=== PATIENT | male | born 1955 | race Caucasian/White ===

== ENCOUNTER 2018-07-03 17:10 | Inpatient (IN) | payer MEDICARE ==
[2018-07-03] MEDS ORDERED: Ondansetron PF 4 MG/2 ML Vial ONE (17:38)
--- NOTE | 2018-07-03 18:52 | CT ---
CT OF BRAIN PERFORMED WITHOUT CONTRAST ENHANCEMENT: History: Head injury. FINDINGS: The ventricular and cisternal system shows some mild generalized atrophy. There are no signs of any i ntracerebral hemorrhage or extraaxial fluid collection. Mastoid air cells and visualized sinuses are clear. IMPRESSION: No acute intracranial abnormalities. POS: [facility]
[2018-07-03 19:06] LABS: #Basophils 0.1 thou/uL (0.0-0.2); #Eosinphils 0.1 thou/uL (0.0-0.7); #Lymphocytes 0.7 thou/uL (1.20-3.40); #Monocytes 0.8 thou/uL (0.11-0.59); %Basophils 0.6 % (0.0-1.0); %Eosinophils 0.7 % (0.0-10.0); %Lymphocytes 7.6 % (21.0-51.0); %Monocytes 9.4 % (0.0-10.0); %Neutrophils 81.7 % (42.0-75.0); Hemoglobin 10.5 g/dL (14.0-18.0); Mean Corpuscular HGB CONC 33.6 g/dL (32.0-36.0); Mean Corpuscular Hemoglobin 27.4 pg (27.0-31.0); Mean Corpuscular Volume 81.5 fL (78.0-98.0); Mean Platelet Volume 8.9 fL (7.4-10.4); Platelet Count 281 thou/uL (130-400); RBC Distribution Width 13.7 % (11.5-14.5); Red Blood Cell (RBC) Count 3.84 mill/uL (4.70-6.10); White Blood Cell (WBC) Count 8.6 thou/uL (4.8-10.8)
--- NOTE | 2018-07-03 19:08 | RAD ---
PORTABLE CHEST: 07/03/18 HISTORY: Patient fell down stairs. Diffuse pain. Heart size and mediastinum are within normal limits. The lungs are clear of any infiltrates. I do not visualize any rib fractures. No signs of pneumothorax. IMPRESSION: Unremarkable portable chest. POS: [facility]
[2018-07-03 19:22] LABS: Bilirubin Small (Negative); Blood, Urine Large (Negative); Clarity CLOUDY (Clear); Glucose, Urine (Dipstick) >=1000 mg/dL (Negative); Leukocyte Negative (Negative); Nitrite Negative (Negative); Protein, Urine (Dipstick) 100 mg/dL (Neg-Trace); Specific Gravity, Urine 1.028 (1.002-1.036)
[2018-07-03 19:23] LABS: Bacteria/HPF None Seen HPF (None Seen); RBC/HPF 0-3 HPF (0-3); Squamous Epithelial 0-3 HPF (0-3)
[2018-07-03 19:29] LABS: Pathc Cast-AUWi Flag 5.66 (0-2.49)
[2018-07-03 19:29] LABS: ALT (SGPT) 13 U/L (8-55); AST (SGOT) 27 U/L (5-34); Albumin 3.8 g/dL (3.4-4.8); Alkaline Phosphatase 127 U/L (40-150); Anion Gap 14 mmol/L (10-20); BUN (Urea Nitrogen) 24 mg/dL (8.4-25.7); CK (CPK) 852 U/L (30-200); Calc. Creatinine Clearance 0 mL/min (70-130); Calcium 9.3 mg/dL (7.8-10.44); Carbon Dioxide 26 mmol/L (23-31); Chloride 94 mmol/L (98-107); Estimated GFR-MDRD 33; Globulin 3.4 g/dL (2.4-3.5); Glucose 345 mg/dL (80-115); Potassium 3.8 mmol/L (3.5-5.1); Protein, Total 7.2 g/dL (5.8-8.1); Sodium 130 mmol/L (136-145)
[2018-07-03 19:38] LABS: Hyaline Casts/LPF 4-6 HYALINE CAST LPF (0-3 Hyaline); Manual Microscopic Reviewed? No Path Casts Seen; Renal Epithelial None Seen HPF (0-3); Transitional Epithelial NONE SEEN HPF (0-3)
[2018-07-03 23:34] LABS: Lactic Acid 1.5 mmol/L (0.5-2.2)
[2018-07-04 01:59] LABS: Troponin I Less than 0.010 ng/mL (< 0.028)
[2018-07-04] MEDS ORDERED: Sodium Chloride 0.9% 1,000 ML IV SCH ×2 (02:45→09:00)
[2018-07-04 03:34] VITALS: BMI 32.6
[2018-07-04] MEDS ORDERED: Insulin Regular 300 UNITS/3 ML VIAL SC PRN (08:47)
[2018-07-04] MEDS ORDERED: Dextrose 50% Abboject 50 ML SYRINGE SLOW IVP PRN (08:47)
[2018-07-04] MEDS ORDERED: Dextrose 5% in Water 1,000 ML IV PRN (08:47)
[2018-07-04] MEDS ORDERED: Ondansetron PF 4 MG/2 ML Vial IVP PRN (08:48)
[2018-07-04] MEDS ORDERED: Senokot S 8.6-50 MG TAB PO PRN (08:48)
[2018-07-04] MEDS ORDERED: Calcium Carbonate 500 MG ChewTAB PO PRN (08:48)
[2018-07-04] MEDS ORDERED: Ondansetron ODT 4 MG TAB PO PRN (08:48)
[2018-07-04] MEDS ORDERED: Acetaminophen 325 MG TAB PO PRN (08:48)
--- NOTE | 2018-07-04 10:30 | RAD ---
UPRIGHT AND SUPINE FRONTAL IMAGING OF THE ABDOMEN: Date: 07-04-18 Comparison: None. History: Evaluate for small bowel obstruction, nausea, vomiting, and abdominal pain. FINDINGS: Upright imaging demonstrates no free intraperitoneal air. There is no small or large bowel gaseous distention. No airfluid levels are seen on upright imaging. IMPRESSION: No evidence for free intraperitoneal air or small bowel obstruction. POS: [facility]
[2018-07-04 11:33] LABS: Anion Gap 11 mmol/L (10-20); BUN (Urea Nitrogen) 17 mg/dL (8.4-25.7); Calc. Creatinine Clearance 61 mL/min (70-130); Calcium 8.6 mg/dL (7.8-10.44); Carbon Dioxide 25 mmol/L (23-31); Chloride 100 mmol/L (98-107); Estimated GFR-MDRD 43; Glucose 207 mg/dL (80-115); Lipase 43 U/L (8-78); Magnesium 1.5 mg/dL (1.6-2.6); Phosphorus 2.4 mg/dL (2.3-4.7); Potassium 3.4 mmol/L (3.5-5.1); Sodium 133 mmol/L (136-145)
[2018-07-04] MEDS: Multivit, Therapeutic 1 TAB PO SCH (11:57)
[2018-07-04] MEDS: Insulin Regular 300 UNITS/3 ML VIAL SC PRN ×2 (11:58→16:56)
[2018-07-04 12:11] LABS: Folate (Folic Acid) 7.5 ng/mL (7.0-31.4)
[2018-07-04] MEDS ORDERED: Potassium Chloride 10 MEQ TAB PO SCH (12:45)
[2018-07-04] MEDS ORDERED: Magnesium 2 GM/NS 0.9% 100 ML 2 GM in Premix Bag 1 BAG IVPB SCH (12:45)
[2018-07-04] MEDS ORDERED: Magnesium 2 GM/50 ML 2 GM in Premix Bag 1 BAG IVPB SCH (13:00)
[2018-07-04] MEDS ORDERED: Nitroglycerin 0.4 MG TAB (25 Tab Bottle) PO PRN (15:44)
--- NOTE | 2018-07-04 16:50 | HP ---
PRIMARY CARE PHYSICIAN: Dr. Gerry Peoples. CHIEF COMPLAINT: Generalized weakness and frequent falls. HISTORY OF PRESENT ILLNESS: The patient is a 63-year-old male with diabetes mellitus type 2 and coronary artery disease, presented to the emergency room with the above complaints. The patient is a poor historian and limited information is available from the patient. He has been feeling weak and dizzy over the last 2 weeks. He also has been not eating well due to persistent nausea and vomiting. He had some diarrhea last week that has more or less improved. He denies any loss of consciousness. He also has been falling multiple times recently. He denies any headache, double vision, blurring of vision, or facial asymmetry. No fever or chills reported. In the emergency room, his initial vital signs showed temperature 99.3, respirations of 18, pulse rate of 115 with a blood pressure 96/67 with O2 saturation of 96% on room air. He received 2 L of IV fluid in the emergency room. His EKG showed sinus tachycardia with nonspecific ST-T wave changes. His blood pressure dropped from systolic 122 to systolic 84 on sitting up in the emergency room. PAST MEDICAL HISTORY: 1. Diabetes mellitus type 2. 2. Coronary artery disease. 3. Hypertension. 4. GERD. 5. Chronic systolic heart failure, ejection fraction 35% to 40% in the past. PAST SURGICAL HISTORY: 1. Cardiac catheterization. 2. Status post incision and drainage of buccal abscess. ALLERGIES: NO KNOWN DRUG ALLERGIES. CURRENT HOME MEDICATIONS: The patient does not remember any of his home medications. Family to obtain an accurate list of medications. SOCIAL HISTORY: The patient currently lives at home with his family. He makes his own decision with the help of his family. No smoking, alcohol, or drug use reported. He has a history of alcohol abuse in the past. FAMILY HISTORY: Positive for coronary artery disease. REVIEW OF SYSTEM: All other review of system was reviewed and was found negative. PHYSICAL EXAMINATION: VITAL SIGNS: As discussed above. GENERAL: A 63-year-old male in no apparent distress. Multiple skin bruising noted. HEENT: Head atraumatic, normocephalic. Sclerae anicteric. Moist mucous membranes. No oral lesion. NECK: Supple. No JVD. No carotid bruit. LUNGS: Clear to auscultation bilaterally. HEART: S1, S2 present. Regular rate and rhythm. No murmurs, rubs, or gallops appreciated. ABDOMEN: Soft and nontender. Bowel sounds present. EXTREMITIES: No edema or calf tenderness. NEUROLOGIC: Grossly nonfocal. Moves all four extremities. Power was 5/5 in all extremities. Dsudum-wn-ddvw and zgel-jo-mewz test was normal. PSYCHIATRIC: Alert, awake, and oriented x3. SKIN: Warm and dry. LYMPH NODES: No palpable lymph nodes in the neck. Peripheral, vascular, and radial pulses palpable bilaterally. MUSCULOSKELETAL: No joint swelling tenderness. LABORATORY FINDINGS: CBC showed WBC 8.6, hemoglobin 10.5, hematocrit 31.3, and platelet 281. Chemistry showed sodium 130 with potassium 3.8, glucose of 345, creatinine 2.06. Lactic acid 2.4, repeat lactic acid 1.5. CK of 852. Troponin was negative. Urinalysis was negative for bacteria, it showed 4 to 6 wbc. EKG by my review as discussed above. Chest x-ray by my review was negative for infiltrate. KUB by my review was negative for acute findings. IMPRESSION: 1. Near syncope, probably secondary to orthostatic hypotension. 2. Acute kidney injury on chronic kidney disease stage 2, probably secondary to dehydration as well as diuretics. 3. Diabetes mellitus type 2. 4. Lactic acidosis secondary to dehydration. 5. Elevated CK. 6. Hyponatremia. 7. Obesity with a BMI of 32.7. 8. History of hypertension. 9. Gastroesophageal reflux disease. 10. Coronary artery disease. 11. Anxiety and depression without any suicidal ideation. 12. Hypokalemia. His potassium this morning was 3.4. 13. Hypomagnesemia. His magnesium this morning was 1.5. 14. Vitamin B12 deficiency. His vitamin B12 was in the low normal range at 334. PLAN: The patient will be monitored on the telemetry unit. We will hold his antihypertensive agent. Gentle hydration. We will replace electrolytes. We will get echocardiogram. Insulin sliding scale. We will repeat CK in a.m. physical Therapy and Occupation Therapy consultation due to recurrent falls. His CT scan of the brain was negative. Plan of care was discussed with the patient in detail. He stated understanding. Job ID: [id number]
[2018-07-04] MEDS: glyBURIDE 5 MG TAB PO SCH (16:53)
[2018-07-04] MEDS: Sodium Chloride 0.9% 1,000 ML IV SCH ×2 (16:54→22:19)
[2018-07-04] MEDS: Potassium Chloride 10 MEQ TAB PO SCH (16:54)
[2018-07-04] MEDS ORDERED: Famotidine 20 MG TAB PO SCH (21:00)
[2018-07-04] MEDS: Metoprolol Tartrate 25 MG TAB PO SCH (22:14)
[2018-07-04] MEDS: TICAGRELOR 90 MG TABLET PO SCH (22:16)
[2018-07-05 06:00] LABS: #Eosinphils 0.1 thou/uL (0.0-0.7); #Lymphocytes 0.8 thou/uL (1.20-3.40); #Monocytes 0.5 thou/uL (0.11-0.59); #Neutrophils 3.9 thou/uL (1.40-6.50); %Basophils 0.4 % (0.0-1.0); %Eosinophils 2.2 % (0.0-10.0); %Lymphocytes 14.6 % (21.0-51.0); %Monocytes 9.1 % (0.0-10.0); %Neutrophils 73.7 % (42.0-75.0); Hemoglobin 8.3 g/dL (14.0-18.0); Mean Corpuscular HGB CONC 33.9 g/dL (32.0-36.0); Mean Corpuscular Hemoglobin 27.5 pg (27.0-31.0); Mean Corpuscular Volume 81.1 fL (78.0-98.0); Mean Platelet Volume 8.5 fL (7.4-10.4); Platelet Count 261 thou/uL (130-400); RBC Distribution Width 13.8 % (11.5-14.5); Red Blood Cell (RBC) Count 3.01 mill/uL (4.70-6.10); White Blood Cell (WBC) Count 5.2 thou/uL (4.8-10.8)
[2018-07-05 06:16] LABS: Phosphorus 1.8 mg/dL (2.3-4.7)
[2018-07-05 06:20] LABS: ALT (SGPT) 16 U/L (8-55); AST (SGOT) 26 U/L (5-34); Alkaline Phosphatase 115 U/L (40-150); Anion Gap 12 mmol/L (10-20); BUN (Urea Nitrogen) 13 mg/dL (8.4-25.7); Bilirubin, Total 0.8 mg/dL (0.2-1.2); CK (CPK) 327 U/L (30-200); Calc. Creatinine Clearance 77 mL/min (70-130); Calcium 8.3 mg/dL (7.8-10.44); Carbon Dioxide 21 mmol/L (23-31); Chloride 105 mmol/L (98-107); Estimated GFR-MDRD 56; Globulin 2.8 g/dL (2.4-3.5); Glucose 104 mg/dL (80-115); Magnesium 1.8 mg/dL (1.6-2.6); Potassium 3.1 mmol/L (3.5-5.1); Protein, Total 5.8 g/dL (5.8-8.1)
[2018-07-05 06:44] LABS: Sodium 135 mmol/L (136-145)
[2018-07-05] MEDS: TICAGRELOR 90 MG TABLET PO SCH ×2 (07:51→20:07)
[2018-07-05] MEDS: Multivit, Therapeutic 1 TAB PO SCH ×2 (07:51→07:53)
[2018-07-05] MEDS: K-Phos Neutral 250 MG TAB PO SCH ×3 (07:51→16:17)
[2018-07-05] MEDS: Potassium Chloride 10 MEQ TAB PO SCH ×3 (07:51→16:16)
[2018-07-05] MEDS: glyBURIDE 5 MG TAB PO SCH ×2 (07:51→16:16)
[2018-07-05] MEDS: Metoprolol Tartrate 25 MG TAB PO SCH ×2 (07:52→20:07)
[2018-07-05] MEDS: Citalopram 20 MG TAB PO SCH (07:52)
[2018-07-05] MEDS: Aspirin 81 mg Enteric Coated Tablet PO SCH (07:52)
[2018-07-05] MEDS: Gabapentin 300 MG CAP PO SCH (07:52)
[2018-07-05] MEDS: Cyanocobalamin (Vitamin B-12) 1,000 MCG TAB PO SCH (07:52)
[2018-07-05] MEDS: Insulin Glargine 10 UNITS in Pre-Filled Syringe 1 EACH SC SCH (08:19)
[2018-07-05] MEDS: Sodium Chloride 0.9% 1,000 ML IV SCH ×2 (08:19→20:06)
[2018-07-05] MEDS ORDERED: Non-Formulary Item 1 EACH (Omeprazole [Omeprazole] 40 MG) PO SCH (09:00)
[2018-07-05] MEDS: Insulin Regular 300 UNITS/3 ML VIAL SC PRN ×2 (11:37→16:52)
[2018-07-05] MEDS: Acetaminophen/Codeine 30-300mg Tablet PO PRN (11:38)
[2018-07-05] MEDS ORDERED: Cyclobenzaprine 10 MG TAB PO PRN (14:27)
--- NOTE | 2018-07-05 16:17 | PDOC.PN ---
- Subjective Encounter Start Date: 07/05/18 Encounter Start Time: 10:30 Patient seen and examined for Gen weakness. Feels better. Rt thigh pain from the fall. No new complaints. No overnight events - Objective Resuscitation Status - Order Detail: 07/04/18 08:48 Resuscitation Status Routine Resuscitation Status: FULL: Full Resuscitation MAR Reviewed: Yes Vital Signs & Weight: Vital Signs (12 hours) Temp Pulse Resp BP Pulse Ox 07/05/18 11:16 99.5 F 91 16 118/59 L 98 07/05/18 07:46 98.2 F 97 16 127/62 98 Weight Admit Weight 202 lb 6.4 oz Weight 206 lb 11.2 oz I&O: 07/04/18 07/05/18 07/06/18 06:59 06:59 06:59 Intake Total 440 4395 Output Total 450 500 Balance -10 3895 Result Diagrams: 07/05/18 05:30 07/05/18 05:30 Additional Labs: Accuchecks 07/05/18 07/04/18 07/04/18 05:24 20:15 16:41 POC Glucose 113 H 300 H 306 H Microbiology 07/03/18 19:05 Urine voided Urine Culture - Final NO GROWTH AT 36 HOURS Laboratory Tests 07/03/18 07/05/18 07/05/18 18:51 05:30 05:30 Phosphorus 1.8 L Creatine Kinase 852 H 327 H EKG Reviewed by me: Yes (Tele SR) Phys Exam - Physical Examination Constitutional: NAD Respiratory: no wheezing, no rhonchi Cardiovascular: RRR, no rub Gastrointestinal: soft, non-tender, positive bowel sounds Musculoskeletal: no edema Neurological: non-focal, normal sensation, moves all 4 limbs Psychiatric: normal affect, A&O x 3 Dx/Plan - Plan DVT proph w/SCDs 1. Near syncope, probably secondary to orthostatic hypotension/URIAH 2. Acute kidney injury on chronic kidney disease stage 2, probably secondary to dehydration as well as diuretics. 3. Diabetes mellitus type 2. 4. Lactic acidosis secondary to dehydration. 5. Elevated CK. 6. Hyponatremia. 7. Obesity with a BMI of 32.7. 8. History of hypertension. 9. Gastroesophageal reflux disease. 10. Coronary artery disease. 11. Anxiety and depression. 12. Hypokalemia/Hypophosphatemia 13. Hypomagnesemia. 14. Vitamin B12 deficiency. PLAN: Cont IVF AM labs Repeat Orthostatic vitals in AM Replace electrolytes Cont other meds as below Diuretics on hold Review of Systems - Review of Systems Respiratory: negative: Cough, Dry, Shortness of Breath, Hemoptysis, SOB with Excertion, Pleuritic Pain, Sputum, Wheezing Cardiovascular: negative: chest pain, palpitations, orthopnea, paroxysmal nocturnal dyspnea, edema, light headedness, other - Medications/Allergies Allergies/Adverse Reactions: Allergies Allergy/AdvReac Type Severity Reaction Status Date / Time No Known Drug Allergies Allergy Verified 07/04/18 03:02 Medications: Current Medications Acetaminophen (Tylenol) 650 mg PO Q4H PRN PRN Reason: Headache/Fever/Mild Pain (1-3) Acetaminophen/Codeine Phosphate (Tylenol #3) 1 tab PO Q6H PRN PRN Reason: Moderate Pain (4-6) Last Admin: 07/05/18 11:38 Dose: 1 tab Aspirin (Ecotrin) 81 mg PO DAILY [facility] Last Admin: 07/05/18 07:52 Dose: 81 mg Calcium Carbonate (Tums) 1,000 mg PO Q4H PRN PRN Reason: Heartburn or Indigestion Citalopram Hydrobromide (Celexa) 40 mg PO DAILY [facility] Last Admin: 07/05/18 07:52 Dose: 40 mg Cyanocobalamin (Vitamin B-12) 1,000 mcg PO DAILY [facility] Last Admin: 07/05/18 07:52 Dose: 1,000 mcg Cyclobenzaprine HCl (Flexeril) 5 mg PO TID PRN PRN Reason: Muscle Spasm Stop: 07/07/18 14:28 Dextrose/Water (Dextrose 50%) 25 gm SLOW IVP PRN PRN PRN Reason: Hypoglycemia Gabapentin (Neurontin) 600 mg PO DAILY [facility] Last Admin: 07/05/18 07:52 Dose: 600 mg Glucagon (Glucagon) 1 mg IM PRN PRN PRN Reason: Hypoglycemia Glyburide (Diabeta) 5 mg PO BID-[facility] Last Admin: 07/05/18 07:51 Dose: 5 mg Dextrose/Water (D5w) 1,000 mls @ 0 mls/hr IV .Q0M PRN PRN Reason: Hypoglycemia Sodium Chloride (Normal Saline 0.9%) 1,000 mls @ 100 mls/hr IV .Q10H [facility] Last Admin: 07/05/18 08:19 Dose: 1,000 mls Insulin Glargine 10 units/ (Miscellaneous Medication) 0.1 mls @ 0 mls/hr SC QAM [facility] Last Admin: 07/05/18 08:19 Dose: 0.1 mls Insulin Human Regular (Humulin R) 0 units SC .MILD SLIDING SCALE PRN PRN Reason: Mild Correctional Scale Last Admin: 07/05/18 11:37 Dose: 5 unit Insulin Human Regular (Humulin R) 0 units SC .BEDTIME SLIDING SC PRN PRN Reason: Bedtime Correctional Scale Last Admin: 07/04/18 23:16 Dose: 3 unit Metoprolol Tartrate (Lopressor) 12.5 mg PO BID [facility] Last Admin: 07/05/18 07:52 Dose: 12.5 mg Multivitamins (Theragran) 1 tab PO DAILY [facility] Last Admin: 07/05/18 07:53 Dose: Not Given Multivitamins (Theragran) 1 tab PO DAILY [facility] Last Admin: 07/05/18 07:51 Dose: 1 tab Nitroglycerin (Nitrostat) 0.4 mg PO Q5MIN PRN PRN Reason: Chest Pain Ondansetron HCl (Zofran Odt) 4 mg PO Q6H PRN PRN Reason: Nausea/Vomiting Ondansetron HCl (Zofran) 4 mg IVP Q6H PRN PRN Reason: Nausea/Vomiting Pantoprazole Sodium (Protonix) 40 mg PO DAILY [facility] Last Admin: 07/05/18 07:53 Dose: 40 mg Phosphorus (Kphos Neutral) 500 mg PO TID-[facility] Last Admin: 07/05/18 11:21 Dose: 500 mg Potassium Chloride (Klor-Con 10) 10 meq PO TID-[facility] Last Admin: 07/05/18 11:21 Dose: 10 meq Senna/Docusate Sodium (Senokot S) 2 tab PO BID PRN PRN Reason: Constipation Sodium Chloride (Flush - Normal Saline) 10 ml IVF Q12HR [facility] Last Admin: 07/05/18 07:53 Dose: Not Given Sodium Chloride (Flush - Normal Saline) 10 ml IVF PRN PRN PRN Reason: Saline Flush Ticagrelor (Brilinta) 90 mg PO BID [facility] Last Admin: 07/05/18 07:51 Dose: 90 mg
[2018-07-06] MEDS: Sodium Chloride 0.9% 1,000 ML IV SCH ×3 (05:13→23:50)
[2018-07-06] MEDS: Acetaminophen/Codeine 30-300mg Tablet PO PRN ×3 (05:26→23:48)
[2018-07-06 06:27] LABS: Hemoglobin 8.5 g/dL (14.0-18.0); Platelet Count 271 thou/uL (130-400)
[2018-07-06 07:13] LABS: Anion Gap 11 mmol/L (10-20); BUN (Urea Nitrogen) 9 mg/dL (8.4-25.7); Calc. Creatinine Clearance 79 mL/min (70-130); Calcium 8.2 mg/dL (7.8-10.44); Carbon Dioxide 21 mmol/L (23-31); Chloride 107 mmol/L (98-107); Estimated GFR-MDRD 57; Glucose 119 mg/dL (80-115); Phosphorus 3.2 mg/dL (2.3-4.7); Potassium 3.2 mmol/L (3.5-5.1); Sodium 136 mmol/L (136-145)
[2018-07-06] MEDS: K-Phos Neutral 250 MG TAB PO SCH ×3 (08:55→16:53)
[2018-07-06] MEDS: Insulin Glargine 10 UNITS in Pre-Filled Syringe 1 EACH SC SCH (08:55)
[2018-07-06] MEDS: Gabapentin 300 MG CAP PO SCH (08:56)
[2018-07-06] MEDS: Metoprolol Tartrate 25 MG TAB PO SCH (08:56)
[2018-07-06] MEDS: glyBURIDE 5 MG TAB PO SCH ×2 (08:56→16:53)
[2018-07-06] MEDS: Cyanocobalamin (Vitamin B-12) 1,000 MCG TAB PO SCH (08:56)
[2018-07-06] MEDS: TICAGRELOR 90 MG TABLET PO SCH ×2 (08:56→20:26)
[2018-07-06] MEDS: Multivit, Therapeutic 1 TAB PO SCH ×2 (08:56→08:57)
[2018-07-06] MEDS: Aspirin 81 mg Enteric Coated Tablet PO SCH (08:56)
[2018-07-06] MEDS: Citalopram 20 MG TAB PO SCH (08:56)
--- NOTE | 2018-07-06 12:27 | EKG ---
Test Reason : WEAKNESS Blood Pressure : / mmHG Vent. Rate : 112 BPM Atrial Rate : 112 BPM P-R Int : 190 ms QRS Dur : 104 ms QT Int : 332 ms P-R-T Axes : 047 022 029 degrees QTc Int : 453 ms Sinus tachycardia Inferior infarct , age undetermined Cannot rule out Anterior infarct , age undetermined Abnormal ECG Confirmed by KARIS BERNAL ([id number]), script editor GRAEME KIRKLAND ([id number]) on 07/06/2018 12:27:38 PM Referred By: GABE Confirmed By:KARIS BERNAL
[2018-07-06] MEDS: Potassium Chloride 20 MEQ TAB PO SCH ×2 (12:30→16:53)
--- NOTE | 2018-07-06 14:05 | PDOC.PN ---
- Subjective Encounter Start Date: 07/06/18 Encounter Start Time: 09:30 Patient seen and examined for Orthostatic hypotension. Feels better. No new complaints. No overnight events - Objective Resuscitation Status - Order Detail: 07/04/18 08:48 Resuscitation Status Routine Resuscitation Status: FULL: Full Resuscitation MAR Reviewed: Yes Vital Signs & Weight: Vital Signs (12 hours) Temp Pulse Resp BP BP BP Pulse Ox 07/06/18 11:08 98.4 F 93 16 98 07/06/18 10:37 89 135/65 111/58 L 90/54 L 07/06/18 07:30 97.6 F 93 16 146/69 H 98 07/06/18 04:00 98.9 F 92 14 144/67 H 98 Weight Admit Weight 202 lb 6.4 oz Weight 205 lb 8 oz I&O: 07/05/18 07/06/18 07/07/18 06:59 06:59 06:59 Intake Total 4395 2900 720 Output Total 500 1850 Balance 3895 1050 720 Result Diagrams: 07/06/18 05:47 07/06/18 05:47 Additional Labs: Accuchecks 07/06/18 07/06/18 07/05/18 10:56 05:32 20:14 POC Glucose 167 H 127 H 273 H 07/05/18 16:43 POC Glucose 195 H EKG Reviewed by me: Yes (Tele SR) Phys Exam - Physical Examination Constitutional: NAD Respiratory: no wheezing, no rhonchi Cardiovascular: RRR, no rub Gastrointestinal: soft, non-tender, positive bowel sounds Musculoskeletal: no edema Neurological: moves all 4 limbs Dx/Plan - Plan DVT proph w/SCDs 1. Near syncope, probably secondary to orthostatic hypotension/URIAH 2. Acute kidney injury on chronic kidney disease stage 2, probably secondary to dehydration as well as diuretics. improving 3. Diabetes mellitus type 2. 4. Lactic acidosis secondary to dehydration. 5. Anemia - ?Acute on chronic 6. Hyponatremia. 7. Obesity with a BMI of 32.7. 8. History of hypertension. 9. Gastroesophageal reflux disease. 10. Coronary artery disease. 11. Anxiety and depression. 12. Hypokalemia/Hypophosphatemia 13. Hypomagnesemia. 14. Vitamin B12 deficiency/Elevated Ck PLAN: Orthostatic vitals signs positive Will hold Metoprolol Cont IVF AM labs Repeat Orthostatic vitals in AM Replace Potassium Cont other meds as below Diuretics on hold Stool for occult blood Increase Lantus dose Review of Systems - Review of Systems Cardiovascular: negative: chest pain, palpitations, orthopnea, paroxysmal nocturnal dyspnea, edema, light headedness, other Gastrointestinal: negative: Nausea, Vomiting, Abdominal Pain, Diarrhea, Constipation, Melena, Hematochezia, Other - Medications/Allergies Allergies/Adverse Reactions: Allergies Allergy/AdvReac Type Severity Reaction Status Date / Time No Known Drug Allergies Allergy Verified 07/04/18 03:02 Medications: Current Medications Acetaminophen (Tylenol) 650 mg PO Q4H PRN PRN Reason: Headache/Fever/Mild Pain (1-3) Acetaminophen/Codeine Phosphate (Tylenol #3) 1 tab PO Q6H PRN PRN Reason: Moderate Pain (4-6) Last Admin: 07/06/18 05:26 Dose: 1 tab Aspirin (Ecotrin) 81 mg PO DAILY [facility] Last Admin: 07/06/18 08:56 Dose: 81 mg Calcium Carbonate (Tums) 1,000 mg PO Q4H PRN PRN Reason: Heartburn or Indigestion Citalopram Hydrobromide (Celexa) 40 mg PO DAILY [facility] Last Admin: 07/06/18 08:56 Dose: 40 mg Cyanocobalamin (Vitamin B-12) 1,000 mcg PO DAILY [facility] Last Admin: 07/06/18 08:56 Dose: 1,000 mcg Cyclobenzaprine HCl (Flexeril) 5 mg PO TID PRN PRN Reason: Muscle Spasm Stop: 07/07/18 14:28 Last Admin: 07/05/18 16:16 Dose: 5 mg Dextrose/Water (Dextrose 50%) 25 gm SLOW IVP PRN PRN PRN Reason: Hypoglycemia Gabapentin (Neurontin) 600 mg PO DAILY [facility] Last Admin: 07/06/18 08:56 Dose: 600 mg Glucagon (Glucagon) 1 mg IM PRN PRN PRN Reason: Hypoglycemia Glyburide (Diabeta) 5 mg PO BID-[facility] Last Admin: 07/06/18 08:56 Dose: 5 mg Dextrose/Water (D5w) 1,000 mls @ 0 mls/hr IV .Q0M PRN PRN Reason: Hypoglycemia Sodium Chloride (Normal Saline 0.9%) 1,000 mls @ 100 mls/hr IV .Q10H [facility] Last Admin: 07/06/18 05:13 Dose: 1,000 mls Insulin Glargine 10 units/ (Miscellaneous Medication) 0.1 mls @ 0 mls/hr SC QAM [facility] Last Admin: 07/06/18 08:55 Dose: 0.1 mls Insulin Human Regular (Humulin R) 0 units SC .MILD SLIDING SCALE PRN PRN Reason: Mild Correctional Scale Last Admin: 07/05/18 16:52 Dose: 2 unit Insulin Human Regular (Humulin R) 0 units SC .BEDTIME SLIDING SC PRN PRN Reason: Bedtime Correctional Scale Last Admin: 07/04/18 23:16 Dose: 3 unit Multivitamins (Theragran) 1 tab PO DAILY [facility] Last Admin: 07/06/18 08:57 Dose: Not Given Multivitamins (Theragran) 1 tab PO DAILY [facility] Last Admin: 07/06/18 08:56 Dose: 1 tab Nitroglycerin (Nitrostat) 0.4 mg PO Q5MIN PRN PRN Reason: Chest Pain Ondansetron HCl (Zofran Odt) 4 mg PO Q6H PRN PRN Reason: Nausea/Vomiting Ondansetron HCl (Zofran) 4 mg IVP Q6H PRN PRN Reason: Nausea/Vomiting Pantoprazole Sodium (Protonix) 40 mg PO DAILY [facility] Last Admin: 07/06/18 08:56 Dose: 40 mg Phosphorus (Kphos Neutral) 500 mg PO TID-[facility] Last Admin: 07/06/18 11:45 Dose: 500 mg Potassium Chloride (K-Dur) 20 meq PO TID-[facility] Stop: 07/06/18 17:01 Last Admin: 07/06/18 12:30 Dose: 20 meq Senna/Docusate Sodium (Senokot S) 2 tab PO BID PRN PRN Reason: Constipation Sodium Chloride (Flush - Normal Saline) 10 ml IVF Q12HR [facility] Last Admin: 07/06/18 08:57 Dose: Not Given Sodium Chloride (Flush - Normal Saline) 10 ml IVF PRN PRN PRN Reason: Saline Flush Ticagrelor (Brilinta) 90 mg PO BID [facility] Last Admin: 07/06/18 08:56 Dose: 90 mg
[2018-07-06] MEDS: Insulin Regular 300 UNITS/3 ML VIAL SC PRN (16:53)
[2018-07-07 06:05] LABS: Hemoglobin 8.6 g/dL (14.0-18.0); Platelet Count 301 thou/uL (130-400)
[2018-07-07] MEDS: Acetaminophen/Codeine 30-300mg Tablet PO PRN ×2 (06:06→15:29)
[2018-07-07 06:23] LABS: Anion Gap 11 mmol/L (10-20); BUN (Urea Nitrogen) 9 mg/dL (8.4-25.7); Calc. Creatinine Clearance 93 mL/min (70-130); Calcium 8.3 mg/dL (7.8-10.44); Carbon Dioxide 21 mmol/L (23-31); Chloride 106 mmol/L (98-107); Estimated GFR-MDRD 69; Glucose 142 mg/dL (80-115); Magnesium 1.4 mg/dL (1.6-2.6); Phosphorus 3.3 mg/dL (2.3-4.7); Potassium 3.5 mmol/L (3.5-5.1); Sodium 134 mmol/L (136-145)
[2018-07-07] MEDS: Sodium Chloride 0.9% 1,000 ML IV SCH (08:16)
[2018-07-07] MEDS: K-Phos Neutral 250 MG TAB PO SCH ×3 (08:16→17:43)
[2018-07-07] MEDS: Cyanocobalamin (Vitamin B-12) 1,000 MCG TAB PO SCH (08:17)
[2018-07-07] MEDS: Citalopram 20 MG TAB PO SCH (08:17)
[2018-07-07] MEDS: Multivit, Therapeutic 1 TAB PO SCH (08:17)
[2018-07-07] MEDS: glyBURIDE 5 MG TAB PO SCH ×2 (08:17→17:43)
[2018-07-07] MEDS: TICAGRELOR 90 MG TABLET PO SCH (08:17)
[2018-07-07] MEDS: Gabapentin 300 MG CAP PO SCH (08:17)
[2018-07-07] MEDS: Aspirin 81 mg Enteric Coated Tablet PO SCH (08:17)
[2018-07-07] MEDS ORDERED: Insulin Glargine 20 UNITS in Pre-Filled Syringe 1 EACH SC SCH (09:00)
[2018-07-07 15:26] VITALS: BP 133/70; TEMP 99.1
--- NOTE | 2018-07-07 20:01 | DIS ---
DATE OF ADMISSION: 07/03/2018 DATE OF DISCHARGE: 07/07/2018 FINAL DIAGNOSES: 1. Orthostatic hypotension causing near syncope. 2. Acute kidney injury, improved. 3. Diabetes mellitus, type 2. 4. Anemia. 5. Hyponatremia. 6. Obesity. 7. Hypertension. 8. Coronary artery disease. 9. Anxiety and depression. 10. Hypokalemia/hypophosphatemia/hypomagnesemia, replaced. 11. Vitamin B12 deficiency. HOSPITAL COURSE: The patient is a 63-year-old male with history of type 2 diabetes mellitus, coronary artery disease, who presented to the emergency room with complaints of generalized weakness and frequent falls. He feels weak and dizzy for over last 2 weeks. He did not have syncopal episode, but he has several near syncopes. He denied any loss of consciousness. No headaches. No double vision. No fever. No chills. In the emergency room evaluation, he received 2 L of IV fluid since he was found to be positive for orthostatics. His EKG showed sinus tachycardia with nonspecific ST-T wave changes. His diuretic was stopped and he was given more fluids. His beta-marie was stopped and finally, his orthostasis improved. Today, his blood pressure on lying is 112/56 and on standing up is 133/70. He is not having any complaints to offer. He is discharged home with recommendation to stay on 2000-calories ADA diet. ACTIVITIES: As tolerated. MEDICATIONS: At the time of discharge; 1. Insulin aspart 48 units q.p.m. 2. Insulin aspart 45 units q.a.m. 3. Metformin 1000 mg twice a day. 4. Glyburide 5 mg twice a day. 5. Rosuvastatin 40 mg q.h.s. 6. Omeprazole 40 mg once a day. 7. Ticagrelor 90 mg twice a day. 8. Aspirin 81 mg once a day. 9. Bydureon 2 mg subcutaneous every 7 days. 10. Citalopram 40 mg once a day. The patient is seen and examined before his discharge. He is going to follow up with his primary care physician in 3 days and he will make adjustment to his medications. His Lasix, potassium, and metoprolol were put on hold and time spent on this discharge is less than 30 minutes. Job ID: [id number]
== END 2018-07-07 18:11 | disposition home or self-care (01) | DRG 312 ==
LOC: ERS 17:10 → 2NO 21:43
PROVIDERS: ADMIT Hospitalist; ATTEND Hospitalist
PROC: B24BZZZ Ultrasonography of Heart with Aorta (ICD-10-PCS; principal; 2018-07-05)
DX: I95.1 Orthostatic hypotension (principal); I50.22 Chronic systolic (congestive) heart failure; N17.9 Acute kidney failure, unspecified; E87.1 Hypo-osmolality and hyponatremia; E87.2 Acidosis; I11.0 Hypertensive heart disease with heart failure; E11.9 Type 2 diabetes mellitus without complications; I25.10 Atherosclerotic heart disease of native coronary artery without angina pectoris; D64.9 Anemia, unspecified; E66.9 Obesity, unspecified; Z68.33 Body mass index [BMI] 33.0-33.9, adult; F41.8 Other specified anxiety disorders; E87.6 Hypokalemia; E83.39 Other disorders of phosphorus metabolism; E83.42 Hypomagnesemia; Z79.4 Long term (current) use of insulin; Z79.84 Long term (current) use of oral hypoglycemic drugs; Z79.82 Long term (current) use of aspirin; E86.0 Dehydration; K21.9 Gastro-esophageal reflux disease without esophagitis; E53.8 Deficiency of other specified B group vitamins
CPT/HCPCS: 36415; 36416; 70450; 71045; 74019; 80048; 80053; 81003; 81015; 82550; 82607; 82746; 83605; 83690; 83735; 84100; 84484; 85014; 85018; 85025; 85049; 87086; 90471; 90732; 93005; 93306; 94760; 96361; 96374; G0009; G8978-GP-CJ; G8979-GP-CJ; G8980-GP-CJ; G8987-GO-CK; G8988-GO-CI; J1815; J2405; J3475; Q0162

== ENCOUNTER 2019-08-18 12:48 | Emergency (ER) | payer MEDICARE ==
[2019-08-18] MEDS ORDERED: Lidocaine 1% w/Epinephrine 1:100K 20 ML VIAL ONE (13:12)
[2019-08-18 14:12] LABS: #Basophils 0.1 thou/uL (0.0-0.2); #Eosinphils 0.7 thou/uL (0.0-0.7); #Lymphocytes 0.8 thou/uL (1.20-3.40); #Monocytes 0.6 thou/uL (0.11-0.59); #Neutrophils 6.7 thou/uL (1.40-6.50); %Basophils 0.6 % (0.0-1.0); %Eosinophils 7.8 % (0.0-10.0); %Monocytes 6.8 % (0.0-10.0); %Neutrophils 75.8 % (42.0-75.0); Hemoglobin 11.8 g/dL (14.0-18.0); Mean Corpuscular HGB CONC 34.3 g/dL (32.0-36.0); Mean Corpuscular Hemoglobin 27.5 pg (27.0-31.0); Mean Corpuscular Volume 80.1 fL (78.0-98.0); Platelet Count 216 thou/uL (130-400); RBC Distribution Width 12.2 % (11.5-14.5); Red Blood Cell (RBC) Count 4.28 mill/uL (4.70-6.10); White Blood Cell (WBC) Count 8.9 thou/uL (4.8-10.8)
[2019-08-18 14:36] LABS: ALT (SGPT) 8 U/L (8-55); AST (SGOT) 14 U/L (5-34); Albumin 4.2 g/dL (3.4-4.8); Alkaline Phosphatase 111 U/L (40-110); Anion Gap 21 mmol/L (10-20); BUN (Urea Nitrogen) 20 mg/dL (8.4-25.7); Bilirubin, Total 0.8 mg/dL (0.2-1.2); Calc. Creatinine Clearance 0 mL/min (70-130); Calcium 8.8 mg/dL (7.8-10.44); Carbon Dioxide 27 mmol/L (23-31); Chloride 92 mmol/L (98-107); Estimated GFR-MDRD 32; Globulin 3.3 g/dL (2.4-3.5); Glucose 219 mg/dL (80-115); Protein, Total 7.5 g/dL (5.8-8.1); Sodium 137 mmol/L (136-145)
[2019-08-18 14:40] LABS: Potassium 2.6 mmol/L (3.5-5.1)
[2019-08-18] MEDS ORDERED: Adacel (T-DAP) 0.5 ML SYRINGE ONE (14:56)
== END 2019-08-18 15:00 | disposition home or self-care (01) ==
LOC: ERS 12:48
DX: S01.111A Laceration without foreign body of right eyelid and periocular area, initial encounter (principal); I25.10 Atherosclerotic heart disease of native coronary artery without angina pectoris; E11.9 Type 2 diabetes mellitus without complications; Z79.899 Other long term (current) drug therapy; Z79.4 Long term (current) use of insulin; Z79.82 Long term (current) use of aspirin; W22.03XA Walked into furniture, initial encounter
CPT/HCPCS: 12052; 36415; 80053; 85025; 90471; 90715; 93005

== ENCOUNTER 2019-08-23 21:15 | Inpatient (IN) | payer MEDICARE ==
--- NOTE | 2019-08-23 22:04 | CT ---
NONCONTRAST CT HEAD: 08/23/19 HISTORY: Multiple falls today. Patient does not remember falling. Actively vomiting upon arrival. COMPARISON: 07/03/18. FINDINGS: There is mild chronic small vessel ischemic changes and cerebral volume loss again present. There is no evidence of an acute infarction, hemorrhage, mass effect or midline shift. The ventricular system is normal in size, shape, and position. No calvarial fracture is seen. The visualized paranasal sinuses and mastoid air cells are clear. There is increased density seen within the soft tissues of the upper most neck also present on the pr ior study in 2018 and may be related to scarring given stability over this period of time. There is mild right supraorbital scalp soft tissue swelling. IMPRESSION: 1. Stable CT head without evidence of an acute intracranial abnormality demonstrated. 2. Mild right supraorbital scalp soft tissue hematoma. POS: [facility]
--- NOTE | 2019-08-23 22:29 | RAD ---
EXAM: CHEST ONE VIEW HISTORY: Chest pain COMPARISON: 07/03/2018 FINDINGS: The cardiac silhouette and pulmonary vasculature is within normal limits. The lungs are clear. The os seous structures are intact. There has been no interval change from prior study. IMPRESSION: No acute cardiopulmonary process.
[2019-08-23 22:30] LABS: #Eosinphils 0.8 thou/uL (0.0-0.7); #Lymphocytes 0.8 thou/uL (1.20-3.40); #Monocytes 0.6 thou/uL (0.11-0.59); #Neutrophils 4.6 thou/uL (1.40-6.50); %Basophils 0.5 % (0.0-1.0); %Eosinophils 11.3 % (0.0-10.0); %Monocytes 8.5 % (0.0-10.0); %Neutrophils 67.8 % (42.0-75.0); Hemoglobin 10.8 g/dL (14.0-18.0); Mean Corpuscular HGB CONC 34.7 g/dL (32.0-36.0); Mean Corpuscular Hemoglobin 27.3 pg (27.0-31.0); Mean Corpuscular Volume 78.7 fL (78.0-98.0); Mean Platelet Volume 9.2 fL (7.4-10.4); Platelet Count 222 thou/uL (130-400); RBC Distribution Width 12.9 % (11.5-14.5); Red Blood Cell (RBC) Count 3.95 mill/uL (4.70-6.10); White Blood Cell (WBC) Count 6.9 thou/uL (4.8-10.8)
[2019-08-23] MEDS ORDERED: Magnesium 2 GM/50 ML BAG (IN WATER) ONE ×2 (22:30→23:26)
[2019-08-23] MEDS ORDERED: Mag-Al 1200 mg/1200 mg/30 ML UDCUP ONE (22:30)
[2019-08-23] MEDS ORDERED: Lidocaine Viscous Sol 2% 15 ml UD Cup ONE (22:30)
[2019-08-23 22:52] LABS: ALT (SGPT) 9 U/L (8-55); AST (SGOT) 14 U/L (5-34); Alkaline Phosphatase 120 U/L (40-110); Anion Gap 20 mmol/L (10-20); BUN (Urea Nitrogen) 23 mg/dL (8.4-25.7); Bilirubin, Total 0.7 mg/dL (0.2-1.2); Calc. Creatinine Clearance 0 mL/min (70-130); Calcium 8.5 mg/dL (7.8-10.44); Carbon Dioxide 30 mmol/L (23-31); Chloride 87 mmol/L (98-107); Estimated GFR-MDRD 32; Globulin 3.4 g/dL (2.4-3.5); Glucose 240 mg/dL (80-115); Lipase 91 U/L (8-78); Magnesium 1.4 mg/dL (1.6-2.6); Protein, Total 7.4 g/dL (5.8-8.1); Sodium 135 mmol/L (136-145)
[2019-08-23 23:11] LABS: Potassium 2.3 mmol/L (3.5-5.1)
[2019-08-23 23:15] LABS: CKMB 3.1 ng/mL (0-6.6)
[2019-08-23] MEDS ORDERED: Potassium Chloride 20 MEQ TAB ONE (23:26)
[2019-08-23] MEDS ORDERED: NS 0.9% w/ 40 MEQ KCL 1,000 ML IV SCH (23:30)
--- NOTE | 2019-08-24 00:04 | PDOC.FPRHP ---
- History of Present Illness Chief Complaint: recurrent falls History of Present Illness: Patient is a 64M with PMHx of CAD and DM2 that presents with recurrent falls. Patient was recently seen at the ED after a fall earlier this week and had a laceration above his R eye repaired. Per patient he fell 3 times today, each time losing consciousness. These falls were witnessed by his son, who patient states denied seeing him hit his head. Patient reports that each time he was walking before he fell. He states that for about the past 1.5 years he has been dealing with feelings of dizziness constantly, orthostatic hypotension, and recurrent falls. He had 2-3 stents placed by his boatswain mate in [place] about 6 months ago. Reports of a possible "small" CT approximately 10 years ago, though he cannot recall. ED Course: 60meq KCL PO, 1L 20meq KCl in NS, 2g mag x 2, GI cocktail, 1L NS - Allergies/Adverse Reactions Allergies Allergy/AdvReac Type Severity Reaction Status Date / Time No Known Drug Allergies Allergy Verified 07/04/18 03:02 - Home Medications Medication Instructions Recorded Confirmed Type Acetaminophen [Tylenol Extra 500 mg PO Q6HR PRN 07/04/18 08/24/19 History Strength] Aspirin [Ecotrin Low Strength] 81 mg PO DAILY 07/04/18 08/24/19 History Citalopram Hydrobromide 40 mg PO DAILY 07/04/18 08/24/19 History [Citalopram HBr] Exenatide Microspheres [Bydureon] 2 mg SQ Q7DAYS 07/04/18 08/24/19 History Gabapentin 600 mg PO BID 07/04/18 08/24/19 History Rosuvastatin Calcium [Crestor] 20 mg PO DAILY 07/04/18 08/24/19 History Ticagrelor [Brilinta] 90 mg PO BID 07/04/18 08/24/19 History glyBURIDE 10 mg PO BID-WM 07/04/18 08/24/19 History metFORMIN HCl [Metformin HCl] 1,000 mg PO BID 07/04/18 08/24/19 History Cinnamon Bark [Cinnamon] 500 mg PO DAILY 08/24/19 08/24/19 History DULoxetine [Cymbalta] 30 mg PO DAILY 08/24/19 08/24/19 History Fludrocortisone Acetate 0.1 mg PO DAILY 08/24/19 08/24/19 History Furosemide 40 mg PO DAILY 08/24/19 08/24/19 History Insulin Aspart [Novolog] 0 unit SQ PRN PRN 08/24/19 08/24/19 History Iron 65 mg PO DAILY 08/24/19 08/24/19 History Magnesium Oxide 400 mg PO DAILY 08/24/19 08/24/19 History Potassium Chloride 10 meq PO DAILY 08/24/19 08/24/19 History Ubidecarenone [Co Q-10] 0 mg PO DAILY 08/24/19 08/24/19 History - History PMHx: CAD, DM2 PSHx: 2-3 cardiac stents, stent in R leg FHx: maternal grandfather passed of CT, maternal grandmother had CHF, Father had an arrhythmia (unsure of type) Social: 10 pack yr smoking hx, quit 30 years ago; etoh abuse hx quit 30 years ago, hx of drug use "of all kinds" including IV, quit 30 years ago - Review of Systems General: reports: other (dizziness, falls). denies: fever/chills, weight/ appetite/sleep changes Eyes: denies: eye pain, vision changes ENT: denies: nasal congestion, rhinorrhea Respiratory: denies: cough, shortness of breath Cardiovascular: denies: chest pain, edema Gastrointestinal: denies: nausea, vomiting, diarrhea Genitourinary: denies: incontinence, polyuria Skin: denies: rashes, jaundice Musculoskeletal: denies: tenderness, stiffness Neurological: reports: syncope (x3 today). denies: seizure Psychological: denies: anxiety, depression - Vital signs BP: [110/63] HR: [105] RR: [12] Tmax: [98.9] Pox: [99]% on [RA] Wt: [90.72kg] - Physical Exam Constitutional: NAD, awake, alert and oriented HEENT: EOMI, MMM Neck: supple, FROM Chest: no-tender to palpation, no lesions Heart: RRR, normal S1/S2 Lungs: CTAB, no respiratory distress Abdomen: soft, non-tender Musculoskeletal: normal structure, normal tone Neurological: CN II-XII intact, other (decreased sensation toes bilaterally) Skin: good turgor, other (healing lac above R eye) Heme/Lymphatic: no unusual bruising or bleeding, no petechia Psychiatric: normal mood and affect, good judgment and insight FMR H&P: Results - Labs Result Diagrams: 08/24/19 02:02 08/24/19 11:42 Lab results: WBC 6.9 thou/uL (4.8-10.8) 08/23/19 22:22 Hgb 10.8 g/dL (14.0-18.0) L 08/23/19 22:22 Hct 31.1 % (42.0-52.0) L 08/23/19 22:22 MCV 78.7 fL (78.0-98.0) 08/23/19 22:22 Plt Count 222 thou/uL (130-400) 08/23/19 22:22 Neutrophils % 67.8 % (42.0-75.0) 08/23/19 22:22 Sodium 135 mmol/L (136-145) L 08/23/19 22:22 Potassium 2.3 mmol/L (3.5-5.1) L* 08/23/19 22:22 Chloride 87 mmol/L (98-107) L 08/23/19 22:22 Carbon Dioxide 30 mmol/L (23-31) 08/23/19 22:22 BUN 23 mg/dL (8.4-25.7) 08/23/19 22:22 Creatinine 2.08 mg/dL (0.7-1.3) H 08/23/19 22:22 Glucose 240 mg/dL (80-115) H 08/23/19 22:22 Calcium 8.5 mg/dL (7.8-10.44) 08/23/19 22:22 Total Bilirubin 0.7 mg/dL (0.2-1.2) 08/23/19 22:22 AST 14 U/L (5-34) 08/23/19 22:22 ALT 9 U/L (8-55) 08/23/19 22:22 Alkaline Phosphatase 120 U/L (40-110) H 08/23/19 22:22 CK-MB (CK-2) 3.1 ng/mL (0-6.6) 08/23/19 22:22 B-Natriuretic Peptide 110.6 pg/mL (0-100) H 08/23/19 22:22 Serum Total Protein 7.4 g/dL (5.8-8.1) 08/23/19 22:22 Albumin 4.0 g/dL (3.4-4.8) 08/23/19 22:22 Lipase 91 U/L (8-78) H 08/23/19 22:22 - EKG Interpretation EKG: QTc 611, sinus - Radiology Interpretation CT scan - head Status: report reviewed by me (No acute intracranial abnormality; mild right supraorbital scalp soft tissue hematoma) Chest x-ray Status: report reviewed by me (No acute cardiopulmonary process) FMR H&P: A/P - Problem List (1) CAD (coronary artery disease) Current Visit: Yes Status: Chronic Code(s): I25.10 - ATHSCL HEART DISEASE OF [place] CORONARY ARTERY W/O ANG PCTRS (2) Hypokalemia Current Visit: Yes Status: Acute Code(s): E87.6 - HYPOKALEMIA (3) Hypomagnesemia Current Visit: Yes Status: Acute Code(s): E83.42 - HYPOMAGNESEMIA (4) Prolonged QT interval Current Visit: Yes Status: Acute Code(s): R94.31 - ABNORMAL ELECTROCARDIOGRAM [ECG] [EKG] (5) Recurrent falls Current Visit: Yes Status: Chronic Code(s): R29.6 - REPEATED FALLS (6) Anemia Current Visit: Yes Status: Acute Code(s): D64.9 - ANEMIA, UNSPECIFIED (7) Elevated troponin Current Visit: Yes Status: Acute Code(s): R79.89 - OTHER SPECIFIED ABNORMAL FINDINGS OF BLOOD CHEMISTRY (8) URIAH (acute kidney injury) Current Visit: No Status: Acute Code(s): N17.9 - ACUTE KIDNEY FAILURE, UNSPECIFIED (9) DM type 2 (diabetes mellitus, type 2) Current Visit: No Status: Chronic Qualifiers: Diabetes mellitus complication status: with neurologic complications - Plan Patient is a 64M with PMHx of CAD and DM2 that is being admitted for recurrent falls, prolonged QTc, and electrolyte abnormalities. #Recurrent falls #Prolonged QTc #Syncope -Patient has been having recurrent falls x 3 today -CT head negative for acute intracranial process -possibly due to prolonged QTc, which may be due to electrolyte abnormalities -will hold any QTc prolonging medications/replete electrolytes and continue to monitor EKGs -fall precautions -monitoring on telemetry -will consult cardiology in am #Hypokalemia -Potassium 2.3 -will hold home prn insulin and ISS for now -will continue to monitor and replete as necessary #Hypomagnesemia -Mag 1.4 -is supposed to be on magnesium oxide at home but reports that he doesn't often take it because "the pills are too big" -will continue to monitor and replete as necessary #Elevated troponin -trop 0.048 -patient denies cp at this time -no ST elevation on EKG -will continue to trend #URIAH vs CKD -Creatinine 2.08, GFR 32 -will give IVF and continue to monitor #Microcytic Anemia -iron studies pending #DM2 -will continue home glyperide -hold home metformin for now for URIAH -hold home prn insulin for now for hypokalemia #CAD -continue home meds DVT ppx: SCDs Diet: HH Dispo: inpatient for electrolyte monitoring and repletion, monitoring on telemetry, monitoring of QTc Code: DNR PCP: CC FMR H&P: Upper Level - Pertinent history 64 yo M w/hx of orthostatic hypotension, CAD, and DM2 here with complaint of falling 3x today at home. He also fell 5 days ago which resulted in a lac over his R eye which required repair. He has a hx of orthostatic hypotension for which he takes fludrocortisone daily. He does not remember any of the falls today and his son, who witnessed them, was not available at the time of the H& P. In the ER he was noted to have a K of 2.3 and a Mg of 1.4. On EKG his QTc was over 600, previous EKG in Jun was 453. Other significant labs included trop of 0.048 and Cr of 2.08 PMHx CAD s/p multiple stents Orthostatic HTN HFpEF DM2 HTN HLD MDD Surgical hx Cardiac cath with stenting Social Hx Former heavy etoh, tobacco, and multi drug use. Has abstained for more than 10 years - Pertinent findings See dietary internship note for full ROS, PE, vitals, and labs ROS General denies fever or chills CV Complains of syncope. Denies CP, palpitation, or peripheral edema Resp Complains of coughing up blood. Denies SOB GI denies n/v/d/c or abdominal pain denies increased frequency or dysuria Neuro denies numbness or weakness PE General A&O x4, NAD HEENT Healing laceration over R eye s/p suture repair CV RRR, no murmur Resp CTA, no respiratory distress Abd non tender, no distension, normal BS Extremities no edema, equal pedal pulses Neuro no focal deficits, CN II-XII intact - Plan Date/Time: 08/24/19 0004 I, Jose Antonio Ornelas, DO, have evaluated this patient and agree with findings/plan as outlined by dietary internship resident. Pertinent changes/additions are listed here. 1.Hypokalemia - Got 100 mEq in the ED, will recheck BMP at 0300 -Hold home Lasix 2.Hypomagnesemia -Replace IV, recheck BMP at 0300 3.Syncope -Admit to tele, most likely this is related to the chronic orthostatic hypotension -Restart home meds. Patient may need to be started on higher dose or have another agent added -Will trend trop, nothing on EKG suggestive of ACS 4.Long QT Tele as above. Will avoid QT prolonging agents -Consider cards consult 5.URIAH vs CKD -IVF, recheck BMP as above 6.DM2 -Restart home meds other than insulin. Will start insulin when K recovers. PPx SCD Diet HH, low carb Code DNAR Dispo: pt is currently in good condition. Would expect 2-3 days of hospitalization correcting electrolytes and monitoring heart rhythm Addendum - Attending - Attending Attestation Date/Time: 08/24/19 1324 I personally evaluated the patient at 0730 am and discussed the management with Dr. Dale/Ceci. H&P repeated by me. I agree with the History, Examination, Assessment and Plan documented above with any addition or exceptions noted below. Patient unsure whether he fell or passed out. He told night team he passed out but states he didn't loose consciousness for me. VSS: + orthostatic hypotension CV: normal s1/s2 no m lungs: ctab Ext: no c/c, tr edema Labs and imaging reviewed. EKG with QTc of 611. 1)Syncope vs fall- probably from orthostasis- he is on fludrocortisone already. Will continue 2) severe hypok- replace 3) hypomag- replace 4) prolonged qtc- hold meds that prolong qtc and replace lytes. Repeat EKG- if qtc does not resolve with electrolyte repletion then consider cards consult. 5) URIAH on CKD- Cr improved with some fluids Patient has a neurologist and boatswain mate in [place] and a PCP in [place].
[2019-08-24] MEDS ORDERED: Dextrose 5% in Water 1,000 ML IV PRN ×2 (00:07→12:54)
[2019-08-24] MEDS ORDERED: Dextrose 50% Abboject 50 ML SYRINGE SLOW IVP PRN (00:07)
[2019-08-24] MEDS ORDERED: Calcium Carbonate 500 MG ChewTAB PO PRN (01:03)
[2019-08-24] MEDS ORDERED: Acetaminophen 325 MG TAB PO PRN (01:03)
[2019-08-24] MEDS: 1/2 NS w/KCL 20 mEq 1,000 ML IV SCH ×2 (01:53→09:19)
[2019-08-24 02:07] VITALS: BMI 32.4
[2019-08-24 02:08] LABS: #Eosinphils 0.4 thou/uL (0.0-0.7); #Lymphocytes 0.7 thou/uL (1.20-3.40); #Monocytes 0.5 thou/uL (0.11-0.59); #Neutrophils 3.4 thou/uL (1.40-6.50); %Basophils 0.7 % (0.0-1.0); %Eosinophils 8.8 % (0.0-10.0); %Lymphocytes 13.5 % (21.0-51.0); %Monocytes 9.1 % (0.0-10.0); %Neutrophils 67.8 % (42.0-75.0); Hemoglobin 9.6 g/dL (14.0-18.0); Mean Corpuscular HGB CONC 34.4 g/dL (32.0-36.0); Mean Corpuscular Volume 78.6 fL (78.0-98.0); Mean Platelet Volume 8.6 fL (7.4-10.4); Platelet Count 209 thou/uL (130-400); RBC Distribution Width 12.8 % (11.5-14.5); Red Blood Cell (RBC) Count 3.57 mill/uL (4.70-6.10); White Blood Cell (WBC) Count 4.9 thou/uL (4.8-10.8)
[2019-08-24] MEDS ORDERED: Acetaminophen 500 MG TAB PO PRN (02:16)
[2019-08-24 02:28] LABS: Troponin I 0.054 ng/mL (< 0.028)
[2019-08-24 02:31] LABS: Anion Gap 19 mmol/L (10-20); BUN (Urea Nitrogen) 21 mg/dL (8.4-25.7); Calc. Creatinine Clearance 52 mL/min (70-130); Calcium 8.3 mg/dL (7.8-10.44); Carbon Dioxide 29 mmol/L (23-31); Chloride 90 mmol/L (98-107); Estimated GFR-MDRD 37; Glucose 205 mg/dL (80-115); Magnesium 2.4 mg/dL (1.6-2.6); Sodium 135 mmol/L (136-145)
[2019-08-24 02:35] LABS: Potassium 2.6 mmol/L (3.5-5.1)
[2019-08-24] MEDS ORDERED: Potassium Chloride 20 MEQ TAB PO SCH ×3 (02:45→03:00)
[2019-08-24] MEDS ORDERED: Potassium Chloride 40 MEQ in Sodium Chloride 0.9% 250 ML 250 ML IVPB SCH (03:30)
[2019-08-24 05:32] LABS: Iron 40 ug/dL (65-175); Iron Binding Capacity, Total 336 mcg/dL (261-462); Transferrin, Serum 269 mg/dL (163-344)
[2019-08-24 05:37] LABS: Troponin I 0.042 ng/mL (< 0.028)
[2019-08-24] MEDS ORDERED: Potassium Chloride 10 MEQ TAB PO SCH (09:00)
[2019-08-24] MEDS: glyBURIDE 5 MG TAB PO SCH ×2 (09:19→17:33)
[2019-08-24] MEDS: Aspirin 81 mg Enteric Coated Tablet PO SCH (09:20)
[2019-08-24] MEDS: Gabapentin 300 MG CAP PO SCH ×2 (09:20→20:56)
[2019-08-24] MEDS: Fludrocortisone Acetate 0.1 MG TAB PO SCH (09:20)
[2019-08-24] MEDS: Ferrous Sulfate 325 MG TAB PO SCH (09:20)
[2019-08-24] MEDS: Magnesium Oxide 400 MG TAB PO SCH (09:20)
[2019-08-24] MEDS: Rosuvastatin 20 MG TAB PO SCH (09:20)
[2019-08-24] MEDS: DULoxetine 30 MG CAP PO SCH (09:20)
[2019-08-24] MEDS: TICAGRELOR 90 MG TABLET PO SCH ×2 (09:21→20:56)
[2019-08-24 12:34] LABS: Anion Gap 19 mmol/L (10-20); BUN (Urea Nitrogen) 19 mg/dL (8.4-25.7); Calc. Creatinine Clearance 54 mL/min (70-130); Calcium 8.6 mg/dL (7.8-10.44); Carbon Dioxide 19 mmol/L (23-31); Chloride 96 mmol/L (98-107); Estimated GFR-MDRD 38; Glucose 302 mg/dL (80-115); Potassium 4.3 mmol/L (3.5-5.1); Sodium 130 mmol/L (136-145)
[2019-08-24] MEDS: Potassium Chloride 20 MEQ in Lactated Ringer's 1,000 ML IV SCH ×2 (13:23→21:02)
[2019-08-24] MEDS: HumaLOG 300 UNITS/3 ML VIAL SC PRN ×2 (13:26→17:34)
[2019-08-24 13:45] LABS: Calcium 8.2 mg/dL (7.8-10.44); Chloride 96 mmol/L (98-107); Potassium 4.1 mmol/L (3.5-5.1); Sodium 130 mmol/L (136-145)
[2019-08-24 13:52] LABS: Anion Gap 18 mmol/L (10-20); BUN (Urea Nitrogen) 19 mg/dL (8.4-25.7); Calc. Creatinine Clearance 57 mL/min (70-130); Carbon Dioxide 21 mmol/L (23-31); Estimated GFR-MDRD 40; Glucose 316 mg/dL (80-115)
[2019-08-25 05:06] LABS: Anion Gap 14 mmol/L (10-20); BUN (Urea Nitrogen) 15 mg/dL (8.4-25.7); Calc. Creatinine Clearance 61 mL/min (70-130); Calcium 8.3 mg/dL (7.8-10.44); Carbon Dioxide 24 mmol/L (23-31); Chloride 100 mmol/L (98-107); Estimated GFR-MDRD 44; Glucose 243 mg/dL (80-115); Sodium 135 mmol/L (136-145)
[2019-08-25 05:10] LABS: Potassium 2.8 mmol/L (3.5-5.1)
[2019-08-25] MEDS: Potassium Chloride 20 MEQ in Lactated Ringer's 1,000 ML IV SCH ×2 (05:10→16:54)
--- NOTE | 2019-08-25 05:34 | PDOC.FM ---
- Subjective Subjective: Doing well this morning. Would like to go home. No overnight events. Denies n/v , sob, weakness. - Objective MAR Reviewed: Yes Vital Signs & Weight: Vital Signs (12 hours) Temp Pulse Resp BP Pulse Ox 08/25/19 04:00 98.4 F 80 18 131/63 96 08/24/19 20:00 98.3 F 86 18 125/58 L 99 Weight Weight 91.172 kg I&O: 08/23/19 08/24/19 08/25/19 06:59 06:59 06:59 Output Total 1100 Balance -1100 Result Diagrams: 08/24/19 02:02 08/25/19 04:14 Phys Exam - Physical Examination Constitutional: NAD HEENT: moist MMs Neck: supple Respiratory: no wheezing, clear to auscultation bilateral Cardiovascular: RRR, no significant murmur Gastrointestinal: soft, non-tender Musculoskeletal: edema present (nonpitting) Neurological: moves all 4 limbs Psychiatric: normal affect, A&O x 3 Deviation from normal: scarring on legs and b/l arms from abscess due to hx of IV drug abuse Dx/Plan - Plan Plan: 64yo male with pmh of CAD, DM2 admitted for recurrent falls, prolonged QTc, and electrolyte abnormalities. Syncope - CT head negative for acute intracranial process - possibly due to prolonged QTc, which may be due to electrolyte abnormalities Prolonged QTc - Hold any QTc prolonging meds/replace electrolytes and continue to monitor EKGs - EKG pending this AM Recurrent falls - Likely related to orthostatic hypotension, orthostatic VS positive - Fall precautions Hypokalemia - Hold home insulin - 2.8 this AM - Will increase oral dose and replace with IV in addition Hypomagnesemia - Supposed to be on Mg oxide but has not been taking. - Continue to replace NSTEMI Type 2 - Troponins elevated but stable, no ST segment changes. Pt chest pain free URIAH, improving - Creatinine 2.08-> 1.6 Microcytic Anemia DM2 - Continue home glyperide - hold home metformin for now for URIAH - hold home prn insulin for now for hypokalemia CAD - Continue home meds DVT ppx: SCDs Code: DNR Addendum - Attending - Attending Attestation Date/Time: 08/25/19 [id number] I personally evaluated the patient and discussed the management with Dr. Garcia. I agree with the History, Examination, Assessment and Plan documented above with any addition or exceptions noted below. Patient stable. Consult PT. His potassium continues to decline. We will continue to replete, and will hold Fludricortisone as he was only on it for orthostasis. He will start on Midodrine. Continue to monitor. Awaiting outside records for Echo. No history of adrenal insufficiency per the provider who rx' d the steroids.
[2019-08-25] MEDS: Potassium Chloride 20 MEQ in Premix Bag 1 BAG IVPB SCH ×2 (06:10→08:52)
[2019-08-25] MEDS: glyBURIDE 5 MG TAB PO SCH ×2 (08:47→16:54)
[2019-08-25] MEDS: Gabapentin 300 MG CAP PO SCH ×2 (08:47→20:35)
[2019-08-25] MEDS: DULoxetine 30 MG CAP PO SCH (08:47)
[2019-08-25] MEDS: Rosuvastatin 20 MG TAB PO SCH (08:47)
[2019-08-25] MEDS: Ferrous Sulfate 325 MG TAB PO SCH (08:47)
[2019-08-25] MEDS: Potassium Chloride 20 MEQ TAB PO SCH ×2 (08:48→16:54)
[2019-08-25] MEDS: Aspirin 81 mg Enteric Coated Tablet PO SCH (08:48)
[2019-08-25] MEDS: Magnesium Oxide 400 MG TAB PO SCH (08:48)
[2019-08-25] MEDS: TICAGRELOR 90 MG TABLET PO SCH ×2 (08:48→20:36)
[2019-08-25] MEDS: Fludrocortisone Acetate 0.1 MG TAB PO SCH (08:49)
[2019-08-25] MEDS: HumaLOG 300 UNITS/3 ML VIAL SC PRN ×3 (08:49→16:58)
[2019-08-25 12:42] LABS: Anion Gap 12 mmol/L (10-20); BUN (Urea Nitrogen) 13 mg/dL (8.4-25.7); Calc. Creatinine Clearance 65 mL/min (70-130); Calcium 8.4 mg/dL (7.8-10.44); Carbon Dioxide 25 mmol/L (23-31); Chloride 100 mmol/L (98-107); Estimated GFR-MDRD 47; Glucose 256 mg/dL (80-115); Potassium 3.6 mmol/L (3.5-5.1); Sodium 133 mmol/L (136-145)
[2019-08-25] MEDS: Midodrine HCl 5 MG TAB PO SCH ×2 (14:45→20:36)
--- NOTE | 2019-08-25 19:05 | EKG ---
Test Reason : Blood Pressure : / mmHG Vent. Rate : 096 BPM Atrial Rate : 096 BPM P-R Int : 222 ms QRS Dur : 116 ms QT Int : 384 ms P-R-T Axes : 091 074 169 degrees QTc Int : 485 ms Sinus rhythm with 1st degree A-V block Cannot rule out Anterior infarct , age undetermined Abnormal ECG Confirmed by DR. Estella BLACKWOOD MD ([id number]) on 08/25/2019 7:05:04 PM Referred By: DAVIS Confirmed By:DR. Estella BLACKWOOD MD
--- NOTE | 2019-08-25 23:29 | EKG ---
Test Reason : Blood Pressure : / mmHG Vent. Rate : 085 BPM Atrial Rate : 085 BPM P-R Int : 000 ms QRS Dur : 108 ms QT Int : 408 ms P-R-T Axes : 059 052 096 degrees QTc Int : 485 ms Sinus rhythm with 1st degree A-V block Possible Inferior infarct (cited on or before 03-NOV-2014) Cannot rule out Anterior infarct (cited on or before 03-NOV-2014) Abnormal ECG When compared with ECG of 23-AUG-2019 21:32, (Unconfirmed) Sinus rhythm has replaced Junctional rhythm T wave inversion no longer evident in Inferior leads QT has shortened Confirmed by Benjamin COLLADO ([id number]) on 08/25/2019 11:29:27 PM Referred By: Gina Galvinr Confirmed By:Benjamin COLLADO
[2019-08-26] MEDS: Potassium Chloride 20 MEQ in Lactated Ringer's 1,000 ML IV SCH ×2 (00:33→09:50)
--- NOTE | 2019-08-26 06:22 | PDOC.FM ---
- Subjective Subjective: Feeling well this morning. Has been walking to and from the bathroom, no dizziness or symptoms of orthostasis since admission. Denies SOB, chest pain, edema. - Objective MAR Reviewed: Yes Vital Signs & Weight: Vital Signs (12 hours) Temp Pulse Resp BP Pulse Ox 08/26/19 04:00 98.4 F 90 18 136/67 91 L 08/25/19 20:00 98 F 88 18 144/68 H 99 Weight Weight 91.172 kg I&O: 08/24/19 08/25/19 08/26/19 06:59 06:59 06:59 Intake Total 4634 Output Total 1100 3175 Balance -1100 1459 Result Diagrams: 08/24/19 02:02 08/26/19 07:30 Phys Exam - Physical Examination Constitutional: NAD HEENT: moist MMs Neck: supple Respiratory: no wheezing, clear to auscultation bilateral Cardiovascular: RRR, no significant murmur Gastrointestinal: soft Neurological: moves all 4 limbs Psychiatric: normal affect, A&O x 3 Skin: normal turgor Dx/Plan - Plan Plan: 64yo male with pmh of CAD, DM2 admitted for recurrent falls, prolonged QTc, and electrolyte abnormalities. Syncope 2/2 likely orthostatic hypotension - CT head negative for acute intracranial process - Stopped Fludrocortisone start Midodrine TID which pt had been using PRN Recurrent falls - Likely related to orthostatic hypotension, orthostatic VS positive - Fall precautions - PT/OT consulted. Hypokalemia, resolved - Restart home insulin, stopped fludrocortisone Hypomagnesemia, resolved - Continue Mg Oxide Prolonged QTc, resolved - Hold any QTc prolonging meds/replace electrolytes and continue to monitor EKGs Depression - Continue Cymbalta - Pt interested in outpt counseling and medicine adjustment NSTEMI Type 2 - Troponins elevated but stable, no ST segment changes. Pt chest pain free URIAH, improving - Creatinine 2.08-> 1.3 - Restart home Metformin Microcytic Anemia DM2 - Continue home glyperide - Restart insulin and metformin CAD - Continue home meds DVT ppx: SCDs Code: DNR Addendum - Attending - Attending Attestation Date/Time: 08/26/19 3972 I personally evaluated the patient and discussed the management with Dr. Garcia. I agree with the History, Examination, Assessment and Plan documented above with any addition or exceptions noted below. Patient improved. Electrolytes improved off Fludricortisone. Currently doing well on Midodrine. PT has evaluated patient, awaiting recs for placement. Needs close monitoring of potassium in outpatient setting, which he may transition to later today.
[2019-08-26 08:01] LABS: Anion Gap 13 mmol/L (10-20); BUN (Urea Nitrogen) 11 mg/dL (8.4-25.7); Calc. Creatinine Clearance 75 mL/min (70-130); Calcium 8.1 mg/dL (7.8-10.44); Carbon Dioxide 18 mmol/L (23-31); Chloride 106 mmol/L (98-107); Estimated GFR-MDRD 56; Glucose 214 mg/dL (80-115); Potassium 3.7 mmol/L (3.5-5.1); Sodium 133 mmol/L (136-145)
[2019-08-26] MEDS ORDERED: metFORMIN 500 MG TAB PO SCH (09:00)
[2019-08-26] MEDS: DULoxetine 30 MG CAP PO SCH (10:00)
[2019-08-26] MEDS: Rosuvastatin 20 MG TAB PO SCH (10:00)
[2019-08-26] MEDS: Gabapentin 300 MG CAP PO SCH (10:00)
[2019-08-26] MEDS: glyBURIDE 5 MG TAB PO SCH (10:00)
[2019-08-26] MEDS: Aspirin 81 mg Enteric Coated Tablet PO SCH (10:01)
[2019-08-26] MEDS: Midodrine HCl 5 MG TAB PO SCH ×2 (10:01→15:04)
[2019-08-26] MEDS: Potassium Chloride 20 MEQ TAB PO SCH (10:02)
[2019-08-26] MEDS: Magnesium Oxide 400 MG TAB PO SCH (10:02)
[2019-08-26] MEDS: TICAGRELOR 90 MG TABLET PO SCH (10:02)
[2019-08-26] MEDS: Ferrous Sulfate 325 MG TAB PO SCH (10:02)
[2019-08-26 14:14] LABS: Anion Gap 16 mmol/L (10-20); Calc. Creatinine Clearance 79 mL/min (70-130); Calcium 8.6 mg/dL (7.8-10.44); Carbon Dioxide 15 mmol/L (23-31); Chloride 106 mmol/L (98-107); Estimated GFR-MDRD 59; Glucose 277 mg/dL (80-115); Potassium 3.9 mmol/L (3.5-5.1); Sodium 133 mmol/L (136-145)
[2019-08-26 14:17] LABS: BUN (Urea Nitrogen) 12 mg/dL (8.4-25.7)
[2019-08-26 15:56] VITALS: BP 163/80; TEMP 98.6
[2019-08-31] MEDS ORDERED: (Exenatide Microspheres [Bydureon] 2 MG) SQ SCH (09:00)
== END 2019-08-26 16:47 | disposition home or self-care (01) | DRG 281 ==
LOC: ERS 21:15 → 2NO 08-24 00:43
PROVIDERS: ADMIT Family Medicine; ATTEND Family Medicine
DX: I95.1 Orthostatic hypotension (principal); I21.A1 Myocardial infarction type 2; N17.9 Acute kidney failure, unspecified; I50.32 Chronic diastolic (congestive) heart failure; Z66 Do not resuscitate; D50.9 Iron deficiency anemia, unspecified; E11.9 Type 2 diabetes mellitus without complications; E78.5 Hyperlipidemia, unspecified; E83.42 Hypomagnesemia; E87.6 Hypokalemia; I11.0 Hypertensive heart disease with heart failure; I25.10 Atherosclerotic heart disease of native coronary artery without angina pectoris; R29.6 Repeated falls; R94.31 Abnormal electrocardiogram [ECG] [EKG]; Z79.4 Long term (current) use of insulin; Z79.82 Long term (current) use of aspirin; Z79.899 Other long term (current) drug therapy; Z87.891 Personal history of nicotine dependence; Z95.5 Presence of coronary angioplasty implant and graft
CPT/HCPCS: 36415; 36416; 70450; 71045; 80048; 80053; 82553; 82728; 83540; 83550; 83690; 83735; 83880; 84443; 84466; 84484; 85025; 93005; 93010; 96361; 96365; 96368; J3475; J3480; J7050; J7120

== ENCOUNTER 2020-06-08 14:53 | Outpatient (CLI) | payer MEDICARE ==
[~2020-06-08 14:53] MED LIST: Iopamidol-370 76% 500 ML 1 ML ONE
--- NOTE | 2020-06-08 16:58 | CT ---
CT Abdomen Pelvis W Con History: Nausea with vomiting Comparison: None. Findings: Small peripheral nodule right lung base measures 4 mm. No significant pericardial effusion. Nodular contour of the liver indicating cirrhosis. Spleen is markedly enlarged measuring 15 cm in AP dimension. Portal vein is patent. Splenic vein is patent. Minimal perisplenic shunting. No dilated loops of large or small bowel. Appendix is visualized and is normal. No hydronephrosis. Aortoiliac contour is nonaneurysmal. Pancreas is unremarkable on the adrenal glands. No hydronephrosis. No abnormal renal enhancing mass. Celiac trunk and superior mesenteric arteries are patent. Inferior mesenteric artery is patent. No retroperitoneal periaortic adenopathy. Dense vas deferens calcifications. Bilateral pars interarticularis defects of L5 with 2 millimeter anterolisthesis. No acute osseous abn ormality. 4 mm hypodensity hepatic segment 8 near the dome too small fully characterize. There is a smaller per ipheral hypodensity hepatic segment 8 also near the dome too small fully characterize. No abnormal hepatic mass. No intrahepatic or extrahepatic biliary dilatation. Normal proximal small bowel rotation. Impression: 1. No acute inflammatory process within the abdomen or pelvis. 2. Cirrhosis with splenomegaly and sequelae of early portal hypertension including splenomegaly and s mall esophageal and gastric varices. 3. 4 mm pulmonary peripheral nodule right lung base. In a high-risk patient, follow-up CT of the ches t in 12 months would be recommended.
== END 2020-06-08 14:54 | disposition home or self-care (01) ==
LOC: BICCT 14:53
PROVIDERS: ATTEND Internal Medicine Gastroenterology
DX: D64.9 Anemia, unspecified (principal); R11.2 Nausea with vomiting, unspecified; R10.9 Unspecified abdominal pain; R16.1 Splenomegaly, not elsewhere classified; R91.1 Solitary pulmonary nodule; K76.6 Portal hypertension; I85.10 Secondary esophageal varices without bleeding; I86.4 Gastric varices; K74.60 Unspecified cirrhosis of liver
CPT/HCPCS: 74177; 82565; Q9967

== ENCOUNTER 2020-07-02 11:23 | Day surgery (SDC) | payer MEDICARE ==
[2020-07-02] MEDS ORDERED: Acetaminophen 325 MG TAB PO PRN (12:15)
[2020-07-02 12:27] LABS: Hemoglobin A1c 5.1 % (4.0-6.0)
[2020-07-02 17:13] VITALS: BP 114/62; TEMP 98.3
== END 2020-07-02 17:18 | disposition home or self-care (01) ==
LOC: ONC/OP 11:23
PROVIDERS: ATTEND Internal Medicine Gastroenterology
PROC: 30233N1 Transfusion of Nonautologous Red Blood Cells into Peripheral Vein, Percutaneous Approach (ICD-10-PCS; principal; 2020-07-02)
DX: D50.9 Iron deficiency anemia, unspecified (principal)
CPT/HCPCS: 36430; 83036; 86850; 86900; 86901; P9016

== ENCOUNTER 2020-08-17 10:59 | Inpatient (IN) | payer MEDICARE ==
--- NOTE | 2020-08-17 11:36 | RAD ---
XR Chest 1 View Portable History: Edema Comparison: Radiograph July 2019 Findings: Heart size upper limits of normal. No confluent airspace consolidation, pneumothorax or eff usion. No acute osseous abnormality. Impression: Lung hypoinflation. No evidence for pulmonary edema.
[2020-08-17 12:04] LABS: #Lymphocytes 0.4 thou/uL (1.20-3.40); #Monocytes 0.5 thou/uL (0.11-0.59); #Neutrophils 5.7 thou/uL (1.40-6.50); %Basophils 0.2 % (0.0-1.0); %Eosinophils 0.5 % (0.0-10.0); %Lymphocytes 5.7 % (21.0-51.0); %Monocytes 6.9 % (0.0-10.0); %Neutrophils 86.7 % (42.0-75.0); Hemoglobin 7.7 g/dL (14.0-18.0); Mean Corpuscular HGB CONC 29.6 g/dL (32.0-36.0); Mean Corpuscular Hemoglobin 21.5 pg (27.0-31.0); Mean Corpuscular Volume 72.6 fL (78.0-98.0); Platelet Count 314 thou/uL (130-400); RBC Distribution Width 19.4 % (11.5-14.5); White Blood Cell (WBC) Count 6.5 thou/uL (4.8-10.8)
[2020-08-17 12:09] LABS: ALT (SGPT) 7 U/L (8-55); AST (SGOT) 14 U/L (5-34); Albumin 3.7 g/dL (3.4-4.8); Alkaline Phosphatase 82 U/L (40-110); Anion Gap 22 mmol/L (10-20); BUN (Urea Nitrogen) 17 mg/dL (8.4-25.7); Bilirubin, Total 1.1 mg/dL (0.2-1.2); CK (CPK) 38 U/L (30-200); Calc. Creatinine Clearance 0 mL/min (70-130); Calcium 8.3 mg/dL (7.8-10.44); Carbon Dioxide 20 mmol/L (23-31); Chloride 98 mmol/L (98-107); Globulin 2.7 g/dL (2.4-3.5); Glucose 61 mg/dL (80-115); Potassium 3.1 mmol/L (3.5-5.1); Protein, Total 6.4 g/dL (5.8-8.1); Sodium 137 mmol/L (136-145)
[2020-08-17 12:14] LABS: Hypochromia MODERATE=16-30 cells (100X) (0-5/hpf); MDiff Complete? YES; Microcytosis MODERATE=15-30 cells (100X) (0-5/hpf); Ovalocytes SLIGHT = 2-5 cells (100X) (0-1/hpf); Platelet Morphology Comment Appears Adequate; Polychromasia SLIGHT = 2-3 cells (100X) (0-2/hpf)
[2020-08-17 12:32] LABS: CKMB 2.4 ng/mL (0-6.6)
[2020-08-17 15:27] LABS: Troponin I 0.127 ng/mL (< 0.028)
[2020-08-17] MEDS ORDERED: HumaLOG 300 UNITS/3 ML VIAL SC PRN (15:46)
[2020-08-17] MEDS ORDERED: Acetaminophen 325 MG TAB PO PRN (15:46)
[2020-08-17] MEDS ORDERED: Dextrose 5% in Water 1,000 ML IV PRN (15:46)
[2020-08-17] MEDS ORDERED: Dextrose 50% Abboject 50 ML SYRINGE SLOW IVP PRN (15:46)
[2020-08-17] MEDS ORDERED: Bisacodyl 10 MG SUPP PR PRN (15:46)
[2020-08-17] MEDS ORDERED: Senokot S 8.6-50 MG TAB PO PRN (15:46)
[2020-08-17] MEDS ORDERED: Guaifenesin DM 100-10/5 ML UDCUP PO PRN (15:46)
[2020-08-17] MEDS ORDERED: Calcium Carbonate 500 MG ChewTAB PO PRN (15:46)
--- NOTE | 2020-08-17 16:16 | HP ---
REASON FOR ADMISSION: CHF exacerbation with diastolic dysfunction. HISTORY OF PRESENTING ILLNESS: The patient gives history of having progressive lower extremity swelling with shortness of breath. This has been ongoing for at least a month or so. Please note, the patient is very poor historian. When asked more about his presenting complaints, he gets uneasy. He states "he has fluid in his lungs and his legs and you know how to treat". It is unclear if he is compliant with diet and medications. No history of COVID exposure per patient. PAST MEDICAL AND SURGICAL HISTORY: The patient has had recent upper endoscopy and colonoscopy done in May of 2020 which showed tubular adenomas and upper endoscopy was unremarkable. Prior echo in June of 2018 showed ejection fraction of 50% to 55%, coronary artery disease, diabetes mellitus type 2, has had a stent in his right leg, diabetes mellitus type 2, hypertension, GERD, prior history of systolic dysfunction in the past with EF of around 35%, history of buccal abscess with incision and drainage. PERSONAL HISTORY: Quit smoking 30 years ago. Currently does not abuse drugs or alcohol. He has prior history of drug abuse. FAMILY HISTORY: Father has had history of arrhythmia, unknown type. Maternal grandfather had an MD. Maternal grandmother had heart failure. CODE STATUS: Full. CURRENT MEDICATIONS: Please note the patient is a poor historian and does not recall any of his medication. Per prior records from 2017, the patient is on, 1. Brilinta 90 mg twice daily. 2. once weekly. 3. Co-Q10 100 mg daily. 4. Crestor 20 mg daily. 5. Cymbalta 30 mg daily. 6. Aspirin 81 mg daily. 7. Gabapentin 600 mg twice daily. 8. Glyburide 10 mg twice daily. 9. Iron 65 mg daily. 10. Magnesium oxide 400 mg daily. 11. Metformin 1000 mg twice daily. 12. NovoLog sliding scale. 13. K-Dur 20 mEq twice daily. 14. Midodrine 2.5 mg 3 times daily. 15. Protonix 40 mg daily. ALLERGIES: NO KNOWN DRUG ALLERGIES. REVIEW OF SYSTEMS: CONSTITUTIONAL: Negative for weight loss or gain, ability to conduct usual activities. SKIN: Negative for rash, itching. EYES: Negative for double vision, pain. ENT/MOUTH: Negative for nose bleeding, neck stiffness, pain, tenderness. CARDIOVASCULAR: Negative for palpitations, dyspnea on exertion, orthopnea. RESPIRATORY: Negative for shortness of breath, wheezing, cough, hemoptysis, fever or night sweats. GASTROINTESTINAL: Negative for poor appetite, abdominal pain, heartburn, nausea, vomiting, constipation, or diarrhea. GENITOURINARY: Negative for urgency, frequency, dysuria, nocturia. MUSCULOSKELETAL: Negative for pain, swelling. NEUROLOGIC/PSYCHIATRIC: Negative for anxiety, depression. ALLERGY/IMMUNOLOGIC: Negative for skin rash, bleeding tendency. PHYSICAL EXAMINATION: GENERAL: The patient is a 65-year-old male, who is currently not in any acute distress. VITAL SIGNS: Blood pressure 96/50, pulse 94 per minute, respiratory rate 18 per minute, temperature 98.1 degrees Fahrenheit, and saturating 100% on room air. NECK: Supple. There is elevated JVD. HEENT: Eyes; extraocular muscles intact. Pupils reacting to light. Oral cavity, mucous membranes are dry. No exudates or congestion. CARDIOVASCULAR SYSTEM: S1, S2 heard. Regular rhythm. RESPIRATORY system: Air entry 1+ bilateral. There is infrascapular area rales plus bilateral. ABDOMEN: Soft. Bowel sounds heard. No tenderness, rigidity, or guarding. EXTREMITIES: There is 2+ peripheral edema. No calf tenderness. VASCULAR SYSTEM: Peripheral pulses 1+ bilateral. No ischemic ulcers or gangrene. CENTRAL NERVOUS SYSTEM: No gross focal motor deficits noted. The patient is alert, awake, and oriented well. PSYCHIATRIC SYSTEM: No obvious hallucinations or delusions. LABORATORY DATA: White count of 6, H and H 7.7 and 26, platelet count 314, MCV 72 with 86% neutrophils. Potassium 3.1, serum bicarb 20, BUN 17, creatinine 1.5, serum glucose 61. LFTs are within normal limits. BNP is 2277. Troponin I 0.08, 1st set, 2nd set is 0.12. Albumin is 3.7. DIAGNOSTIC STUDIES: Stat chest x-ray done shows cardiomegaly. Stool guaiac is negative. CLINICAL IMPRESSION AND PLAN: The patient will be admitted to telemetry for acute on chronic congestive heart failure exacerbation. We will place him on IV Lasix for gentle diuresis. We will continue his other medications as before including aspirin, gabapentin, midodrine, Crestor, Co-Q10, glyburide, metformin, and magnesium oxide. We will continue to closely monitor him on telemetry. I did ask him about code status and he says he does not want to be resuscitated. When asked to confirm the same, he gets irritable. We will revisit this in the morning. Job ID: [id number] [id number]
[2020-08-17] MEDS ORDERED: glyBURIDE 5 MG TAB PO SCH (17:00)
[2020-08-17] MEDS ORDERED: metFORMIN 500 MG TAB PO SCH (17:00)
[2020-08-17] MEDS: Midodrine HCl 5 MG TAB PO SCH (21:23)
[2020-08-17] MEDS: Gabapentin 300 MG CAP PO SCH (21:23)
[2020-08-17] MEDS: Rosuvastatin 20 MG TAB PO SCH (21:43)
[2020-08-18 04:15] VITALS: BMI 29.2
[2020-08-18 05:11] LABS: ALT (SGPT) Less than 7 U/L (8-55); AST (SGOT) 14 U/L (5-34); Albumin 3.3 g/dL (3.4-4.8); Alkaline Phosphatase 72 U/L (40-110); Anion Gap 18 mmol/L (10-20); BUN (Urea Nitrogen) 14 mg/dL (8.4-25.7); Bilirubin, Total 0.8 mg/dL (0.2-1.2); Calc. Creatinine Clearance 72 mL/min (70-130); Carbon Dioxide 19 mmol/L (23-31); Chloride 103 mmol/L (98-107); Globulin 2.6 g/dL (2.4-3.5); Protein, Total 5.9 g/dL (5.8-8.1); Sodium 137 mmol/L (136-145)
[2020-08-18 05:15] LABS: Glucose 36 mg/dL (80-115); Potassium 2.8 mmol/L (3.5-5.1)
[2020-08-18] MEDS ORDERED: Electrolyte Replacement Protocol 1 EACH FS SCH (05:45)
[2020-08-18 06:31] LABS: Anisocytosis SLIGHT = 6-15 cells (100X) (0-5/hpf); Band 5 % (5-11); Hemoglobin 7.9 g/dL (14.0-18.0); Hypochromia MODERATE=16-30 cells (100X) (0-5/hpf); Lymphocytes 5 % (21-51); MDiff Complete? YES; Mean Corpuscular HGB CONC 29.2 g/dL (32.0-36.0); Mean Corpuscular Hemoglobin 21.4 pg (27.0-31.0); Mean Corpuscular Volume 73.3 fL (78.0-98.0); Mean Platelet Volume 10.4 fL (7.4-10.4); Microcytosis SLIGHT = 6-15 cells (100X) (0-5/hpf); Monocytes 10 % (0-10); Neutrophil 80 % (42-75); Platelet Count 309 thou/uL (130-400); RBC Distribution Width 19.3 % (11.5-14.5); Red Blood Cell (RBC) Count 3.69 mill/uL (4.70-6.10); Target Cells SLIGHT = 2-5 cells (100X) (0-1/hpf); Tear Drops SLIGHT = 2-5 cells (100X) (0-1/hpf)
[2020-08-18] MEDS: Potassium Chloride 20 MEQ TAB PO SCH ×2 (07:16→12:30)
[2020-08-18] MEDS: Furosemide 40 MG/4 ML VIAL SLOW IVP SCH ×2 (08:00→15:49)
[2020-08-18] MEDS: Gabapentin 300 MG CAP PO SCH ×2 (10:02→20:54)
[2020-08-18] MEDS: Midodrine HCl 5 MG TAB PO SCH ×3 (10:02→20:55)
[2020-08-18] MEDS: Dextrose 5% in Water 1,000 ML IV SCH ×2 (10:02→11:31)
[2020-08-18] MEDS: DULoxetine 30 MG CAP PO SCH (10:04)
[2020-08-18] MEDS: Enoxaparin Sodium 30 MG/0.3 ML SYRINGE SC SCH (10:04)
[2020-08-18] MEDS: Magnesium Oxide 400 MG TAB PO SCH (10:04)
[2020-08-18] MEDS: Ferrous Sulfate 325 MG TAB PO SCH (10:04)
[2020-08-18] MEDS: Ubidecarenone 50 MG CAP PO SCH (10:04)
[2020-08-18] MEDS: Aspirin Chewable 81 MG TAB PO SCH (10:04)
[2020-08-18] MEDS: Magnesium 2 GM/50 ML 2 GM in Premix Bag 1 BAG IVPB SCH ×3 (10:05→15:04)
[2020-08-18] MEDS: HumaLOG 300 UNITS/3 ML VIAL SC PRN ×2 (12:30→17:56)
--- NOTE | 2020-08-18 14:36 | PDOC.HOSPP ---
- Subjective Encounter Date: 08/18/20 Subjective: Patient reports he is feeling fine now. He has no complaints. Says his blood sugars have been getting low like this every day in the morning. After he eats breakfast they tend to go high. He says he does have a inspector and sorter in [place]. He says he is on the Brilinta because he has had 2 stents placed in his legs several years ago. - Objective Vital Signs & Weight: Vital Signs (12 hours) Temp Pulse Pulse Pulse Resp BP BP 08/18/20 13:23 99 100 100/52 L 102/55 L 08/18/20 12:08 98.2 F 95 16 08/18/20 08:00 08/18/20 07:00 98.5 F 104 H 16 08/18/20 03:41 97.1 F L 94 16 BP Pulse Ox Pulse Ox Pulse Ox 08/18/20 13:23 100 100 08/18/20 12:08 98/54 L 96 08/18/20 08:00 100 08/18/20 07:00 93/51 L 100 08/18/20 03:41 98/48 L 95 Weight Weight 192 lb 4.8 oz Result Diagrams: 08/18/20 04:27 08/18/20 04:27 Additional Labs: Accuchecks 08/18/20 08/18/20 08/18/20 10:27 06:48 06:13 POC Glucose 247 H 60 L 34 L* Hospitalist ROS - Medication Medications: Active Medications Generic Name Dose Route Start Last Admin Trade Name Freq PRN Reason Stop Dose Admin Aspirin 81 mg 08/18/20 09:00 08/18/20 10:04 Aspirin Chewable 81 Mg Tab PO 81 mg DAILY JOSELIN Administration Coenzyme Q10 100 mg 08/18/20 09:00 08/18/20 10:04 Ubidecarenone 50 Mg Cap PO 100 mg DAILY JOSELIN Administration Dextrose/Water 25 gm 08/17/20 15:46 08/18/20 05:55 Dextrose 50% Abboject 50 Ml Syringe SLOW IVP 25 gm PRN PRN Administration Hypoglycemia Duloxetine HCl 30 mg 08/18/20 09:00 08/18/20 10:04 Duloxetine 30 Mg Cap PO 30 mg DAILY JOSELIN Administration Enoxaparin Sodium 30 mg 08/18/20 09:00 08/18/20 10:04 Enoxaparin Sodium 30 Mg/0.3 Ml Syringe SC 30 mg 0900 JOSELIN Administration Ferrous Sulfate 325 mg 08/18/20 08:00 08/18/20 10:04 Ferrous Sulfate 325 Mg Tab PO 325 mg QAM-WM JOSELIN Administration Furosemide 40 mg 08/18/20 06:00 08/18/20 08:00 Furosemide 40 Mg/4 Ml Vial SLOW IVP Not Given 0600,1400 JOSELIN Gabapentin 600 mg 08/17/20 21:00 08/18/20 10:02 Gabapentin 300 Mg Cap PO 600 mg BID JOSELIN Administration Insulin Human Lispro 0 units 08/17/20 15:46 08/18/20 12:30 Humalog 300 Units/3 Ml Vial SC 4 unit .MODERATE SLIDING SC PRN Administration Moderate Correctional Scale Magnesium Oxide 400 mg 08/18/20 09:00 08/18/20 10:04 Magnesium Oxide 400 Mg Tab PO 400 mg DAILY JOSELIN Administration Midodrine 2.5 mg 08/17/20 21:00 08/18/20 10:02 Midodrine Hcl 5 Mg Tab PO 2.5 mg TID JOSELIN Administration Pantoprazole Sodium 40 mg 08/18/20 09:00 08/18/20 10:04 Pantoprazole 40 Mg Tab PO 40 mg DAILY JOSELIN Administration Rosuvastatin Calcium 20 mg 08/17/20 21:00 08/17/20 21:43 Rosuvastatin 20 Mg Tab PO 20 mg HS JOSELIN Administration Sodium Chloride 10 ml 08/18/20 09:00 08/18/20 10:05 Flush - Normal Saline 10 Ml Syringe IVF 10 ml Q12HR JOSELIN Administration - Exam General Appearance: NAD, awake alert Heart: RRR, no murmur, no gallops, no rubs, normal peripheral pulses Respiratory: CTAB, no wheezes, no rales, no ronchi, normal chest expansion, no tachypnea, normal percussion Gastrointestinal: soft, non-tender, non-distended, normal bowel sounds, no palpable masses, no hepatomegaly, no splenomegaly Extremities: 2+ LE edema Skin: normal turgor Neurological: no focal deficits Musculoskeletal: normal tone, normal strength, no muscle wasting Psychiatric: normal affect, normal behavior Hosp A/P (1) Acute systolic (congestive) heart failure Code(s): I50.21 - ACUTE SYSTOLIC (CONGESTIVE) HEART FAILURE Status: Acute (2) Microcytic anemia Code(s): D50.9 - IRON DEFICIENCY ANEMIA, UNSPECIFIED Status: Acute (3) Hypoglycemia Code(s): E16.2 - HYPOGLYCEMIA, UNSPECIFIED Status: Acute (4) Hypomagnesemia Code(s): E83.42 - HYPOMAGNESEMIA Status: Acute (5) DM type 2 (diabetes mellitus, type 2) Status: Chronic (6) Peripheral vascular disease Code(s): I73.9 - PERIPHERAL VASCULAR DISEASE, UNSPECIFIED Status: Acute (7) Myocardial infarction type 2 Code(s): I21.A1 - MYOCARDIAL INFARCTION TYPE 2 Status: Acute - Plan Acute systolic congestive heart failure: Patient presented with significant volume overload. His repeat echocardiogram shows an ejection fraction of 20 to 25% with moderate to severe MR. Patient's previous echocardiogram revealed an ejection fraction of 50 to 55% in 2018. Continue with aggressive diuresis. Consult cardiology. Patient will likely need a heart cath to investigate the significant decline in his ejection fraction. Patient will also need a LifeVest prior to discharge. All of this was discussed with the patient. Obtain records from his inspector and sorter in [place]. Microcytic anemia: Iron studies. Hemoccult negative. Consult gastroenterology. Discussed with cardiology based on their recommendations we will transfuse 1 unit of packed red blood cells. This is anticipation of performing a heart cath and to assist the patient with his overall heart failure symptoms. Hypoglycemia and diabetes: Discontinued the patient's glyburide. We will reduce his Metformin dose to 500 mg p.o. twice daily Hypokalemia: Likely made worse with the diuretics. Continue with electrolyte replacement protocol. We will give an additional dose of potassium this afternoon. Hypomagnesemia: IV repletion. Peripheral vascular disease: Patient reports he has 2 stents in his legs that were placed several years ago. He continues on Brilinta which would typically not be indicated. Discussed with Dr. Lawrence. Given that the patient's history is not entirely reliable we will not discontinue that as of yet. NSTEMI type II: Secondary to acute congestive heart failure exacerbation.
--- NOTE | 2020-08-18 15:07 | CON ---
DATE OF CONSULTATION: 08/18/2020 REASON FOR CONSULTATION: Cardiomyopathy. HISTORY OF PRESENT ILLNESS: Mr. Stephenson is a 65-year-old gentleman, who is seen and evaluated by Cardiology in [place], [place]. Unfortunately, Mr. Stephenson is vague and a very poor historian. He states he does have a head golf professional in [place], but is unsure why he sees a head golf professional. Based on his history in the chart, it appears he has had stents to his lower extremities and is currently on Brilinta. He is unsure whether he has had stents to his heart. He states he has never been told his heart function was depressed. He recently presented with increased shortness of breath. He does have chest pain, but appears to be intermittent and rare. He also presented with significant anemia with a hemoglobin of 7.9. PAST MEDICAL HISTORY: Diabetes mellitus, CAD?, PVD?, hyperlipidemia, acid reflux, previous cardiomyopathy with LVEF 35%, buccal abscess. SOCIAL HISTORY: Quit all tobacco products 30 years ago. He currently lives with his parents. FAMILY HISTORY: Negative for CAD. HOME MEDICATIONS: 1. CoQ10. 2. Brilinta. 3. Crestor. 4. Cymbalta. 5. Aspirin. 6. Gabapentin. 7. Glyburide. 8. Iron. 9. Magnesium. 10. Metformin. 11. NovoLog. 12. K-Dur. 13. Midodrine. 14. Protonix. ALLERGIES: NONE. REVIEW OF SYSTEMS: A 10-point review of systems is reviewed and is as above, negative. PHYSICAL EXAMINATION: GENERAL: Patient is a pleasant male who is in no acute distress. The patient appears disheveled and pale. VITAL SIGNS: Blood pressure 98/54, pulse 95, temperature 98.2. NEUROLOGIC: The patient is alert and oriented x3 with no focal neurologic deficits. HEENT: Sclerae without icterus. Mouth has moist mucous membranes with normal pallor. NECK: No JVD. Carotid upstroke brisk. No bruits bilaterally. LUNGS: Clear to auscultation with unlabored respirations. BACK: No scoliosis or kyphosis. CARDIAC: Regular rate and rhythm with normal S1 and S2. No S3 or S4 noted. No significant rubs, murmurs, thrills, or gallops noted throughout the precordium. PMI is not displaced. There is no parasternal heave. ABDOMEN: Soft, nontender, nondistended. No peritoneal signs present. No hepatosplenomegaly. No abnormal striae. EXTREMITIES: 2+ femoral and 2+ dorsalis pedis pulses. No cyanosis, clubbing, or edema. SKIN: No gross abnormalities. PERTINENT LABORATORY DATA: Hemoglobin 7.7, platelet count 309, white blood cell count 6.0. IMPRESSION: 1. Cardiomyopathy. 2. Anemia. 3. Diabetes mellitus. 4. Peripheral vascular disease. RECOMMENDATIONS: Mr. Stephenson appears to have a previous history of a cardiomyopathy. Again, he is a poor historian and I am unsure what he has actually been done cardiac donnelly. I certainly do not want to repeat any further studies based on his hemoglobin of 7.9. I am also concerned about compliance. First and foremost, I would recommend obtaining his medical records from [place]. We will also recommend transfusing patient with a hemoglobin of 7.7, shortness of breath and heart failure. This may also be high output failure. He appears to have had a recent EGD. If his LVEF appears to be a new finding, we therefore recommend coronary angiography, but I am concerned about PCI with continued anemia. If his LVEF is similar to what his previous LVEF has been, we will recommend continue medical therapy with close outpatient followup with his primary head golf professional. Job ID: [id number]
[2020-08-18] MEDS ORDERED: Magnesium 2 GM/50 ML 2 GM in Premix Bag 1 BAG IVPB SCH (15:15)
[2020-08-18] MEDS: metFORMIN 500 MG TAB PO SCH (15:57)
[2020-08-18] MEDS ORDERED: Potassium Chloride 20 MEQ TAB PO SCH (16:15)
[2020-08-18 16:47] LABS: Iron 9 ug/dL (65-175); Iron Binding Capacity, Total 363 mcg/dL (261-462)
--- NOTE | 2020-08-18 18:14 | CON ---
DATE OF CONSULTATION: REQUESTING PHYSICIAN: Gerry Venegas MD REASON FOR CONSULTATION: Iron deficiency anemia. HISTORY OF PRESENT ILLNESS: Gomez Stephenson is a 65-year-old man, seen in the outpatient setting by my GI colleague, Dr. Ryan Holland. He has a history of significant coronary artery disease and peripheral vascular disease evidently with lower extremity stents and he has been on Brilinta and aspirin. He was seen by Dr. Holland for evaluation of iron deficiency anemia back in May 2020. At that time, EGD was a normal exam with normal duodenal biopsies and colonoscopy was normal except for 16 sessile tubular adenomas, which were all completely removed. Notably, hemoglobin was about 6.5 at that time and he did undergo transfusion. Over the past couple of months since then, he had not had any further transfusion, he had been taking iron supplementation, but really just taking it sporadically. He denies any overt bleeding from anywhere. He will have occasional episodes of nausea and vomiting, which basically come on randomly once or twice a day, but there was never any hematemesis. No melena or hematochezia. He was admitted to the hospital yesterday with worsening progressive shortness of breath and volume overload. He was found to be persistently anemic with hemoglobin 7.7 and that is stable today at 7.9. He had an echocardiogram, which demonstrates worsening ejection fraction of only 20% to 25%. He has elevated BNP to 2277. FOBT was actually negative. He has been evaluated by Cardiology and cardiac catheterization is being contemplated. Looking back, the patient did follow up in clinic with Dr. Holland just a few weeks ago. Outpatient capsule endoscopy was being contemplated to complete the GI workup of iron deficiency anemia, but the patient had not followed up for this. PAST MEDICAL HISTORY: Coronary artery disease; cardiomyopathy; diabetes; hyperlipidemia; GERD; peripheral vascular disease with lower extremity stents; colon polyps, with 16 tubular adenomas removed in May 2020; iron deficiency anemia; and former tobacco abuse. SOCIAL HISTORY: The patient is a former smoker. FAMILY HISTORY: Noncontributory. ALLERGIES: NO KNOWN DRUG ALLERGIES. OUTPATIENT MEDICATIONS: 1. Brilinta 90 mg twice daily. 2. Iron 65 mg daily (the patient has not been taking this daily). 3. Coenzyme Q10. 4. Crestor. 5. Cymbalta. 6. Aspirin 81 mg daily. 7. Gabapentin 600 mg twice daily. 8. Glyburide. 9. Magnesium oxide 400 mg daily. 10. Metformin 1000 mg twice daily. 11. Sliding-scale insulin. 12. Potassium chloride 20 mEq twice daily. 13. Midodrine. 14. Protonix 40 mg daily. REVIEW OF SYSTEMS: Full review of systems including constitutional, head, eyes, ears, nose, throat, GI, , cardiovascular, respiratory, musculoskeletal, and neurologic systems is negative except as noted in the HPI. PHYSICAL EXAMINATION: VITAL SIGNS: Temperature 97.4, pulse 92, blood pressure 99/56, and oxygen saturation 97% on room air. GENERAL: A 65-year-old man, sitting up in bed comfortably, in no distress. SKIN: He is a bit pale. No jaundice. He does have petechiae to the upper extremities bilaterally. EYES: No scleral icterus. Extraocular movements intact. ENT: Mucous membranes moist. No oral lesions. LYMPH: No submandibular or supraclavicular lymphadenopathy. THYROID: Nontender to palpation. HEART: Regular rate and rhythm. LUNGS: Clear to auscultation bilaterally. ABDOMEN: Nondistended. Bowel sounds present. Soft and nontender to palpation. EXTREMITIES: 1+ bilateral lower extremity edema. NEURO: Cranial nerves II through XII intact bilaterally. No focal deficits. LABORATORY STUDIES: Hemoglobin 7.9, MCV 72.6, WBC 6.0, and platelets 309. Sodium 137, potassium 2.8, BUN 14, creatinine 1.27, and glucose 247. BNP elevated to 2277. Troponin 0.127. LFTs all normal with total bilirubin 0.8, alkaline phosphatase 72, AST 14, ALT less than 7, and albumin 3.3. TSH 1.46. IMAGING STUDIES: Chest x-ray is negative. Echocardiogram showed ejection fraction only 20% to 25% with severe left atrial dilation and mitral valve regurgitation. This is a change from 2018. May 2020, CT of the abdomen and pelvis demonstrated nodularity of the liver with splenomegaly, also 4-mm right pulmonary nodule. ASSESSMENT AND PLAN: 1. Chronic anemia of iron deficiency, stable since May 2020. 2. Iron deficiency, the patient has not really been compliant with daily iron replacement. 3. Congestive heart failure exacerbation, now with worsening left ventricular ejection fraction. The patient has worsening cardiac symptoms in the context of worsening ejection fraction and a significant but stable iron deficiency anemia. The gastrointestinal workup has already been done and fairly recently, so I do not think there is any benefit to repeating upper or lower endoscopy at this time. His hemoglobin is stable here and there has been no overt bleeding. I do think it would be worthwhile to reconsider outpatient capsule endoscopy, but this would be on an outpatient basis. In the meantime, recommend proceeding with whatever cardiac workup is deemed necessary. We can follow along tomorrow and trend the H and H, but no other recommendations from a GI perspective at this time. Following discharge, he needs to be more compliant with iron supplementation. Job ID: [id number]
[2020-08-18] MEDS: Rosuvastatin 20 MG TAB PO SCH (20:55)
[2020-08-19] MEDS ORDERED: Melatonin 3 MG TAB PO SCH (00:15)
[2020-08-19] MEDS: Furosemide 40 MG/4 ML VIAL SLOW IVP SCH ×2 (06:13→14:26)
[2020-08-19 07:40] LABS: #Basophils 0.1 thou/uL (0.0-0.2); #Eosinphils 0.1 thou/uL (0.0-0.7); #Lymphocytes 0.9 thou/uL (1.20-3.40); #Monocytes 0.6 thou/uL (0.11-0.59); #Neutrophils 3.7 thou/uL (1.40-6.50); %Basophils 0.9 % (0.0-1.0); %Eosinophils 1.8 % (0.0-10.0); %Lymphocytes 16.4 % (21.0-51.0); %Monocytes 10.9 % (0.0-10.0); Hemoglobin 8.1 g/dL (14.0-18.0); Mean Corpuscular HGB CONC 31.1 g/dL (32.0-36.0); Mean Corpuscular Hemoglobin 22.8 pg (27.0-31.0); Mean Corpuscular Volume 73.5 fL (78.0-98.0); Mean Platelet Volume 9.9 fL (7.4-10.4); Platelet Count 246 thou/uL (130-400); RBC Distribution Width 18.8 % (11.5-14.5); Red Blood Cell (RBC) Count 3.54 mill/uL (4.70-6.10); White Blood Cell (WBC) Count 5.3 thou/uL (4.8-10.8)
[2020-08-19 07:55] LABS: Anion Gap 14 mmol/L (10-20); BUN (Urea Nitrogen) 15 mg/dL (8.4-25.7); Calc. Creatinine Clearance 62 mL/min (70-130); Calcium 8.1 mg/dL (7.8-10.44); Carbon Dioxide 21 mmol/L (23-31); Chloride 100 mmol/L (98-107); Glucose 144 mg/dL (80-115); Potassium 4.2 mmol/L (3.5-5.1); Sodium 131 mmol/L (136-145)
[2020-08-19] MEDS: Enoxaparin Sodium 30 MG/0.3 ML SYRINGE SC SCH (08:40)
[2020-08-19] MEDS: Ubidecarenone 50 MG CAP PO SCH (08:40)
[2020-08-19 08:41] LABS: SARS-CoV-2 PCR by NAA Not Detected (NotDetected)
[2020-08-19] MEDS: Magnesium Oxide 400 MG TAB PO SCH (08:41)
[2020-08-19] MEDS: DULoxetine 30 MG CAP PO SCH (08:41)
[2020-08-19] MEDS: Aspirin Chewable 81 MG TAB PO SCH (08:41)
[2020-08-19] MEDS: Gabapentin 300 MG CAP PO SCH ×2 (08:41→20:12)
[2020-08-19] MEDS: metFORMIN 500 MG TAB PO SCH ×2 (08:41→15:59)
[2020-08-19] MEDS: Midodrine HCl 5 MG TAB PO SCH ×3 (08:42→20:13)
[2020-08-19] MEDS: Ferrous Sulfate 325 MG TAB PO SCH (08:42)
--- NOTE | 2020-08-19 10:53 | PDOC.HOSPP ---
- Subjective Encounter Date: 08/19/20 Subjective: Patient denies complaints. Thinks he is getting a little better in general. - Objective Vital Signs & Weight: Vital Signs (12 hours) Temp Pulse Pulse Pulse Resp BP BP 08/19/20 10:17 104 H 98 92/50 L 08/19/20 07:45 98.2 F 89 18 97/63 08/19/20 03:43 98.6 F 90 18 95/54 L Pulse Ox Pulse Ox 08/19/20 10:17 100 08/19/20 07:45 99 08/19/20 03:43 100 Weight Weight 199 lb 1.6 oz I&O: 08/18/20 08/19/20 08/20/20 06:59 06:59 06:59 Intake Total 0 Balance 0 Result Diagrams: 08/19/20 07:23 08/19/20 07:23 Additional Labs: Accuchecks 08/19/20 08/18/20 08/18/20 06:30 20:51 16:40 POC Glucose 150 H 159 H 179 H Hospitalist ROS - Medication Medications: Active Medications Generic Name Dose Route Start Last Admin Trade Name Freq PRN Reason Stop Dose Admin Aspirin 81 mg 08/18/20 09:00 08/19/20 08:41 Aspirin Chewable 81 Mg Tab PO 81 mg DAILY JOSELIN Administration Coenzyme Q10 100 mg 08/18/20 09:00 08/19/20 08:40 Ubidecarenone 50 Mg Cap PO 100 mg DAILY JOSELIN Administration Dextrose/Water 25 gm 08/17/20 15:46 08/18/20 05:55 Dextrose 50% Abboject 50 Ml Syringe SLOW IVP 25 gm PRN PRN Administration Hypoglycemia Duloxetine HCl 30 mg 08/18/20 09:00 08/19/20 08:41 Duloxetine 30 Mg Cap PO 30 mg DAILY JOSELIN Administration Enoxaparin Sodium 30 mg 08/18/20 09:00 08/19/20 08:40 Enoxaparin Sodium 30 Mg/0.3 Ml Syringe SC 30 mg 0900 JOSELIN Administration Ferrous Sulfate 325 mg 08/18/20 08:00 08/19/20 08:42 Ferrous Sulfate 325 Mg Tab PO 325 mg QAM-WM JOSELIN Administration Furosemide 40 mg 08/18/20 06:00 08/19/20 06:13 Furosemide 40 Mg/4 Ml Vial SLOW IVP Not Given 0600,1400 JOSELIN Gabapentin 600 mg 08/17/20 21:00 08/19/20 08:41 Gabapentin 300 Mg Cap PO 600 mg BID JOSELIN Administration Insulin Human Lispro 0 units 08/17/20 15:46 08/18/20 17:56 Humalog 300 Units/3 Ml Vial SC 2 unit .MODERATE SLIDING SC PRN Administration Moderate Correctional Scale Magnesium Oxide 400 mg 08/18/20 09:00 08/19/20 08:41 Magnesium Oxide 400 Mg Tab PO 400 mg DAILY JOSELIN Administration Metformin HCl 500 mg 08/18/20 17:00 08/19/20 08:41 Metformin 500 Mg Tab PO 500 mg BID-WM JOSELIN Administration Midodrine 2.5 mg 08/17/20 21:00 08/19/20 08:42 Midodrine Hcl 5 Mg Tab PO 2.5 mg TID JOSELIN Administration Pantoprazole Sodium 40 mg 08/18/20 09:00 08/19/20 08:40 Pantoprazole 40 Mg Tab PO 40 mg DAILY JOSELIN Administration Rosuvastatin Calcium 20 mg 08/17/20 21:00 08/18/20 20:55 Rosuvastatin 20 Mg Tab PO 20 mg HS JOSELIN Administration Sodium Chloride 10 ml 08/18/20 09:00 08/18/20 20:56 Flush - Normal Saline 10 Ml Syringe IVF 10 ml Q12HR JOSELIN Administration - Exam General Appearance: NAD, awake alert General - other findings: Very pale Heart: RRR, no murmur, no gallops, no rubs, normal peripheral pulses Respiratory: CTAB, no wheezes, no rales, no ronchi, normal chest expansion, no tachypnea, normal percussion Gastrointestinal: soft, non-tender, non-distended, normal bowel sounds, no pal pable masses, no hepatomegaly, no splenomegaly, no bruit Extremities: no cyanosis, no clubbing, no edema Skin: normal turgor Neurological: no focal deficits Hosp A/P (1) Acute systolic (congestive) heart failure Code(s): I50.21 - ACUTE SYSTOLIC (CONGESTIVE) HEART FAILURE Status: Acute (2) Microcytic anemia Code(s): D50.9 - IRON DEFICIENCY ANEMIA, UNSPECIFIED Status: Acute (3) Hypoglycemia Code(s): E16.2 - HYPOGLYCEMIA, UNSPECIFIED Status: Acute (4) Hypomagnesemia Code(s): E83.42 - HYPOMAGNESEMIA Status: Acute (5) DM type 2 (diabetes mellitus, type 2) Status: Chronic (6) Peripheral vascular disease Code(s): I73.9 - PERIPHERAL VASCULAR DISEASE, UNSPECIFIED Status: Acute (7) Myocardial infarction type 2 Code(s): I21.A1 - MYOCARDIAL INFARCTION TYPE 2 Status: Acute - Plan Acute systolic congestive heart failure: Patient presented with significant volume overload. His repeat echocardiogram shows an ejection fraction of 20 to 25% with moderate to severe MR. Patient's previous echocardiogram revealed an ejection fraction of 50 to 55% in 2018. Continue with aggressive diuresis. Dr. Lawrence consult appreciated. Case was reviewed with him. Patient will likely need a heart cath to investigate the significant decline in his ejection fraction. Patient will also need a LifeVest prior to discharge. All of this was discussed with the patient. Obtain records from his senior mechanical development engineer in [place]. Microcytic anemia: Iron studies. Hemoccult negative. Consult gastroenterology did not recommend any additional work-up. Did recommend improved compliance with his iron supplementation. Discussed with cardiology based on their recommendations we will transfuse 1 unit of packed red blood cells. This is anticipation of performing a heart cath and to assist the patient with his overall heart failure symptoms. On 08/19/2020 hemoglobin improved to 8.1 after 1 unit of PRBCs. Hypoglycemia and diabetes: Discontinued the patient's glyburide. We will reduce his Metformin dose to 500 mg p.o. twice daily Hypoglycemia did not occur on 08/19/2020. Hypokalemia: Likely made worse with the diuretics. Continue with electrolyte replacement protocol. Improved on 08/19/2020. Hypomagnesemia: IV repletion. Peripheral vascular disease: Patient reports he has 2 stents in his legs that were placed several years ago. He continues on Brilinta which would typically not be indicated. Discussed with Dr. Lawrence. Given that the patient's history is not entirely reliable we will not disconti nue that as of yet. NSTEMI type II: Secondary to acute congestive heart failure exacerbation.
[2020-08-19] MEDS: HumaLOG 300 UNITS/3 ML VIAL SC PRN (11:58)
[2020-08-19] MEDS ORDERED: Zolpidem Tartrate 5 MG TAB PO PRN (16:20)
--- NOTE | 2020-08-19 17:41 | PRG ---
DATE OF SERVICE: 08/19/2020 SUBJECTIVE: Mr. Stephenson is stable. No current complaints. He states his shortness of breath has improved. OBJECTIVE: VITAL SIGNS: Blood pressure 108/62, pulse 100, temperature 97.4. LUNGS: Clear to auscultation. HEART: Regular rate and rhythm. ABDOMEN: Soft, nontender, and nondistended. EXTREMITIES: 1+ pitting edema. PERTINENT LABORATORY DATA: Hemoglobin 8.1 after 1 unit of blood. IMPRESSION: 1. Cardiomyopathy. 2. Anemia. 3. Peripheral vascular disease. RECOMMENDATIONS: Mr. Stephenson today did state that he underwent a procedure where a tube was placed into his heart. He was told he did not need a stent or surgery and would be treated medically. There is also documentation that his LVEF was 35% in the past. We have tried to obtain records from an outlying facility over the last 48 hours and have been unsuccessful. At this point based on his history of noncompliance and likely a nonischemic cardiomyopathy, we would recommend a LifeVest. He is amenable. We would recommend not proceeding with coronary angiography and recommend a more conservative approach. I am suspicious that his LVEF has been low in the past. From a CV standpoint, difficult to treat with beta marie therapy, AISHWARYA inhibitor therapy, or ARB due to hypotension. He is on midodrine. Otherwise, I have no further recommendations. Job ID: [id number]
[2020-08-19] MEDS: Rosuvastatin 20 MG TAB PO SCH (20:12)
--- NOTE | 2020-08-19 23:52 | PRG ---
DATE OF SERVICE: 08/19/2020 SUBJECTIVE: Mr. Stephenson has had no blood in his stool. No abdominal pain. OBJECTIVE: VITAL SIGNS: Temperature 97.4, pulse 100, blood pressure 108/62. GENERAL: He is in no acute distress. Alert and oriented x3. LUNGS: Clear to auscultation bilaterally. HEART: Regular rate and rhythm without murmur. ABDOMEN: Soft, nontender, nondistended. Bowel sounds are present. EXTREMITIES: No lower extremity edema. IMPRESSION: 1. Iron deficiency anemia. 2. Cardiomyopathy. He is being evaluated for LifeVest placement. His anemia has been worked up previously with an endoscopy. He can follow up in the office to evaluate for capsule endoscopy. RECOMMENDATIONS: 1. Continue iron supplementation. 2. He is on proton pump inhibitor. 3. Follow up in GI Clinic. Capsule endoscopy can be scheduled at that time. 4. I will sign off. Please call if GI can be of assistance. Job ID: [id number]
[2020-08-20] MEDS: Furosemide 40 MG/4 ML VIAL SLOW IVP SCH ×2 (06:00→14:21)
[2020-08-20] MEDS: Aspirin Chewable 81 MG TAB PO SCH (09:25)
[2020-08-20] MEDS: Enoxaparin Sodium 30 MG/0.3 ML SYRINGE SC SCH (09:25)
[2020-08-20] MEDS: Gabapentin 300 MG CAP PO SCH (09:25)
[2020-08-20] MEDS: metFORMIN 500 MG TAB PO SCH (09:26)
[2020-08-20] MEDS: Ubidecarenone 50 MG CAP PO SCH (09:26)
[2020-08-20] MEDS: Ferrous Sulfate 325 MG TAB PO SCH (09:26)
[2020-08-20] MEDS: Midodrine HCl 5 MG TAB PO SCH ×2 (09:26→14:19)
[2020-08-20] MEDS: DULoxetine 30 MG CAP PO SCH (09:26)
[2020-08-20] MEDS: Magnesium Oxide 400 MG TAB PO SCH (09:27)
--- NOTE | 2020-08-20 12:02 | PDOC.HOSPP ---
- Subjective Encounter Date: 08/20/20 Subjective: Feeling well. Eager to go home. Feels like he is improved. Breathing comfortably. - Objective Vital Signs & Weight: Vital Signs (12 hours) Temp Pulse Resp BP Pulse Ox 08/20/20 09:30 99 08/20/20 09:20 98.3 F 104 H 18 109/66 99 08/20/20 03:44 99.2 F 98 20 100/57 L 97 08/20/20 00:10 96 92/55 L Weight Weight 210 lb I&O: 08/19/20 08/20/20 08/21/20 06:59 06:59 06:59 Intake Total 0 1640 Output Total 875 Balance 0 765 Result Diagrams: 08/19/20 07:23 08/19/20 07:23 Additional Labs: Accuchecks 08/20/20 08/20/20 08/19/20 10:50 06:09 20:27 POC Glucose 181 H 106 H 128 H 08/19/20 08/18/20 16:27 05:47 POC Glucose 165 H TNP Hospitalist ROS - Medication Medications: Active Medications Generic Name Dose Route Start Last Admin Trade Name Freq PRN Reason Stop Dose Admin Aspirin 81 mg 08/18/20 09:00 08/20/20 09:25 Aspirin Chewable 81 Mg Tab PO 81 mg DAILY JOSELIN Administration Coenzyme Q10 100 mg 08/18/20 09:00 08/20/20 09:26 Ubidecarenone 50 Mg Cap PO 100 mg DAILY JOSELIN Administration Dextrose/Water 25 gm 08/17/20 15:46 08/18/20 05:55 Dextrose 50% Abboject 50 Ml Syringe SLOW IVP 25 gm PRN PRN Administration Hypoglycemia Duloxetine HCl 30 mg 08/18/20 09:00 08/20/20 09:26 Duloxetine 30 Mg Cap PO 30 mg DAILY JOSELIN Administration Enoxaparin Sodium 30 mg 08/18/20 09:00 08/20/20 09:25 Enoxaparin Sodium 30 Mg/0.3 Ml Syringe SC 30 mg 09 JOSELIN Administration Ferrous Sulfate 325 mg 08/18/20 08:00 08/20/20 09:26 Ferrous Sulfate 325 Mg Tab PO 325 mg QAM-WM JOSELIN Administration Furosemide 40 mg 08/18/20 06:00 08/20/20 06:00 Furosemide 40 Mg/4 Ml Vial SLOW IVP 40 mg 0600,1400 JOSELIN Administration Gabapentin 600 mg 08/17/20 21:00 08/20/20 09:25 Gabapentin 300 Mg Cap PO 600 mg BID JOSELIN Administration Insulin Human Lispro 0 units 08/17/20 15:46 08/19/20 11:58 Humalog 300 Units/3 Ml Vial SC 2 unit .MODERATE SLIDING SC PRN Administration Moderate Correctional Scale Magnesium Oxide 400 mg 08/18/20 09:00 08/20/20 09:27 Magnesium Oxide 400 Mg Tab PO 400 mg DAILY JOSELIN Administration Metformin HCl 500 mg 08/18/20 17:00 08/20/20 09:26 Metformin 500 Mg Tab PO 500 mg BID-WM JOSELIN Administration Midodrine 2.5 mg 08/17/20 21:00 08/20/20 09:26 Midodrine Hcl 5 Mg Tab PO 2.5 mg TID JOSELIN Administration Pantoprazole Sodium 40 mg 08/18/20 09:00 08/20/20 09:27 Pantoprazole 40 Mg Tab PO 40 mg DAILY JOSELIN Administration Rosuvastatin Calcium 20 mg 08/17/20 21:00 08/19/20 20:12 Rosuvastatin 20 Mg Tab PO 20 mg HS JOSELIN Administration Sodium Chloride 10 ml 08/18/20 09:00 08/20/20 09:27 Flush - Normal Saline 10 Ml Syringe IVF 10 ml Q12HR JOSELIN Administration Zolpidem Tartrate 5 mg 08/19/20 16:20 08/19/20 20:13 Zolpidem Tartrate 5 Mg Tab PO 5 mg HSPRN PRN Administration Insomnia - Exam General Appearance: NAD, awake alert Heart: RRR, no murmur, no gallops, no rubs, normal peripheral pulses Respiratory: CTAB, no wheezes, no rales, no ronchi, normal chest expansion, no tachypnea, normal percussion Gastrointestinal: soft, non-tender, non-distended, normal bowel sounds, no palpable masses, no hepatomegaly, no splenomegaly, no bruit Extremities: no cyanosis, no clubbing, 1+ LE edema Skin: normal turgor Neurological: no focal deficits Musculoskeletal: normal tone, normal strength, no muscle wasting Psychiatric: normal affect, normal behavior Hosp A/P (1) Acute systolic (congestive) heart failure Code(s): I50.21 - ACUTE SYSTOLIC (CONGESTIVE) HEART FAILURE Status: Acute (2) Microcytic anemia Code(s): D50.9 - IRON DEFICIENCY ANEMIA, UNSPECIFIED Status: Acute (3) Hypoglycemia Code(s): E16.2 - HYPOGLYCEMIA, UNSPECIFIED Status: Acute (4) Hypomagnesemia Code(s): E83.42 - HYPOMAGNESEMIA Status: Acute (5) DM type 2 (diabetes mellitus, type 2) Status: Chronic (6) Peripheral vascular disease Code(s): I73.9 - PERIPHERAL VASCULAR DISEASE, UNSPECIFIED Status: Acute (7) Myocardial infarction type 2 Code(s): I21.A1 - MYOCARDIAL INFARCTION TYPE 2 Status: Acute - Plan Acute systolic congestive heart failure: Patient presented with significant volume overload. His repeat echocardiogram shows an ejection fraction of 20 to 25% with moderate to severe MR. Patient's previous echocardiogram revealed an ejection fraction of 50 to 55% in 2018. Apparently have one since then which showed an ejection fraction in the 30s. Continue with aggressive diuresis. Dr. Lawrence consult appreciated. Case was reviewed with him. Given the possibility that the patient had a subsequent echocardiogram revealing a prior cardiomyopathy it is unclear whether he needs further investigation. We have been unable to obtain the records from his physical therapy assistant instructor in [place] thus far. The patient is unable to give a significant or accurate history of his prior cardiac evaluation and treatment. He appears to be stable. Anticipate getting him a LifeVest and letting him discharge. He will be able to follow-up with his primary physical therapy assistant instructor in [place]. His relative hypotension precludes the use of AISHWARYA inhibitors, beta-blockers. Microcytic anemia: Iron studies. Hemoccult negative. Consult gastroenterology did not recommend any additional work-up. Did recommend improved compliance with his iron supplementation. Discussed with cardiology based on their recommendations we will transfuse 1 unit of packed red blood cells. This is anticipation of performing a heart cath and to assist the patient with his overall heart failure symptoms. On 08/19/2020 hemoglobin improved to 8.1 after 1 unit of PRBCs. Hypoglycemia and diabetes: Discontinued the patient's glyburide. We will reduce his Metformin dose to 500 mg p.o. twice daily Hypoglycemia did not occur on 08/19/2020 or subsequent. Hypokalemia: Likely made worse with the diuretics. Continue with electrolyte replacement protocol. Improved on 08/19/2020. Hypomagnesemia: IV repletion. Peripheral vascular disease: Patient reports he has 2 stents in his legs that were placed several years ago. He continues on Brilinta which would typically not be indicated. Discussed with Dr. Lawrence. Given that the patient's history is not entirely reliable we will not discontinue that as of yet. NSTEMI type II: Secondary to acute congestive heart failure exacerbation.
[2020-08-20 12:17] VITALS: BP 116/66; TEMP 97.3
--- NOTE | 2020-08-20 13:38 | PRG ---
DATE OF SERVICE: 08/20/2020 SUBJECTIVE: Mr. Stephenson is doing well. No current complaints. He continues to have a lower extremity edema, but does not have significant shortness of breath. He states he is back to baseline. OBJECTIVE: VITAL SIGNS: Blood pressure 116/66, pulse 104, temperature afebrile. LUNGS: Minimal crackles bilaterally. HEART: Regular rate and rhythm. ABDOMEN: Soft, nontender, nondistended. EXTREMITIES: 1 to 2+ pitting edema. PERTINENT LABORATORY DATA: Hemoglobin not done this morning. IMPRESSION: 1. Cardiomyopathy. 2. Anemia. 3. Renal insufficiency. 4. Noncompliance. 5. Peripheral arterial disease. RECOMMENDATIONS: We have yet to receive previous records from [place]. They have been faxed over multiple times. Based on his history, I do state his cardiomyopathy is old. He underwent coronary angiography 1 or 2 years ago and was not found to have significant coronary artery disease. Recommend medical therapy. Certainly, seems reasonable to proceed with continued medical therapy. We would recommend LifeVest. This has been ordered. Avoid beta-marie therapy or AISHWARYA inhibitor therapy due to hypotension. He is currently on midodrine. He will follow up with his primary manager pe in [place]. Otherwise, I have no further recommendations. We will sign off. Dr. Page will be available for questions if needed over the weekend. Job ID: [id number]
--- NOTE | 2020-08-26 12:04 | PDOC.DS.DS ---
Provider Date of Admission: 08/17/20 13:37 Date of Discharge: 08/20/20 Admitting Provider: Matilda Goff MD Primary Care Physician: LISBET WALL MD Course Hospital Course: Acute systolic congestive heart failure: Patient presented with significant volume overload. His repeat echocardiogram shows an ejection fraction of 20 to 25% with moderate to severe MR. Patient's previous echocardiogram revealed an ejection fraction of 50 to 55% in 2018. Apparently have one since then which showed an ejection fraction in the 30s. Aggressively diuresed. Dr. Lawrence consult. Case was reviewed with him. Given the possibility that the patient had a subsequent echocardiogram revealing a prior cardiomyopathy it is unclear whether he needs further investigation. We were unable to obtain the records from his die casting machine operator in [place]. The patient is unable to give a significant or accurate history of his prior cardiac evaluation and treatment. He appeared to be stable. He was fitted with a Life Vest. He will be able to follow-up with his primary die casting machine operator in [place]. His relative hypotension precludes the use of AISHWARYA inhibitors, beta-blockers. Microcytic anemia: Iron studies. Hemoccult negative. Consult gastroenterology did not recommend any additional work-up. Did recommend improved compliance with his iron supplementation. Discussed with cardiology based on their recommendations we will transfuse 1 unit of packed red blood cells. This was in anticipation of performing a heart cath and to assist the patient with his overall heart failure symptoms. On 08/19/2020 hemoglobin improved to 8.1 after 1 unit of PRBCs. Hypoglycemia and diabetes: Discontinued the patient's glyburide. Reduced his Metformin dose to 500 mg p.o. twice daily Hypoglycemia did not occur on 08/19/2020 or subsequent. Hypokalemia: Likely made worse with the diuretics. Continued with electrolyte replacement protocol. Improved on 08/19/2020. Hypomagnesemia: IV repletion. Peripheral vascular disease: Patient reports he has 2 stents in his legs that were placed several years ago. He continues on Brilinta which would typically not be indicated. Discussed with Dr. Lawrence. Given that the patient's history is not entirely reliable we will not discontinue that as of yet. NSTEMI type II: Secondary to acute congestive heart failure exacerbation. Resuscitation Status: 08/17/20 14:20 Resuscitation Status Routine Resuscitation Status: DNAR: NO Resuscitation Discussed with: d/w patient at bedside Lab Results: 08/19/20 07:23 08/19/20 07:23 Microbiology - Entire Visit 08/17/20 13:13 Stool - Pending - Final Vitals: Weight Weight 210 lb Physical Exam: The patient was seen and examined on the day of discharge. General Appearance: NAD, awake alert Eye: PERRL Neck: supple, symmetric, no JVD Respiratory: CTAB, no wheezes, no rales, no ronchi, normal chest expansion Cardiovascular: RRR, no murmur, no gallops, no rubs Gastrointestinal: soft, non-tender, non-distended, normal bowel sounds, no palpable masses Extremities: 1+ LE edema Skin: normal turgor Neurological: no new deficit Musculoskeletal: normal tone PSYCH: normal affect, normal behavior, A&O x 3 Problem (1) Acute systolic (congestive) heart failure Code(s): I50.21 - ACUTE SYSTOLIC (CONGESTIVE) HEART FAILURE Status: Acute (2) Microcytic anemia Code(s): D50.9 - IRON DEFICIENCY ANEMIA, UNSPECIFIED Status: Acute (3) Hypoglycemia Code(s): E16.2 - HYPOGLYCEMIA, UNSPECIFIED Status: Acute (4) Hypomagnesemia Code(s): E83.42 - HYPOMAGNESEMIA Status: Acute (5) DM type 2 (diabetes mellitus, type 2) Status: Chronic (6) Peripheral vascular disease Code(s): I73.9 - PERIPHERAL VASCULAR DISEASE, UNSPECIFIED Status: Acute (7) Myocardial infarction type 2 Code(s): I21.A1 - MYOCARDIAL INFARCTION TYPE 2 Status: Acute Plan Prescriptions: metFORMIN [Glucophage] 500 mg PO BID- #60 tab Furosemide [Lasix] 40 mg PO DAILY #30 tab Potassium Chloride 20 meq PO DAILY #30 ml Home Medications: Medication Instructions Recorded Confirmed Type Acetaminophen [Tylenol Extra 500 mg PO Q6HR PRN 07/04/18 08/24/19 History Strength] Aspirin [Ecotrin Low Strength] 81 mg PO DAILY 07/04/18 08/24/19 History Exenatide Microspheres [Bydureon] 2 mg SQ Q7DAYS 07/04/18 08/24/19 History Gabapentin 600 mg PO BID 07/04/18 08/24/19 History Rosuvastatin Calcium [Crestor] 20 mg PO DAILY 07/04/18 08/24/19 History Ticagrelor [Brilinta] 90 mg PO BID 07/04/18 08/24/19 History Cinnamon Bark [Cinnamon] 500 mg PO DAILY 08/24/19 08/24/19 History DULoxetine [Cymbalta] 30 mg PO DAILY 08/24/19 08/24/19 History Insulin Aspart [Novolog] 0 unit SQ PRN PRN 08/24/19 08/24/19 History Iron 65 mg PO DAILY 08/24/19 08/24/19 History Magnesium Oxide 400 mg PO DAILY 08/24/19 08/24/19 History Ubidecarenone [Co Q-10] 0 mg PO DAILY 08/24/19 08/24/19 History Midodrine HCl [ProAmatine] 2.5 mg PO TID #90 tab 08/26/19 Rx Pantoprazole [Protonix] 40 mg PO ONE #30 tab 08/26/19 Rx Potassium Chloride [K-Dur] 20 meq PO BID-WM #60 tab 08/26/19 Rx Furosemide [Lasix] 40 mg PO DAILY #30 tab 08/20/20 Rx Potassium Chloride 20 meq PO DAILY #30 ml 08/20/20 Rx metFORMIN [Glucophage] 500 mg PO BID-WM #60 tab 08/20/20 Rx Allergies: No Known Drug Allergies Allergy (Verified 07/04/18 03:02) PER DR FORD IN ER RECORD Discharge Instructions:: Follow up with your Hvac Design Mechanical Engineer next week. Activity:: Activity as Tolerated Nourishment:: Diabetic Diet, Heart Healthy Diet, Low Sodium Diet Referrals: Lisbet Gonzalez MD [Active] - 14 Days (Please call Dr. Lawrence's office within 2 weeks to schedule a follow up appointment.) LISBET WALL [Primary Care Provider] - 7 Days (Please call your primary care physician within 7 days to set up a follow up appointment. And please call to schedule a follow up apointment with your die casting machine operator within 7 days. ) Edmundo Lawrence MD [Active] - 14 Days (Please call Dr. Lawrence's office within 2 weeks to schedule a follow up appointment. ) Disposition: HOME Quality CORE MEASURES:: HF
--- NOTE | 2020-09-04 21:51 | EKG ---
Test Reason : Blood Pressure : / mmHG Vent. Rate : 097 BPM Atrial Rate : 097 BPM P-R Int : 210 ms QRS Dur : 136 ms QT Int : 400 ms P-R-T Axes : 090 -45 118 degrees QTc Int : 508 ms Sinus rhythm with 1st degree A-V block with occasional Premature ventricular complexes Left axis deviation Left bundle branch block Abnormal ECG Confirmed by JOE FIGUEREDO DO ([id number]), scientific publications editor GRAEME KIRKLAND ([id number]) on 09/04/2020 9:51:17 PM Referred By: Confirmed By:JOE FIGUEREDO DO
== END 2020-08-20 16:20 | disposition home or self-care (01) | DRG 280 ==
LOC: ERS 10:59 → ERHOLD 13:37 → 2NO 23:38
PROVIDERS: ADMIT Internal Medicine; ATTEND Internal Medicine
PROC: 30233N1 Transfusion of Nonautologous Red Blood Cells into Peripheral Vein, Percutaneous Approach (ICD-10-PCS; principal; 2020-08-18)
DX: I11.0 Hypertensive heart disease with heart failure (principal); I21.A1 Myocardial infarction type 2; I50.21 Acute systolic (congestive) heart failure; D50.9 Iron deficiency anemia, unspecified; I42.8 Other cardiomyopathies; R29.6 Repeated falls; K21.9 Gastro-esophageal reflux disease without esophagitis; Z66 Do not resuscitate; E83.42 Hypomagnesemia; I73.9 Peripheral vascular disease, unspecified; E11.649 Type 2 diabetes mellitus with hypoglycemia without coma; E87.6 Hypokalemia; I25.10 Atherosclerotic heart disease of native coronary artery without angina pectoris; Z20.822 Contact with and (suspected) exposure to COVID-19; F32.9 Major depressive disorder, single episode, unspecified; F41.9 Anxiety disorder, unspecified; J30.9 Allergic rhinitis, unspecified; E66.9 Obesity, unspecified; E78.5 Hyperlipidemia, unspecified; G43.909 Migraine, unspecified, not intractable, without status migrainosus; Z90.89 Acquired absence of other organs; Z95.5 Presence of coronary angioplasty implant and graft; Z95.820 Peripheral vascular angioplasty status with implants and grafts; Z87.891 Personal history of nicotine dependence; Z79.82 Long term (current) use of aspirin; Z79.01 Long term (current) use of anticoagulants; Z79.899 Other long term (current) drug therapy; Z79.84 Long term (current) use of oral hypoglycemic drugs; I25.2 Old myocardial infarction; Z86.19 Personal history of other infectious and parasitic diseases; Z68.31 Body mass index [BMI] 31.0-31.9, adult
CPT/HCPCS: 36415; 36416; 36430; 71045; 80048; 80053; 82270; 82550; 82553; 82728; 83540; 83550; 83735; 83880; 84443; 84484; 85025; 86850; 86900; 86901; 87635; 93005; 93306; 93798; J1650; J1940; J3475; P9016; U0003; U0005

== ENCOUNTER 2020-10-21 15:58 | Inpatient (IN) | payer MEDICARE ==
[2020-10-21 16:54] LABS: ALT (SGPT) 9 U/L (8-55); AST (SGOT) 17 U/L (5-34); Albumin 3.9 g/dL (3.4-4.8); Alkaline Phosphatase 118 U/L (40-110); Anion Gap 18 mmol/L (10-20); BUN (Urea Nitrogen) 39 mg/dL (8.4-25.7); Bilirubin, Total 1.5 mg/dL (0.2-1.2); Calc. Creatinine Clearance 0 mL/min (70-130); Calcium 8.5 mg/dL (7.8-10.44); Carbon Dioxide 22 mmol/L (23-31); Chloride 96 mmol/L (98-107); Glucose 135 mg/dL (80-115); Lipase 39 U/L (8-78); Protein, Total 6.9 g/dL (5.8-8.1); Sodium 133 mmol/L (136-145)
[2020-10-21 17:10] LABS: Anisocytosis SLIGHT = 6-15 cells (100X) (0-5/hpf); Hypochromia SLIGHT = 6-15 cells (100X) (0-5/hpf); Large Platelets SLIGHT; MDiff Complete? YES; Microcytosis SLIGHT = 6-15 cells (100X) (0-5/hpf); Platelet Morphology Comment Appears Adequate
[2020-10-21 17:11] LABS: #Basophils 0.1 thou/uL (0.0-0.2); #Eosinphils 0.1 thou/uL (0.0-0.7); #Lymphocytes 0.4 thou/uL (1.20-3.40); #Monocytes 0.6 thou/uL (0.11-0.59); #Neutrophils 3.5 thou/uL (1.40-6.50); %Basophils 1.3 % (0.0-1.0); %Eosinophils 1.5 % (0.0-10.0); %Lymphocytes 9.4 % (21.0-51.0); %Monocytes 12.2 % (0.0-10.0); %Neutrophils 75.6 % (42.0-75.0); Hemoglobin 7.2 g/dL (14.0-18.0); Mean Corpuscular HGB CONC 30.4 g/dL (32.0-36.0); Mean Corpuscular Hemoglobin 19.5 pg (27.0-31.0); Mean Corpuscular Volume 63.9 fL (78.0-98.0); Mean Platelet Volume 12.2 fL (7.4-10.4); Platelet Count 265 thou/uL (130-400); RBC Distribution Width 17.5 % (11.5-14.5); Red Blood Cell (RBC) Count 3.69 mill/uL (4.70-6.10); Reflex for Review?? YES; White Blood Cell (WBC) Count 4.7 thou/uL (4.8-10.8)
[2020-10-21 17:16] LABS: CKMB 3.8 ng/mL (0-6.6)
[2020-10-21] MEDS ORDERED: Dextrose 50% Abboject 50 ML SYRINGE SLOW IVP PRN (19:00)
[2020-10-21] MEDS ORDERED: Dextrose 5% in Water 1,000 ML IV PRN (19:00)
[2020-10-21] MEDS ORDERED: Acetaminophen 325 MG TAB PO PRN (19:00)
[2020-10-21] MEDS ORDERED: Furosemide 20 MG/2 ML VIAL ONE (19:05)
[2020-10-21] MEDS ORDERED: Potassium Chloride 20 MEQ TAB ONE (19:05)
[2020-10-21 20:40] LABS: Hemoglobin A1c 5.6 % (4.0-6.0)
[2020-10-21 20:55] LABS: Iron 13 ug/dL (65-175); Iron Binding Capacity, Total 413 mcg/dL (261-462)
[2020-10-21 21:00] LABS: Troponin I 0.041 ng/mL (< 0.028)
[2020-10-21 21:13] VITALS: BMI 35.6
[2020-10-22 00:22] LABS: Creatinine, Urine 38.12 mg/dL (63-166)
[2020-10-22 05:28] LABS: SARS-CoV-2 PCR by NAA Not Detected (NotDetected)
[2020-10-22 05:57] LABS: Anion Gap 19 mmol/L (10-20); BUN (Urea Nitrogen) 37 mg/dL (8.4-25.7); Calc. Creatinine Clearance 70 mL/min (70-130); Calcium 8.3 mg/dL (7.8-10.44); Carbon Dioxide 19 mmol/L (23-31); Chloride 97 mmol/L (98-107); Glucose 143 mg/dL (80-115); Magnesium 1.5 mg/dL (1.6-2.6); Potassium 3.3 mmol/L (3.5-5.1); Sodium 132 mmol/L (136-145)
[2020-10-22] MEDS: Furosemide 40 MG/4 ML VIAL SLOW IVP SCH ×2 (06:01→14:45)
[2020-10-22] MEDS: HumaLOG 300 UNITS/3 ML VIAL SC PRN ×2 (06:06→11:41)
[2020-10-22 06:10] LABS: Mean Corpuscular HGB CONC 30.9 g/dL (32.0-36.0); Mean Corpuscular Hemoglobin 20.2 pg (27.0-31.0); Mean Corpuscular Volume 65.3 fL (78.0-98.0); Mean Platelet Volume 6.2 fL (7.4-10.4); Platelet Count 273 thou/uL (130-400); RBC Distribution Width 18.8 % (11.5-14.5); Red Blood Cell (RBC) Count 3.96 mill/uL (4.70-6.10); White Blood Cell (WBC) Count 5.4 thou/uL (4.8-10.8)
[2020-10-22 06:12] LABS: Anisocytosis SLIGHT = 6-15 cells (100X) (0-5/hpf); Band 5 % (5-11); Eosinophils 2 % (0-10); Hypochromia SLIGHT = 6-15 cells (100X) (0-5/hpf); Lymphocytes 17 % (21-51); MDiff Complete? YES; Microcytosis SLIGHT = 6-15 cells (100X) (0-5/hpf); Monocytes 2 % (0-10); Neutrophil 74 % (42-75)
[2020-10-22] MEDS ORDERED: Potassium Chloride 20 MEQ TAB PO SCH ×2 (07:00→17:00)
[2020-10-22] MEDS ORDERED: Magnesium Sulfate 2 GM in Sodium Chloride 0.9% 100 ML IVPB SCH (07:00)
[2020-10-22] MEDS ORDERED: Magnesium 2 GM/50 ML 2 GM in Premix Bag 1 BAG IVPB SCH (07:00)
[2020-10-22] MEDS ORDERED: glyBURIDE 5 MG TAB PO SCH (09:00)
[2020-10-22] MEDS ORDERED: FLU VACC QS2020-21(6MOS UP)/PF 60 MCG/0.5 ML SYRINGE IM ONE (09:00)
[2020-10-22] MEDS: Aspirin Chewable 81 MG TAB PO SCH (09:31)
[2020-10-22] MEDS: metFORMIN 500 MG TAB PO SCH ×2 (09:32→17:40)
[2020-10-22] MEDS: Midodrine HCl 5 MG TAB PO SCH ×3 (09:32→20:09)
[2020-10-22] MEDS: Spironolactone 25 MG TAB PO SCH ×2 (09:32→20:09)
[2020-10-22] MEDS: DULoxetine 30 MG CAP PO SCH (09:32)
[2020-10-22] MEDS ORDERED: Iron, Sodium Ferric Gluconate 250 MG in Sodium Chloride 0.9% 100 ML IVPB SCH (11:00)
[2020-10-22] MEDS: Rosuvastatin 20 MG TAB PO SCH (20:09)
[2020-10-22 21:25] LABS: Anion Gap 15 mmol/L (10-20); BUN (Urea Nitrogen) 38 mg/dL (8.4-25.7); Calc. Creatinine Clearance 70 mL/min (70-130); Calcium 8.8 mg/dL (7.8-10.44); Carbon Dioxide 24 mmol/L (23-31); Chloride 98 mmol/L (98-107); Glucose 139 mg/dL (80-115); Magnesium 1.8 mg/dL (1.6-2.6); Potassium 4.1 mmol/L (3.5-5.1); Sodium 133 mmol/L (136-145)
[2020-10-22] MEDS: Iron, Sodium Ferric Gluconate 250 MG in Sodium Chloride 0.9% 100 ML IVPB SCH (23:05)
[2020-10-23] MEDS: Furosemide 40 MG/4 ML VIAL SLOW IVP SCH ×2 (06:00→14:35)
[2020-10-23 06:35] LABS: Anion Gap 18 mmol/L (10-20); BUN (Urea Nitrogen) 37 mg/dL (8.4-25.7); Calc. Creatinine Clearance 71 mL/min (70-130); Calcium 8.5 mg/dL (7.8-10.44); Carbon Dioxide 21 mmol/L (23-31); Chloride 98 mmol/L (98-107); Glucose 103 mg/dL (80-115); Potassium 3.2 mmol/L (3.5-5.1); Sodium 134 mmol/L (136-145)
[2020-10-23 08:15] LABS: Band 4 % (5-11); Eosinophils 1 % (0-10); Hemoglobin 7.9 g/dL (14.0-18.0); Hypochromia SLIGHT = 6-15 cells (100X) (0-5/hpf); Lymphocytes 14 % (21-51); MDiff Complete? YES; Mean Corpuscular HGB CONC 30.7 g/dL (32.0-36.0); Mean Corpuscular Hemoglobin 20.1 pg (27.0-31.0); Mean Corpuscular Volume 65.4 fL (78.0-98.0); Mean Platelet Volume 11.3 fL (7.4-10.4); Microcytosis SLIGHT = 6-15 cells (100X) (0-5/hpf); Monocytes 4 % (0-10); Neutrophil 77 % (42-75); Platelet Count 285 thou/uL (130-400); Poikilocytosis SLIGHT = 6-15 cells (100X) (0-5/hpf); RBC Distribution Width 18.9 % (11.5-14.5); Red Blood Cell (RBC) Count 3.93 mill/uL (4.70-6.10); White Blood Cell (WBC) Count 5.8 thou/uL (4.8-10.8)
[2020-10-23] MEDS: Ferrous Sulfate 325 MG TAB PO SCH (08:35)
[2020-10-23] MEDS: DULoxetine 30 MG CAP PO SCH (08:35)
[2020-10-23] MEDS: Aspirin Chewable 81 MG TAB PO SCH (08:35)
[2020-10-23] MEDS: metFORMIN 500 MG TAB PO SCH ×2 (08:35→16:05)
[2020-10-23] MEDS: Potassium Chloride 20 MEQ TAB PO SCH ×2 (08:35→16:05)
[2020-10-23] MEDS: Spironolactone 25 MG TAB PO SCH ×2 (08:36→20:26)
[2020-10-23] MEDS: Midodrine HCl 5 MG TAB PO SCH ×3 (08:36→20:25)
[2020-10-23] MEDS: Iron, Sodium Ferric Gluconate 250 MG in Sodium Chloride 0.9% 100 ML IVPB SCH (10:43)
[2020-10-23] MEDS ORDERED: Potassium Chloride 20 MEQ TAB PO SCH (12:00)
[2020-10-23] MEDS: HumaLOG 300 UNITS/3 ML VIAL SC PRN (12:03)
[2020-10-23 16:19] LABS: Hemoglobin 8.2 g/dL (14.0-18.0)
[2020-10-23] MEDS: Rosuvastatin 20 MG TAB PO SCH (20:26)
[2020-10-24 04:54] LABS: Anion Gap 16 mmol/L (10-20); BUN (Urea Nitrogen) 37 mg/dL (8.4-25.7); Calc. Creatinine Clearance 75 mL/min (70-130); Calcium 8.5 mg/dL (7.8-10.44); Carbon Dioxide 22 mmol/L (23-31); Chloride 98 mmol/L (98-107); Glucose 102 mg/dL (80-115); Potassium 3.7 mmol/L (3.5-5.1); Sodium 132 mmol/L (136-145)
[2020-10-24] MEDS: Senokot S 8.6-50 MG TAB PO PRN ×2 (05:06→20:35)
[2020-10-24] MEDS: Furosemide 40 MG/4 ML VIAL SLOW IVP SCH ×2 (05:06→12:35)
[2020-10-24 05:21] LABS: Anisocytosis SLIGHT = 6-15 cells (100X) (0-5/hpf); Hemoglobin 8.1 g/dL (14.0-18.0); Hypochromia SLIGHT = 6-15 cells (100X) (0-5/hpf); MDiff Complete? YES; Mean Corpuscular HGB CONC 30.8 g/dL (32.0-36.0); Microcytosis SLIGHT = 6-15 cells (100X) (0-5/hpf); Platelet Count 299 thou/uL (130-400); RBC Distribution Width 18.9 % (11.5-14.5); Red Blood Cell (RBC) Count 4.06 mill/uL (4.70-6.10); White Blood Cell (WBC) Count 7.6 thou/uL (4.8-10.8)
[2020-10-24] MEDS ORDERED: Melatonin 3 MG TAB PO PRN (08:06)
[2020-10-24] MEDS ORDERED: diphenhydrAMINE 12.5 MG/5 ML UDCUP PO PRN (08:06)
[2020-10-24] MEDS: DULoxetine 30 MG CAP PO SCH (09:20)
[2020-10-24] MEDS: metFORMIN 500 MG TAB PO SCH ×2 (09:20→15:55)
[2020-10-24] MEDS: Midodrine HCl 5 MG TAB PO SCH ×3 (09:20→20:34)
[2020-10-24] MEDS: Spironolactone 25 MG TAB PO SCH ×2 (09:23→20:35)
[2020-10-24] MEDS: Aspirin Chewable 81 MG TAB PO SCH (09:23)
[2020-10-24] MEDS: Ferrous Sulfate 325 MG TAB PO SCH (09:23)
[2020-10-24] MEDS: Polyethylene Glycol 3350 17 GM Packet PO SCH (09:24)
[2020-10-24] MEDS: Potassium Chloride 20 MEQ TAB PO SCH ×2 (09:24→15:55)
[2020-10-24] MEDS ORDERED: Metolazone 5 MG TAB PO SCH (13:30)
[2020-10-24] MEDS: Rosuvastatin 20 MG TAB PO SCH (20:35)
[2020-10-25] MEDS: Furosemide 40 MG/4 ML VIAL SLOW IVP SCH (05:22)
[2020-10-25 05:59] LABS: Anisocytosis MODERATE=16-30 cells (100X) (0-5/hpf); Band 9 % (5-11); Eosinophils 2 % (0-10); Hemoglobin 7.8 g/dL (14.0-18.0); Hypochromia SLIGHT = 6-15 cells (100X) (0-5/hpf); Lymphocytes 7 % (21-51); MDiff Complete? YES; Mean Corpuscular HGB CONC 29.7 g/dL (32.0-36.0); Mean Corpuscular Hemoglobin 19.2 pg (27.0-31.0); Mean Corpuscular Volume 64.8 fL (78.0-98.0); Monocytes 11 % (0-10); Neutrophil 71 % (42-75); Platelet Count 292 thou/uL (130-400); Red Blood Cell (RBC) Count 4.03 mill/uL (4.70-6.10); White Blood Cell (WBC) Count 6.5 thou/uL (4.8-10.8)
[2020-10-25 09:22] LABS: Anion Gap 15 mmol/L (10-20); BUN (Urea Nitrogen) 31 mg/dL (8.4-25.7); Calc. Creatinine Clearance 71 mL/min (70-130); Calcium 8.9 mg/dL (7.8-10.44); Carbon Dioxide 24 mmol/L (23-31); Chloride 96 mmol/L (98-107); Glucose 115 mg/dL (80-115); Sodium 131 mmol/L (136-145)
[2020-10-25] MEDS: Ferrous Sulfate 325 MG TAB PO SCH (10:24)
[2020-10-25] MEDS: metFORMIN 500 MG TAB PO SCH ×2 (10:24→17:12)
[2020-10-25] MEDS: Potassium Chloride 20 MEQ TAB PO SCH ×2 (10:24→17:12)
[2020-10-25] MEDS: DULoxetine 30 MG CAP PO SCH (10:25)
[2020-10-25] MEDS: Midodrine HCl 5 MG TAB PO SCH ×3 (10:25→18:30)
[2020-10-25] MEDS: Aspirin Chewable 81 MG TAB PO SCH (10:25)
[2020-10-25] MEDS: Polyethylene Glycol 3350 17 GM Packet PO SCH (10:26)
[2020-10-25] MEDS: Spironolactone 25 MG TAB PO SCH (10:27)
[2020-10-25] MEDS ORDERED: Furosemide 40 MG TAB PO SCH (14:00)
[2020-10-25] MEDS ORDERED: Furosemide 80 MG TAB PO SCH (15:00)
[2020-10-25 15:28] VITALS: TEMP 98.5
[2020-10-25 16:59] LABS: Hemoglobin 8.6 g/dL (14.0-18.0)
[2020-10-25 19:15] VITALS: BP 111/79
== END 2020-10-25 19:07 | disposition home or self-care (01) | DRG 292 ==
LOC: ERS 15:58 → 2SW 18:14 → OBSVTOIN 10-22 14:41 → 2NO 10-23 12:57
PROVIDERS: ADMIT Emergency Medicine; ATTEND Emergency Medicine
PROC: 30233N1 Transfusion of Nonautologous Red Blood Cells into Peripheral Vein, Percutaneous Approach (ICD-10-PCS; principal; 2020-10-25)
DX: I50.23 Acute on chronic systolic (congestive) heart failure (principal); N17.9 Acute kidney failure, unspecified; I42.9 Cardiomyopathy, unspecified; E11.51 Type 2 diabetes mellitus with diabetic peripheral angiopathy without gangrene; E11.22 Type 2 diabetes mellitus with diabetic chronic kidney disease; Z66 Do not resuscitate; Z20.822 Contact with and (suspected) exposure to COVID-19; I25.10 Atherosclerotic heart disease of native coronary artery without angina pectoris; K21.9 Gastro-esophageal reflux disease without esophagitis; D63.1 Anemia in chronic kidney disease; E87.6 Hypokalemia; R29.6 Repeated falls; E78.5 Hyperlipidemia, unspecified; N18.2 Chronic kidney disease, stage 2 (mild); Z79.01 Long term (current) use of anticoagulants; Z79.84 Long term (current) use of oral hypoglycemic drugs; Z79.82 Long term (current) use of aspirin; Z79.899 Other long term (current) drug therapy; Z95.5 Presence of coronary angioplasty implant and graft; Z87.891 Personal history of nicotine dependence; I25.2 Old myocardial infarction; D50.9 Iron deficiency anemia, unspecified; T45.525A Adverse effect of antithrombotic drugs, initial encounter; Z91.19 Patient's noncompliance with other medical treatment and regimen
CPT/HCPCS: 36415; 36416; 36430; 71045; 80048; 80053; 82553; 82570; 82728; 83036; 83540; 83550; 83690; 83735; 83880; 84100; 84484; 84540; 85007; 85025; 85027; 85060; 86850; 86900; 86901; 87635; 93005; 96365; 96366; 96374; 96375; 96376; G0378; J1815; J1940; J2916; J3475; J3490; P9016; U0003; U0005

== ENCOUNTER 2021-01-17 10:17 | Inpatient (IN) | payer MEDICARE ==
[~2021-01-17 10:17] MED LIST changes: +Heparin 10,000 UNITS/ 10 ML VIAL ONE; -Iopamidol-370 76% 500 ML 1 ML ONE
[2021-01-17] MEDS ORDERED: Calcium Gluc 4.6 MEQ/10 ML (100 MG/ML) ONE (10:24)
[2021-01-17] MEDS ORDERED: Sodium Bicarb 50 MEQ/50 ML Abboject 8.4% SYRINGE ONE (10:27)
[2021-01-17] MEDS ORDERED: Insulin Regular 300 UNITS/3 ML VIAL ONE (10:27)
[2021-01-17] MEDS ORDERED: Dextrose 50% Abboject 50 ML SYRINGE ONE (10:27)
[2021-01-17 10:32] LABS: Actual Bicarbonate (HCO3a) 3.3 mEq/L (22-28); Analyzer IN Cardio ER; Base Excess (BEa) -24.9 mEq/L (-2.0 to +3.0); CO2 Tension 11.8 mmHg (35.0-45.0); Calcium, Ionized (arterial) 0.99 mmol/L (1.12-1.30); Carboxyhemoglobin (COHb) 0.3 gm% (0.0-3.0); Hemoglobin (Hb) 12.2 g/dL (14.0-18.0); O2 Tension (PaO2), arterial 119.7 mmHg (> 80.0); Potassium - ABG Lab 8.36 mmol/L (3.70-5.30); pH, Arterial 7.06 (7.35-7.45)
[2021-01-17 10:33] LABS: Puncture Site RBA
[2021-01-17 10:39] LABS: #Lymphocytes 0.7 thou/uL (1.20-3.40); #Monocytes 0.5 thou/uL (0.11-0.59); #Neutrophils 7.7 thou/uL (1.40-6.50); %Basophils 0.2 % (0.0-1.0); %Eosinophils 0.3 % (0.0-10.0); %Lymphocytes 7.8 % (21.0-51.0); %Monocytes 5.1 % (0.0-10.0); %Neutrophils 86.7 % (42.0-75.0); Hemoglobin 12.1 g/dL (14.0-18.0); Mean Corpuscular HGB CONC 31.6 g/dL (32.0-36.0); Mean Corpuscular Hemoglobin 25.5 pg (27.0-31.0); Mean Corpuscular Volume 80.8 fL (78.0-98.0); Mean Platelet Volume 10.6 fL (7.4-10.4); Platelet Count 363 thou/uL (130-400); RBC Distribution Width 19.8 % (11.5-14.5); Red Blood Cell (RBC) Count 4.73 mill/uL (4.70-6.10); White Blood Cell (WBC) Count 8.8 thou/uL (4.8-10.8)
[2021-01-17 10:59] LABS: ALT (SGPT) 29 U/L (8-55); AST (SGOT) 58 U/L (5-34); Albumin 4.1 g/dL (3.4-4.8); Alkaline Phosphatase 618 U/L (40-110); BUN (Urea Nitrogen) 89 mg/dL (8.4-25.7); Calc. Creatinine Clearance 0 mL/min (70-130); Calcium 7.6 mg/dL (7.8-10.44); Chloride 97 mmol/L (98-107); Globulin 3.8 g/dL (2.4-3.5); Glucose 174 mg/dL (80-115); Lipase 593 U/L (8-78); Protein, Total 7.9 g/dL (5.8-8.1); Sodium 129 mmol/L (136-145)
[2021-01-17 11:03] LABS: Carbon Dioxide Less than 8 mmol/L (23-31); Potassium 8.8 mmol/L (3.5-5.1)
[2021-01-17 11:20] LABS: CKMB 3.9 ng/mL (0-6.6)
[2021-01-17 13:21] LABS: Hep B Surf Ag Non-Reactive S/CO (NonReactive)
[2021-01-17 14:08] LABS: Lactic Acid 10.5 mmol/L (0.5-2.2)
[2021-01-17] MEDS ORDERED: Dextrose 5% in Water 1,000 ML IV PRN (14:17)
[2021-01-17] MEDS ORDERED: Dextrose 50% Abboject 50 ML SYRINGE SLOW IVP PRN (14:17)
[2021-01-17] MEDS: Midodrine HCl 5 MG TAB PO SCH ×2 (15:43→20:26)
[2021-01-17] MEDS: Acetaminophen/Codeine 30-300mg Tablet PO PRN (17:45)
[2021-01-17 19:44] LABS: SARS-CoV-2 PCR by NAA Not Detected (NotDetected)
[2021-01-17] MEDS: Sodium Bicarbonate 150 MEQ in Dextrose 5% in Water 1,000 ML IV SCH (20:22)
[2021-01-17] MEDS: Aspirin 81 mg Enteric Coated Tablet PO SCH (20:22)
[2021-01-17] MEDS ORDERED: Gabapentin 300 MG CAP PO SCH (21:00)
[2021-01-17 21:32] LABS: Anion Gap 31 mmol/L (10-20); BUN (Urea Nitrogen) 65 mg/dL (8.4-25.7); Calc. Creatinine Clearance 12 mL/min (70-130); Calcium 7.5 mg/dL (7.8-10.44); Chloride 97 mmol/L (98-107); Glucose 101 mg/dL (80-115); Sodium 129 mmol/L (136-145)
[2021-01-17 21:33] LABS: Lactic Acid 8.2 mmol/L (0.5-2.2)
[2021-01-17] MEDS: Ondansetron PF 4 MG/2 ML Vial IVP PRN (21:34)
[2021-01-17 21:39] LABS: Carbon Dioxide 8 mmol/L (23-31); Potassium 7.1 mmol/L (3.5-5.1)
[2021-01-17] MEDS ORDERED: Dextrose 50% Abboject 50 ML SYRINGE SLOW IVP SCH (22:00)
[2021-01-17] MEDS ORDERED: Insulin Regular 300 UNITS/3 ML VIAL IVP SCH (22:00)
[2021-01-18 04:24] LABS: Hemoglobin 9.4 g/dL (14.0-18.0); Mean Corpuscular HGB CONC 32.1 g/dL (32.0-36.0); Mean Corpuscular Hemoglobin 25.2 pg (27.0-31.0); Mean Corpuscular Volume 78.4 fL (78.0-98.0); Mean Platelet Volume 11.2 fL (7.4-10.4); Platelet Count 153 thou/uL (130-400); RBC Distribution Width 19.3 % (11.5-14.5); Red Blood Cell (RBC) Count 3.75 mill/uL (4.70-6.10); White Blood Cell (WBC) Count 4.2 thou/uL (4.8-10.8)
[2021-01-18 04:35] LABS: Lactic Acid 7.9 mmol/L (0.5-2.2)
[2021-01-18 04:36] LABS: Anion Gap 29 mmol/L (10-20); BUN (Urea Nitrogen) 69 mg/dL (8.4-25.7); Calc. Creatinine Clearance 12 mL/min (70-130); Calcium 7.2 mg/dL (7.8-10.44); Carbon Dioxide 14 mmol/L (23-31); Chloride 95 mmol/L (98-107); Glucose 93 mg/dL (80-115); Potassium 6.5 mmol/L (3.5-5.1); Sodium 131 mmol/L (136-145)
[2021-01-18] MEDS ORDERED: Dextrose 50% Abboject 50 ML SYRINGE SLOW IVP SCH (08:00)
[2021-01-18] MEDS ORDERED: Insulin Regular 300 UNITS/3 ML VIAL IVP SCH (08:00)
[2021-01-18] MEDS ORDERED: GUAIFENESIN SF SOLN 200 MG/10 ML UDCUP PO PRN (08:08)
[2021-01-18] MEDS ORDERED: Sodium Chloride 0.65% Nasal 44 ML BOT EA NARE PRN (08:08)
[2021-01-18] MEDS ORDERED: Calcium Carbonate 500 MG ChewTAB PO PRN (08:08)
[2021-01-18] MEDS ORDERED: Cepastat Lozenges 1 LOZ PO PRN (08:08)
[2021-01-18] MEDS ORDERED: Loratadine 10 MG TAB PO PRN (08:08)
[2021-01-18] MEDS ORDERED: Ondansetron ODT 4 MG TAB PO PRN (08:08)
[2021-01-18] MEDS ORDERED: hydrALAZINE 20 MG/ML VIAL SLOW IVP PRN (08:08)
[2021-01-18] MEDS ORDERED: Loperamide HCl 2 MG CAP PO PRN (08:08)
[2021-01-18] MEDS ORDERED: Bisacodyl 5 MG TAB PO PRN (08:08)
[2021-01-18] MEDS ORDERED: Senokot S 8.6-50 MG TAB PO PRN (08:08)
[2021-01-18] MEDS ORDERED: Gabapentin 300 MG CAP PO SCH (09:00)
[2021-01-18] MEDS ORDERED: Heparin 10,000 UNITS/ 10 ML VIAL ONE (09:05)
[2021-01-18] MEDS: Ondansetron PF 4 MG/2 ML Vial IVP PRN ×2 (12:13→17:35)
[2021-01-18] MEDS: Gabapentin 100 MG CAP PO SCH ×3 (12:14→20:34)
[2021-01-18] MEDS: Ferrous Sulfate 325 MG TAB PO SCH (12:14)
[2021-01-18] MEDS: Heparin 5,000 UNITS/ML VIAL SC SCH ×2 (12:15→20:34)
[2021-01-18] MEDS: Midodrine HCl 5 MG TAB PO SCH ×3 (12:15→20:34)
[2021-01-18] MEDS: DULoxetine 30 MG CAP PO SCH (12:19)
[2021-01-18] MEDS: Sodium Bicarbonate 150 MEQ in Dextrose 5% in Water 1,000 ML IV SCH ×2 (12:20→20:35)
[2021-01-18] MEDS ORDERED: VANCOMYCIN 1.25 GM/250 ML BAG 1.25 GM in Premix Bag 1 BAG IVPB SCH (13:00)
[2021-01-18] MEDS ORDERED: Vancomycin 1.5 GRAM/300 ML BAG 1.5 GM in Premix Bag 1 BAG IVPB SCH (13:00)
[2021-01-18] MEDS ORDERED: HOLD VANCOMYCIN FOR LEVEL >20 FS SCH (13:00)
[2021-01-18] MEDS ORDERED: Vancomycin 1 GM in Premix Bag 1 BAG IVPB SCH (13:00)
[2021-01-18] MEDS ORDERED: Vancomycin HCl 500 MG in Sodium Chloride 0.9% 100 ML IVPB SCH (13:00)
[2021-01-18] MEDS: Piperacillin/Tazobactam 2.25 GM in Sodium Chloride 0.9% 100 ML IVPB SCH ×2 (13:01→20:35)
[2021-01-18] MEDS: HYDROcodone/Acetaminophen 5/325 mg Tablet PO PRN (18:41)
[2021-01-18] MEDS ORDERED: Dextrose 50% Abboject 50 ML SYRINGE SLOW IVP PRN (19:07)
[2021-01-18] MEDS ORDERED: Dextrose 5% in Water 1,000 ML IV PRN (19:07)
[2021-01-18] MEDS: Aspirin 81 mg Enteric Coated Tablet PO SCH (20:34)
[2021-01-18] MEDS: Rosuvastatin 10 MG TAB PO SCH (20:34)
[2021-01-18] MEDS ORDERED: Rosuvastatin 20 MG TAB PO SCH (21:00)
[2021-01-19] MEDS: Piperacillin/Tazobactam 2.25 GM in Sodium Chloride 0.9% 100 ML IVPB SCH ×2 (04:58→23:06)
[2021-01-19] MEDS: HYDROcodone/Acetaminophen 5/325 mg Tablet PO PRN ×4 (05:04→21:19)
[2021-01-19 05:28] LABS: #Lymphocytes 0.5 thou/uL (1.20-3.40); #Monocytes 0.3 thou/uL (0.11-0.59); #Neutrophils 2.4 thou/uL (1.40-6.50); %Basophils 0.7 % (0.0-1.0); %Eosinophils 0.8 % (0.0-10.0); %Lymphocytes 14.6 % (21.0-51.0); %Monocytes 10.5 % (0.0-10.0); %Neutrophils 73.5 % (42.0-75.0); Hemoglobin 9.2 g/dL (14.0-18.0); Mean Corpuscular HGB CONC 32.5 g/dL (32.0-36.0); Mean Corpuscular Volume 76.9 fL (78.0-98.0); Mean Platelet Volume 11.9 fL (7.4-10.4); Platelet Count 122 thou/uL (130-400); RBC Distribution Width 19.3 % (11.5-14.5); Red Blood Cell (RBC) Count 3.69 mill/uL (4.70-6.10); White Blood Cell (WBC) Count 3.2 thou/uL (4.8-10.8)
[2021-01-19 05:53] LABS: Lactic Acid 3.5 mmol/L (0.5-2.2)
[2021-01-19 06:05] LABS: ALT (SGPT) 31 U/L (8-55); AST (SGOT) 71 U/L (5-34); Albumin 3.1 g/dL (3.4-4.8); Alkaline Phosphatase 587 U/L (40-110); Anion Gap 13 mmol/L (10-20); BUN (Urea Nitrogen) 45 mg/dL (8.4-25.7); Bilirubin, Total 0.7 mg/dL (0.2-1.2); Calc. Creatinine Clearance 17 mL/min (70-130); Calcium 6.9 mg/dL (7.8-10.44); Carbon Dioxide 29 mmol/L (23-31); Chloride 95 mmol/L (98-107); Globulin 2.7 g/dL (2.4-3.5); Glucose 110 mg/dL (80-115); Magnesium 1.7 mg/dL (1.6-2.6); Phosphorus 4.4 mg/dL (2.3-4.7); Protein, Total 5.8 g/dL (5.8-8.1); Sodium 133 mmol/L (136-145)
[2021-01-19] MEDS: Midodrine HCl 5 MG TAB PO SCH ×3 (08:48→21:20)
[2021-01-19] MEDS: Gabapentin 100 MG CAP PO SCH ×3 (08:48→21:20)
[2021-01-19] MEDS ORDERED: Heparin 10,000 UNITS/ 10 ML VIAL ONE (08:53)
[2021-01-19] MEDS: Heparin 5,000 UNITS/ML VIAL SC SCH ×2 (09:16→21:21)
[2021-01-19] MEDS: DULoxetine 30 MG CAP PO SCH (09:19)
[2021-01-19] MEDS: Ferrous Sulfate 325 MG TAB PO SCH ×2 (09:21→15:59)
[2021-01-19] MEDS ORDERED: Piperacillin/Tazobactam 2.25 GM in Sodium Chloride 0.9% 100 ML IVPB SCH (16:00)
[2021-01-19] MEDS: Vancomycin HCl 750 MG in Sodium Chloride 0.9% 250 ML 250 ML IVPB SCH (19:02)
[2021-01-19] MEDS: Rosuvastatin 10 MG TAB PO SCH (21:20)
[2021-01-19] MEDS: Aspirin 81 mg Enteric Coated Tablet PO SCH (21:20)
[2021-01-19] MEDS: Sodium Bicarbonate 150 MEQ in Dextrose 5% in Water 1,000 ML IV SCH (22:32)
[2021-01-20] MEDS: HYDROcodone/Acetaminophen 5/325 mg Tablet PO PRN ×5 (02:08→21:08)
[2021-01-20] MEDS ORDERED: Lidocaine 1% (PF) 30 ML VIAL ONE (06:12)
[2021-01-20] MEDS: Gabapentin 100 MG CAP PO SCH ×3 (09:06→21:07)
[2021-01-20] MEDS: DULoxetine 30 MG CAP PO SCH (09:06)
[2021-01-20] MEDS: Piperacillin/Tazobactam 2.25 GM in Sodium Chloride 0.9% 100 ML IVPB SCH ×2 (09:07→22:12)
[2021-01-20] MEDS: Midodrine HCl 5 MG TAB PO SCH ×3 (09:07→21:09)
[2021-01-20] MEDS: Heparin 5,000 UNITS/ML VIAL SC SCH ×2 (09:07→21:07)
[2021-01-20] MEDS: Ferrous Sulfate 325 MG TAB PO SCH (09:07)
[2021-01-20] MEDS ORDERED: Iopamidol 370 76% 100 ML VIAL ONE (11:50)
[2021-01-20] MEDS: HumaLOG 300 UNITS/3 ML VIAL SC PRN ×2 (17:09→21:11)
[2021-01-20] MEDS: Rosuvastatin 10 MG TAB PO SCH (21:07)
[2021-01-20] MEDS: Aspirin 81 mg Enteric Coated Tablet PO SCH (21:07)
[2021-01-21] MEDS: HYDROcodone/Acetaminophen 5/325 mg Tablet PO PRN ×3 (00:44→18:11)
[2021-01-21 05:31] LABS: #Eosinphils 0.2 thou/uL (0.0-0.7); #Lymphocytes 0.7 thou/uL (1.20-3.40); #Monocytes 0.5 thou/uL (0.11-0.59); #Neutrophils 2.9 thou/uL (1.40-6.50); %Eosinophils 4.6 % (0.0-10.0); %Lymphocytes 16.2 % (21.0-51.0); %Monocytes 11.4 % (0.0-10.0); %Neutrophils 66.8 % (42.0-75.0); Hemoglobin 9.9 g/dL (14.0-18.0); Mean Corpuscular HGB CONC 32.3 g/dL (32.0-36.0); Mean Corpuscular Hemoglobin 25.4 pg (27.0-31.0); Mean Corpuscular Volume 78.4 fL (78.0-98.0); Mean Platelet Volume 12.1 fL (7.4-10.4); Platelet Count 116 thou/uL (130-400); RBC Distribution Width 19.5 % (11.5-14.5); Red Blood Cell (RBC) Count 3.91 mill/uL (4.70-6.10); White Blood Cell (WBC) Count 4.3 thou/uL (4.8-10.8)
[2021-01-21 05:50] LABS: ALT (SGPT) 36 U/L (8-55); AST (SGOT) 88 U/L (5-34); Albumin 2.8 g/dL (3.4-4.8); Alkaline Phosphatase 751 U/L (40-110); Anion Gap 15 mmol/L (10-20); BUN (Urea Nitrogen) 36 mg/dL (8.4-25.7); Bilirubin, Total 0.7 mg/dL (0.2-1.2); Calc. Creatinine Clearance 20 mL/min (70-130); Calcium 7.3 mg/dL (7.8-10.44); Carbon Dioxide 26 mmol/L (23-31); Chloride 96 mmol/L (98-107); Globulin 2.7 g/dL (2.4-3.5); Glucose 123 mg/dL (80-115); Potassium 4.2 mmol/L (3.5-5.1); Protein, Total 5.5 g/dL (5.8-8.1); Sodium 133 mmol/L (136-145)
[2021-01-21 08:16] LABS: Vancomycin, Random 12.9 ug/mL (See Comment)
[2021-01-21] MEDS ORDERED: Heparin 10,000 UNITS/ 10 ML VIAL ONE (08:54)
[2021-01-21] MEDS: Vancomycin HCl 750 MG in Sodium Chloride 0.9% 250 ML 250 ML IVPB SCH (10:30)
[2021-01-21] MEDS ORDERED: EPINEPHrine 1 MG/ML AMP ONE (13:44)
[2021-01-21] MEDS ORDERED: Bupivacaine PF 0.5% 30 ML VIAL ONE (13:44)
[2021-01-21] MEDS ORDERED: Dexamethasone 4 mg/ml Vial ONE (13:44)
[2021-01-21] MEDS ORDERED: Protamine Sulfate 50 MG/5 ML VIAL ONE (13:44)
[2021-01-21] MEDS ORDERED: Heparin 5,000 UNITS/ML VIAL ONE (13:44)
[2021-01-21] MEDS ORDERED: Fentanyl 100 MCG/2 ML VIAL ONE (13:48)
[2021-01-21] MEDS ORDERED: Dexamethasone 20 MG/5 ML VIAL ONE (14:19)
[2021-01-21] MEDS ORDERED: Ondansetron PF 4 MG/2 ML Vial ONE (14:19)
[2021-01-21] MEDS ORDERED: PROPOFOL 200 MG/20 ML VIAL ONE (14:19)
[2021-01-21] MEDS: Gabapentin 100 MG CAP PO SCH ×3 (16:21→20:05)
[2021-01-21] MEDS: Midodrine HCl 5 MG TAB PO SCH ×3 (16:22→20:06)
[2021-01-21] MEDS: Ferrous Sulfate 325 MG TAB PO SCH (16:22)
[2021-01-21] MEDS: DULoxetine 30 MG CAP PO SCH (16:22)
[2021-01-21] MEDS: Heparin 5,000 UNITS/ML VIAL SC SCH ×2 (16:23→20:06)
[2021-01-21] MEDS: Piperacillin/Tazobactam 3.375 GM, Admixture Fee 1 EACH in Sodium Chloride 0.9% 100 ML IVPB SCH ×2 (16:23→21:35)
[2021-01-21] MEDS: HumaLOG 300 UNITS/3 ML VIAL SC PRN ×2 (17:36→20:56)
[2021-01-21] MEDS: Aspirin 81 mg Enteric Coated Tablet PO SCH (20:05)
[2021-01-21] MEDS: Rosuvastatin 10 MG TAB PO SCH (20:06)
[2021-01-21] MEDS: Acetaminophen/Codeine 30-300mg Tablet PO PRN (21:31)
[2021-01-22] MEDS: Acetaminophen/Codeine 30-300mg Tablet PO PRN (01:48)
[2021-01-22 04:52] LABS: #Lymphocytes 0.2 thou/uL (1.20-3.40); #Monocytes 0.2 thou/uL (0.11-0.59); #Neutrophils 2.7 thou/uL (1.40-6.50); %Basophils 0.2 % (0.0-1.0); %Eosinophils 0.2 % (0.0-10.0); %Monocytes 6.6 % (0.0-10.0); %Neutrophils 87.1 % (42.0-75.0); Hemoglobin 9.8 g/dL (14.0-18.0); Mean Corpuscular HGB CONC 33.1 g/dL (32.0-36.0); Mean Corpuscular Hemoglobin 25.9 pg (27.0-31.0); Mean Corpuscular Volume 78.4 fL (78.0-98.0); Mean Platelet Volume 12.2 fL (7.4-10.4); Platelet Count 125 thou/uL (130-400); RBC Distribution Width 19.8 % (11.5-14.5); Red Blood Cell (RBC) Count 3.78 mill/uL (4.70-6.10); White Blood Cell (WBC) Count 3.1 thou/uL (4.8-10.8)
[2021-01-22 05:15] LABS: ALT (SGPT) 36 U/L (8-55); AST (SGOT) 85 U/L (5-34); Albumin 2.9 g/dL (3.4-4.8); Alkaline Phosphatase 835 U/L (40-110); Anion Gap 16 mmol/L (10-20); BUN (Urea Nitrogen) 27 mg/dL (8.4-25.7); Bilirubin, Total 0.6 mg/dL (0.2-1.2); Calc. Creatinine Clearance 27 mL/min (70-130); Calcium 7.7 mg/dL (7.8-10.44); Carbon Dioxide 24 mmol/L (23-31); Chloride 95 mmol/L (98-107); Globulin 2.9 g/dL (2.4-3.5); Glucose 344 mg/dL (80-115); Potassium 4.2 mmol/L (3.5-5.1); Protein, Total 5.8 g/dL (5.8-8.1); Sodium 131 mmol/L (136-145)
[2021-01-22] MEDS: HumaLOG 300 UNITS/3 ML VIAL SC PRN ×4 (06:00→21:27)
[2021-01-22] MEDS: HYDROcodone/Acetaminophen 5/325 mg Tablet PO PRN ×4 (08:27→21:27)
[2021-01-22] MEDS: DULoxetine 30 MG CAP PO SCH (08:28)
[2021-01-22] MEDS: Gabapentin 100 MG CAP PO SCH ×3 (08:29→21:24)
[2021-01-22] MEDS: Midodrine HCl 5 MG TAB PO SCH ×3 (08:29→21:27)
[2021-01-22] MEDS: Ferrous Sulfate 325 MG TAB PO SCH (08:29)
[2021-01-22] MEDS: Heparin 5,000 UNITS/ML VIAL SC SCH ×2 (08:30→21:26)
[2021-01-22] MEDS: Piperacillin/Tazobactam 3.375 GM, Admixture Fee 1 EACH in Sodium Chloride 0.9% 100 ML IVPB SCH ×2 (12:08→21:27)
[2021-01-22] MEDS: Aspirin 81 mg Enteric Coated Tablet PO SCH (21:24)
[2021-01-22] MEDS: Rosuvastatin 10 MG TAB PO SCH (21:27)
[2021-01-23] MEDS: Acetaminophen/Codeine 30-300mg Tablet PO PRN ×4 (03:24→21:07)
[2021-01-23] MEDS: HumaLOG 300 UNITS/3 ML VIAL SC PRN ×3 (05:36→16:35)
[2021-01-23 06:32] LABS: Albumin 2.9 g/dL (3.4-4.8); Anion Gap 19 mmol/L (10-20); BUN (Urea Nitrogen) 36 mg/dL (8.4-25.7); BUN/Creatinine Ratio 8.35; Calc. Creatinine Clearance 22 mL/min (70-130); Calcium 7.7 mg/dL (7.8-10.44); Carbon Dioxide 20 mmol/L (23-31); Chloride 95 mmol/L (98-107); Glucose 189 mg/dL (80-115); Phosphorus 4.1 mg/dL (2.3-4.7); Potassium 4.3 mmol/L (3.5-5.1); Sodium 130 mmol/L (136-145)
[2021-01-23] MEDS: DULoxetine 30 MG CAP PO SCH (09:04)
[2021-01-23] MEDS: Ferrous Sulfate 325 MG TAB PO SCH (09:04)
[2021-01-23] MEDS: Midodrine HCl 5 MG TAB PO SCH ×3 (09:04→21:03)
[2021-01-23] MEDS: Heparin 5,000 UNITS/ML VIAL SC SCH ×2 (09:05→21:03)
[2021-01-23] MEDS: Gabapentin 100 MG CAP PO SCH ×3 (09:06→21:02)
[2021-01-23] MEDS: Piperacillin/Tazobactam 3.375 GM, Admixture Fee 1 EACH in Sodium Chloride 0.9% 100 ML IVPB SCH ×2 (09:10→21:01)
[2021-01-23] MEDS ORDERED: Melatonin 3 MG TAB PO PRN (19:36)
[2021-01-23] MEDS: Rosuvastatin 10 MG TAB PO SCH (21:02)
[2021-01-23] MEDS: Aspirin 81 mg Enteric Coated Tablet PO SCH (21:02)
[2021-01-24] MEDS: Acetaminophen/Codeine 30-300mg Tablet PO PRN ×3 (03:10→20:53)
[2021-01-24 05:38] LABS: Albumin 3.1 g/dL (3.4-4.8); Anion Gap 19 mmol/L (10-20); BUN (Urea Nitrogen) 44 mg/dL (8.4-25.7); BUN/Creatinine Ratio 8.37; Calc. Creatinine Clearance 18 mL/min (70-130); Carbon Dioxide 21 mmol/L (23-31); Chloride 92 mmol/L (98-107); Glucose 165 mg/dL (80-115); Phosphorus 4.9 mg/dL (2.3-4.7); Potassium 4.6 mmol/L (3.5-5.1); Sodium 127 mmol/L (136-145)
[2021-01-24] MEDS ORDERED: Protamine Sulfate 50 MG/5 ML VIAL ONE (06:29)
[2021-01-24] MEDS ORDERED: Heparin 10,000 UNITS/ 10 ML VIAL ONE (06:29)
[2021-01-24] MEDS ORDERED: Sodium Chloride 0.9% 20 ML ONE (06:29)
[2021-01-24] MEDS ORDERED: Bupivacaine PF 0.5% 30 ML VIAL ONE (06:29)
[2021-01-24] MEDS ORDERED: Lidocaine 1% w/Epinephrine 1:100K 20 ML VIAL ONE (06:29)
[2021-01-24] MEDS ORDERED: Heparin 5,000 UNITS/ML VIAL ONE (06:29)
[2021-01-24] MEDS ORDERED: Fentanyl 100 MCG/2 ML VIAL ONE ×2 (06:33→08:50)
[2021-01-24] MEDS ORDERED: Propofol 500 MG/50 ML VIAL ONE (06:40)
[2021-01-24] MEDS ORDERED: PROPOFOL 200 MG/20 ML VIAL ONE (07:00)
[2021-01-24] MEDS ORDERED: Lidocaine 1% PF 5 ML VIAL ONE (07:00)
[2021-01-24] MEDS ORDERED: Promethazine HCl 25 MG/ML VIAL IM PRN (07:01)
[2021-01-24] MEDS ORDERED: Ondansetron HCl/PF 4 MG/2 ML Vial IVP PRN (07:01)
[2021-01-24] MEDS ORDERED: Promethazine HCl 25 MG/ML VIAL IVPB PRN (07:01)
[2021-01-24] MEDS: Gabapentin 100 MG CAP PO SCH ×3 (10:00→20:53)
[2021-01-24] MEDS: Heparin 5,000 UNITS/ML VIAL SC SCH ×2 (10:00→20:53)
[2021-01-24] MEDS: Ferrous Sulfate 325 MG TAB PO SCH (10:00)
[2021-01-24] MEDS: DULoxetine 30 MG CAP PO SCH (10:00)
[2021-01-24] MEDS: Midodrine HCl 5 MG TAB PO SCH ×3 (10:01→20:54)
[2021-01-24] MEDS: Piperacillin/Tazobactam 3.375 GM, Admixture Fee 1 EACH in Sodium Chloride 0.9% 100 ML IVPB SCH ×2 (10:02→21:52)
[2021-01-24] MEDS ORDERED: Tuberculin PPD 0.1 ML VIAL I-DERMAL SCH (12:30)
[2021-01-24 13:42] LABS: Vancomycin, Random 9.9 ug/mL (See Comment)
[2021-01-24 13:56] LABS: HBSAg Index 0.16 S/CO (0-0.99); Hep B Surf Ag Non-Reactive S/CO (NonReactive)
[2021-01-24 14:12] LABS: HBSAB Concentration 19.87 mIU/mL; Hep B Core Total Ab Reactive (NonReactive); Hep B Core Total Index 3.84 S/CO (0-0.79); Hep B Surf AB Reactive (NonReactive); Hep C IgG Ab Reflex HepC Qnt (NonReactive); Hep C Index 1.38 S/CO (0-0.79)
[2021-01-24] MEDS ORDERED: Vancomycin 1 GM in Premix Bag 1 BAG IVPB SCH (15:00)
[2021-01-24] MEDS: HYDROcodone/Acetaminophen 5/325 mg Tablet PO PRN (15:45)
[2021-01-24] MEDS: Aspirin 81 mg Enteric Coated Tablet PO SCH (20:53)
[2021-01-24] MEDS: Rosuvastatin 10 MG TAB PO SCH (20:54)
[2021-01-25] MEDS: Acetaminophen/Codeine 30-300mg Tablet PO PRN ×2 (01:36→09:37)
[2021-01-25] MEDS: HYDROcodone/Acetaminophen 5/325 mg Tablet PO PRN (04:29)
[2021-01-25 05:19] LABS: Albumin 2.7 g/dL (3.4-4.8); Anion Gap 18 mmol/L (10-20); BUN (Urea Nitrogen) 22 mg/dL (8.4-25.7); BUN/Creatinine Ratio 6.55; Calc. Creatinine Clearance 27 mL/min (70-130); Calcium 7.6 mg/dL (7.8-10.44); Carbon Dioxide 22 mmol/L (23-31); Chloride 95 mmol/L (98-107); Glucose 242 mg/dL (80-115); Phosphorus 3.6 mg/dL (2.3-4.7); Potassium 3.9 mmol/L (3.5-5.1); Sodium 131 mmol/L (136-145)
[2021-01-25] MEDS: HumaLOG 300 UNITS/3 ML VIAL SC PRN ×2 (06:01→17:26)
[2021-01-25] MEDS ORDERED: Heparin 10,000 UNITS/ 10 ML VIAL ONE (08:54)
[2021-01-25] MEDS: Ferrous Sulfate 325 MG TAB PO SCH (12:40)
[2021-01-25] MEDS: Gabapentin 100 MG CAP PO SCH ×2 (12:40→15:53)
[2021-01-25] MEDS: Heparin 5,000 UNITS/ML VIAL SC SCH ×2 (12:41→21:10)
[2021-01-25] MEDS: Midodrine HCl 5 MG TAB PO SCH ×3 (12:41→21:09)
[2021-01-25] MEDS: DULoxetine 30 MG CAP PO SCH (12:41)
[2021-01-25] MEDS: Piperacillin/Tazobactam 3.375 GM in Sodium Chloride 0.9% 100 ML IVPB SCH ×2 (12:42→21:08)
[2021-01-25] MEDS ORDERED: HYDROcodone/Acetaminophen 5/325 mg Tablet PO PRN (13:15)
[2021-01-25] MEDS ORDERED: Morphine 2 MG/ML VIAL SLOW IVP PRN (15:56)
[2021-01-25] MEDS: Rosuvastatin 10 MG TAB PO SCH (21:09)
[2021-01-25] MEDS: Gabapentin 300 MG CAP PO SCH (21:09)
[2021-01-25] MEDS: Morphine 4 MG/ML VIAL SLOW IVP SCH (21:11)
[2021-01-25] MEDS: Aspirin 81 mg Enteric Coated Tablet PO SCH (21:11)
[2021-01-26] MEDS: Morphine 4 MG/ML VIAL SLOW IVP SCH ×7 (01:00→21:09)
[2021-01-26] MEDS: HumaLOG 300 UNITS/3 ML VIAL SC PRN ×3 (06:00→21:09)
[2021-01-26 06:53] LABS: Albumin 2.8 g/dL (3.4-4.8); Anion Gap 18 mmol/L (10-20); BUN (Urea Nitrogen) 30 mg/dL (8.4-25.7); BUN/Creatinine Ratio 6.64; Calc. Creatinine Clearance 21 mL/min (70-130); Calcium 7.7 mg/dL (7.8-10.44); Carbon Dioxide 21 mmol/L (23-31); Chloride 94 mmol/L (98-107); Glucose 176 mg/dL (80-115); Phosphorus 4.8 mg/dL (2.3-4.7); Potassium 4.2 mmol/L (3.5-5.1); Sodium 129 mmol/L (136-145)
[2021-01-26] MEDS ORDERED: Heparin 10,000 UNITS/ 10 ML VIAL ONE (08:54)
[2021-01-26 09:13] LABS: Vancomycin, Random 11.3 ug/mL (See Comment)
[2021-01-26 11:15] LABS: Hep C PCR-Quant HCV Not Detected IU/mL (.)
[2021-01-26] MEDS: Midodrine HCl 5 MG TAB PO SCH ×3 (12:19→21:08)
[2021-01-26] MEDS: Gabapentin 300 MG CAP PO SCH ×3 (12:19→21:08)
[2021-01-26] MEDS: Heparin 5,000 UNITS/ML VIAL SC SCH ×2 (12:35→21:08)
[2021-01-26] MEDS: Ferrous Sulfate 325 MG TAB PO SCH (12:38)
[2021-01-26] MEDS: DULoxetine 30 MG CAP PO SCH (12:38)
[2021-01-26] MEDS: Piperacillin/Tazobactam 3.375 GM in Sodium Chloride 0.9% 100 ML IVPB SCH ×2 (12:38→21:10)
[2021-01-26] MEDS ORDERED: HYDROcodone/Acetaminophen 5/325 mg Tablet PO PRN (13:12)
[2021-01-26] MEDS: Vancomycin HCl 750 MG in Sodium Chloride 0.9% 250 ML 250 ML IVPB SCH (14:23)
[2021-01-26] MEDS: Aspirin 81 mg Enteric Coated Tablet PO SCH (21:08)
[2021-01-26] MEDS: Rosuvastatin 10 MG TAB PO SCH (21:08)
[2021-01-27] MEDS: Morphine 4 MG/ML VIAL SLOW IVP SCH ×6 (01:29→20:50)
[2021-01-27 05:29] LABS: Eosinophils 6 % (0-10); Hemoglobin 7.7 g/dL (14.0-18.0); Lymphocytes 10 % (21-51); MDiff Complete? YES; Mean Corpuscular HGB CONC 32.4 g/dL (32.0-36.0); Mean Corpuscular Volume 80.1 fL (78.0-98.0); Mean Platelet Volume 10.6 fL (7.4-10.4); Metamyelocyte 1 % (0-0); Monocytes 19 % (0-10); Neutrophil 64 % (42-75); Platelet Count 102 thou/uL (130-400); Platelet Morphology Comment Appears Decreased; Red Blood Cell (RBC) Count 2.98 mill/uL (4.70-6.10); White Blood Cell (WBC) Count 3.7 thou/uL (4.8-10.8)
[2021-01-27 05:42] LABS: Anion Gap 16 mmol/L (10-20); BUN (Urea Nitrogen) 18 mg/dL (8.4-25.7); Calc. Creatinine Clearance 32 mL/min (70-130); Calcium 7.5 mg/dL (7.8-10.44); Carbon Dioxide 22 mmol/L (23-31); Chloride 98 mmol/L (98-107); Glucose 255 mg/dL (80-115); Potassium 3.9 mmol/L (3.5-5.1); Sodium 132 mmol/L (136-145)
[2021-01-27] MEDS: HumaLOG 300 UNITS/3 ML VIAL SC PRN ×2 (05:58→16:53)
[2021-01-27] MEDS: Ferrous Sulfate 325 MG TAB PO SCH (09:06)
[2021-01-27] MEDS: DULoxetine 30 MG CAP PO SCH (09:07)
[2021-01-27] MEDS: Gabapentin 300 MG CAP PO SCH ×3 (09:07→20:51)
[2021-01-27] MEDS: Midodrine HCl 5 MG TAB PO SCH ×3 (09:07→20:51)
[2021-01-27] MEDS: Piperacillin/Tazobactam 3.375 GM in Sodium Chloride 0.9% 100 ML IVPB SCH ×2 (09:08→20:51)
[2021-01-27] MEDS: Heparin 5,000 UNITS/ML VIAL SC SCH ×2 (09:08→20:50)
[2021-01-27 12:26] VITALS: BMI 31.8
[2021-01-27] MEDS: Rosuvastatin 10 MG TAB PO SCH (20:51)
[2021-01-27] MEDS: Aspirin 81 mg Enteric Coated Tablet PO SCH (20:51)
[2021-01-28] MEDS: Morphine 4 MG/ML VIAL SLOW IVP SCH ×4 (01:10→13:04)
[2021-01-28 04:15] LABS: Anion Gap 16 mmol/L (10-20); BUN (Urea Nitrogen) 25 mg/dL (8.4-25.7); Calc. Creatinine Clearance 23 mL/min (70-130); Calcium 7.6 mg/dL (7.8-10.44); Carbon Dioxide 21 mmol/L (23-31); Chloride 98 mmol/L (98-107); Glucose 249 mg/dL (80-115); Potassium 4.3 mmol/L (3.5-5.1); Sodium 131 mmol/L (136-145)
[2021-01-28] MEDS: HumaLOG 300 UNITS/3 ML VIAL SC PRN (05:26)
[2021-01-28] MEDS ORDERED: Heparin 10,000 UNITS/ 10 ML VIAL ONE (08:55)
[2021-01-28] MEDS: Heparin 5,000 UNITS/ML VIAL SC SCH (09:00)
[2021-01-28] MEDS: Midodrine HCl 5 MG TAB PO SCH ×2 (09:00→14:44)
[2021-01-28] MEDS: Gabapentin 300 MG CAP PO SCH ×2 (09:00→14:44)
[2021-01-28] MEDS: Piperacillin/Tazobactam 3.375 GM in Sodium Chloride 0.9% 100 ML IVPB SCH (10:00)
[2021-01-28 11:24] LABS: Vancomycin, Random 11.1 ug/mL (See Comment)
[2021-01-28] MEDS: Ferrous Sulfate 325 MG TAB PO SCH (13:03)
[2021-01-28] MEDS: DULoxetine 30 MG CAP PO SCH (13:04)
[2021-01-28] MEDS ORDERED: Vancomycin HCl 750 MG in Sodium Chloride 0.9% 250 ML 250 ML IVPB SCH (13:30)
[2021-01-28 15:15] VITALS: BP 110/58; TEMP 98.4
== END 2021-01-28 16:41 | disposition home or self-care (01) | DRG 853 ==
LOC: ERS 10:17 → CCU 12:23 → 2NO 01-18 19:44
PROVIDERS: ADMIT Internal Medicine; ATTEND Internal Medicine
PROC: 06HY33Z Insertion of Infusion Device into Lower Vein, Percutaneous Approach (ICD-10-PCS; principal; 2021-01-17)
PROC: 5A1D70Z Performance of Urinary Filtration, Intermittent, Less than 6 Hours Per Day (ICD-10-PCS; 2021-01-17)
PROC: B4101ZZ Fluoroscopy of Abdominal Aorta using Low Osmolar Contrast (ICD-10-PCS; 2021-01-20)
PROC: B41G1ZZ Fluoroscopy of Left Lower Extremity Arteries using Low Osmolar Contrast (ICD-10-PCS; 2021-01-20)
PROC: 04CL0ZZ Extirpation of Matter from Left Femoral Artery, Open Approach (ICD-10-PCS; 2021-01-21)
PROC: 04UL0KZ Supplement Left Femoral Artery with Nonautologous Tissue Substitute, Open Approach (ICD-10-PCS; 2021-01-21)
PROC: 0Y6U0Z1 Detachment at Left 3rd Toe, High, Open Approach (ICD-10-PCS; 2021-01-24)
PROC: 0Y6Y0Z1 Detachment at Left 5th Toe, High, Open Approach (ICD-10-PCS; 2021-01-24)
PROC: 0Y6W0Z1 Detachment at Left 4th Toe, High, Open Approach (ICD-10-PCS; 2021-01-24)
PROC: 0JH63XZ Insertion of Tunneled Vascular Access Device into Chest Subcutaneous Tissue and Fascia, Percutaneous Approach (ICD-10-PCS; 2021-01-24)
PROC: 02H633Z Insertion of Infusion Device into Right Atrium, Percutaneous Approach (ICD-10-PCS; 2021-01-24)
PROC: B5181ZA Fluoroscopy of Superior Vena Cava using Low Osmolar Contrast, Guidance (ICD-10-PCS; 2021-01-24)
PROC: B548ZZA Ultrasonography of Superior Vena Cava, Guidance (ICD-10-PCS; 2021-01-24)
DX: A41.9 Sepsis, unspecified organism (principal); G93.41 Metabolic encephalopathy; N18.6 End stage renal disease; I50.23 Acute on chronic systolic (congestive) heart failure; E11.52 Type 2 diabetes mellitus with diabetic peripheral angiopathy with gangrene; N17.9 Acute kidney failure, unspecified; E87.2 Acidosis; I13.0 Hypertensive heart and chronic kidney disease with heart failure and stage 1 through stage 4 chronic kidney disease, or unspecified chronic kidney disease; I42.9 Cardiomyopathy, unspecified; E87.1 Hypo-osmolality and hyponatremia; L76.22 Postprocedural hemorrhage of skin and subcutaneous tissue following other procedure; M31.9 Necrotizing vasculopathy, unspecified; T81.72XA Complication of vein following a procedure, not elsewhere classified, initial encounter; I82.612 Acute embolism and thrombosis of superficial veins of left upper extremity; Z66 Do not resuscitate; Z20.822 Contact with and (suspected) exposure to COVID-19; R65.20 Severe sepsis without septic shock; E87.5 Hyperkalemia; I08.1 Rheumatic disorders of both mitral and tricuspid valves; I25.10 Atherosclerotic heart disease of native coronary artery without angina pectoris; E11.22 Type 2 diabetes mellitus with diabetic chronic kidney disease; R29.6 Repeated falls; D50.9 Iron deficiency anemia, unspecified; D63.1 Anemia in chronic kidney disease; F32.9 Major depressive disorder, single episode, unspecified; E11.628 Type 2 diabetes mellitus with other skin complications; Y83.8 Other surgical procedures as the cause of abnormal reaction of the patient, or of later complication, without mention of misadventure at the time of the procedure; Z83.49 Family history of other endocrine, nutritional and metabolic diseases; Z84.1 Family history of disorders of kidney and ureter; Z86.19 Personal history of other infectious and parasitic diseases; Z82.49 Family history of ischemic heart disease and other diseases of the circulatory system; Z95.5 Presence of coronary angioplasty implant and graft; Z79.84 Long term (current) use of oral hypoglycemic drugs; Z79.82 Long term (current) use of aspirin; Z79.899 Other long term (current) drug therapy; Z89.432 Acquired absence of left foot; Z99.2 Dependence on renal dialysis
CPT/HCPCS: 36247; 36415; 36416; 36556; 36600; 71045; 75710; 76770; 76942; 80048; 80053; 80069; 80202; 82553; 82805; 83605; 83690; 83735; 83880; 84100; 84484; 85025; 85027; 85652; 86140; 86580; 86704; 86706; 86803; 87040; 87340; 87522; 88305; 90935; 93005; 93970; 94760; 96374; 96375; 99292; C1751; C1752; G0257; J0171; J1100; J1644; J1815; J2001; J2270; J2405; J2543; J2704; J2720; J3010; J3370; J3490; J7050; J7070; Q9967; S0020; U0003; U0005

== ENCOUNTER 2021-07-12 12:14 | Inpatient (IN) | payer MEDICARE ==
[2021-07-12 13:17] LABS: #Lymphocytes 0.4 thou/uL (1.20-3.40); #Monocytes 0.7 thou/uL (0.11-0.59); #Neutrophils 7.3 thou/uL (1.40-6.50); %Eosinophils 0.4 % (0.0-10.0); %Lymphocytes 4.2 % (21.0-51.0); %Monocytes 8.2 % (0.0-10.0); %Neutrophils 87.2 % (42.0-75.0); Hemoglobin 10.6 g/dL (14.0-18.0); Mean Corpuscular HGB CONC 32.2 g/dL (32.0-36.0); Mean Platelet Volume 7.3 fL (7.4-10.4); Platelet Count 216 thou/uL (130-400); RBC Distribution Width 13.5 % (11.5-14.5); Red Blood Cell (RBC) Count 3.78 mill/uL (4.70-6.10); White Blood Cell (WBC) Count 8.4 thou/uL (4.8-10.8)
[2021-07-12 13:39] LABS: ALT (SGPT) 11 U/L (8-55); AST (SGOT) 26 U/L (5-34); Alkaline Phosphatase 359 U/L (40-110); Anion Gap 11 mmol/L (10-20); BUN (Urea Nitrogen) 25 mg/dL (8.4-25.7); Bilirubin, Total 0.9 mg/dL (0.2-1.2); Calc. Creatinine Clearance 0 mL/min (70-130); Calcium 8.5 mg/dL (7.8-10.44); Carbon Dioxide 24 mmol/L (23-31); Chloride 97 mmol/L (98-107); Globulin 4.1 g/dL (2.4-3.5); Potassium 4.1 mmol/L (3.5-5.1); Protein, Total 7.1 g/dL (5.8-8.1); Sodium 128 mmol/L (136-145)
[2021-07-12 13:49] LABS: Glucose 46 mg/dL (80-115)
[2021-07-12 14:01] LABS: CKMB 3.4 ng/mL (0-6.6)
[2021-07-12 15:09] LABS: Bilirubin Negative (Negative); Blood, Urine Negative (Negative); Clarity Clear (Clear); Glucose, Urine (Dipstick) 500 mg/dL (Negative); Ketone, Urine Negative (Negative); Leukocyte Negative Leu/uL (Negative); Nitrite Negative (Negative); Protein, Urine (Dipstick) Negative (Neg-Trace); Specific Gravity, Urine 1.011 (1.002-1.036); Urobilinogen Normal mg/dL (Less than 2)
[2021-07-12] MEDS ORDERED: Dextrose 50% Abboject 50 ML SYRINGE ONE ×2 (15:25→15:27)
[2021-07-12] MEDS ORDERED: Dextrose 5 % And 0.9 % NaCl 1,000 ML IV SCH ×2 (16:37→22:00)
[2021-07-12 18:08] LABS: Troponin I 0.053 ng/mL (< 0.028)
[2021-07-12 20:56] LABS: Troponin I 0.051 ng/mL (< 0.028)
[2021-07-12] MEDS ORDERED: Ondansetron PF 4 MG/2 ML Vial IVP PRN (21:41)
[2021-07-12] MEDS ORDERED: Dextrose 5% in Water 1,000 ML IV PRN (21:41)
[2021-07-12] MEDS ORDERED: Dextrose 50% Abboject 50 ML SYRINGE SLOW IVP PRN (21:41)
[2021-07-12] MEDS ORDERED: Acetaminophen 325 MG TAB PO PRN (21:41)
[2021-07-12] MEDS ORDERED: HYDROcodone/Acetaminophen 5/325 mg Tablet PO SCH (22:00)
[2021-07-12 22:11] VITALS: BMI 37.2
[2021-07-12 22:30] LABS: Anion Gap 17 mmol/L (10-20); BUN (Urea Nitrogen) 24 mg/dL (8.4-25.7); Calc. Creatinine Clearance 90 mL/min (70-130); Calcium 8.4 mg/dL (7.8-10.44); Carbon Dioxide 21 mmol/L (23-31); Chloride 97 mmol/L (98-107); Glucose 64 mg/dL (80-115); Potassium 4.6 mmol/L (3.5-5.1); Sodium 130 mmol/L (136-145)
[2021-07-13 00:44] LABS: SARS-CoV-2 PCR by NAA Not Detected (NotDetected)
[2021-07-13 06:41] LABS: #Eosinphils 0.1 thou/uL (0.0-0.7); #Lymphocytes 0.4 thou/uL (1.20-3.40); #Monocytes 0.4 thou/uL (0.11-0.59); %Eosinophils 2.4 % (0.0-10.0); %Lymphocytes 9.9 % (21.0-51.0); %Monocytes 10.3 % (0.0-10.0); %Neutrophils 77.5 % (42.0-75.0); Mean Corpuscular HGB CONC 32.9 g/dL (32.0-36.0); Mean Corpuscular Hemoglobin 28.9 pg (27.0-31.0); Mean Corpuscular Volume 87.6 fL (78.0-98.0); Mean Platelet Volume 7.7 fL (7.4-10.4); Platelet Count 169 thou/uL (130-400); RBC Distribution Width 13.7 % (11.5-14.5); Red Blood Cell (RBC) Count 3.46 mill/uL (4.70-6.10); White Blood Cell (WBC) Count 3.9 thou/uL (4.8-10.8)
[2021-07-13 07:01] LABS: Anion Gap 14 mmol/L (10-20); BUN (Urea Nitrogen) 24 mg/dL (8.4-25.7); Calc. Creatinine Clearance 91 mL/min (70-130); Calcium 8.1 mg/dL (7.8-10.44); Carbon Dioxide 23 mmol/L (23-31); Chloride 96 mmol/L (98-107); Glucose 74 mg/dL (80-115); Potassium 4.5 mmol/L (3.5-5.1); Sodium 128 mmol/L (136-145)
[2021-07-13] MEDS ORDERED: Calcium Carbonate 500 MG ChewTAB PO PRN (08:10)
[2021-07-13] MEDS ORDERED: Hydrocerin (Eucerin) Cream 120 gm Jar TOP PRN (08:10)
[2021-07-13] MEDS ORDERED: Cepastat Lozenges 1 LOZ PO PRN (08:10)
[2021-07-13] MEDS ORDERED: Artificial Tear Sol 15 ML BOT EA EYE PRN (08:10)
[2021-07-13] MEDS ORDERED: Sodium Chloride 0.65% Nasal 44 ML BOT EA NARE PRN (08:10)
[2021-07-13] MEDS ORDERED: GUAIFENESIN SF SOLN 200 MG/10 ML UDCUP PO PRN (08:10)
[2021-07-13] MEDS ORDERED: Bisacodyl 5 MG TAB PO PRN (08:10)
[2021-07-13] MEDS ORDERED: Loratadine 10 MG TAB PO PRN (08:10)
[2021-07-13] MEDS ORDERED: Ondansetron ODT 4 MG TAB PO PRN (08:10)
[2021-07-13] MEDS ORDERED: Senokot S 8.6-50 MG TAB PO PRN (08:10)
[2021-07-13] MEDS ORDERED: Loperamide HCl 2 MG CAP PO PRN (08:10)
[2021-07-13] MEDS ORDERED: hydrALAZINE 20 MG/ML VIAL SLOW IVP PRN (08:10)
[2021-07-13] MEDS ORDERED: Melatonin 3 MG TAB PO PRN (08:11)
[2021-07-13] MEDS ORDERED: Furosemide 20 MG/2 ML VIAL SLOW IVP SCH (08:15)
[2021-07-13] MEDS ORDERED: Enoxaparin Sodium 40 MG/0.4 ML SYRINGE SC SCH (09:00)
[2021-07-13] MEDS ORDERED: Non-Formulary Item 1 EACH (Magnesium Oxide [Mag-Oxide] 200 MG Tablet) PO SCH (09:00)
[2021-07-13] MEDS: Gabapentin 300 MG CAP PO SCH ×2 (09:19→20:23)
[2021-07-13] MEDS: DULoxetine 30 MG CAP PO SCH (09:19)
[2021-07-13] MEDS: cefTRIAXone\\ROCEPHIN 1 GM in Sodium Chloride 0.9% 100 ML IVPB SCH (09:19)
[2021-07-13] MEDS: Midodrine HCl 5 MG TAB PO SCH ×3 (09:20→20:23)
[2021-07-13] MEDS: Magnesium Oxide 400 MG TAB PO SCH (09:20)
[2021-07-13] MEDS: HYDROcodone/Acetaminophen 5/325 mg Tablet PO PRN ×3 (09:33→20:23)
[2021-07-13] MEDS: Furosemide 20 MG/2 ML VIAL SLOW IVP SCH (14:24)
[2021-07-13] MEDS ORDERED: Dextrose 10% in Water 1,000 ML IV SCH (17:15)
[2021-07-13 18:13] LABS: Bilirubin Negative (Negative); Blood, Urine Negative (Negative); Clarity Clear (Clear); Glucose, Urine (Dipstick) Normal (Negative); Ketone, Urine Negative (Negative); Leukocyte Negative Leu/uL (Negative); Nitrite Negative (Negative); Protein, Urine (Dipstick) Negative (Neg-Trace); Specific Gravity, Urine 1.008 (1.002-1.036); Urobilinogen Normal mg/dL (Less than 2); pH, Urine 5.5 (5.0-9.0)
[2021-07-13 18:54] LABS: Creatinine, Urine 33.61 mg/dL (63-166); Protein, Urine Random Quant Less than 10 mg/dL (1-14)
[2021-07-13] MEDS: Enoxaparin Sodium 100 MG/ML SYRINGE SC SCH (20:22)
[2021-07-13] MEDS: Rosuvastatin 20 MG TAB PO SCH (20:23)
[2021-07-13] MEDS: Aspirin 81 mg Enteric Coated Tablet PO SCH (20:23)
[2021-07-14] MEDS: Furosemide 20 MG/2 ML VIAL SLOW IVP SCH ×2 (05:27→15:32)
[2021-07-14] MEDS: HYDROcodone/Acetaminophen 5/325 mg Tablet PO PRN ×3 (07:13→20:17)
[2021-07-14] MEDS: Midodrine HCl 5 MG TAB PO SCH ×3 (08:36→20:17)
[2021-07-14] MEDS: cefTRIAXone\\ROCEPHIN 1 GM in Sodium Chloride 0.9% 100 ML IVPB SCH (08:36)
[2021-07-14] MEDS: Magnesium Oxide 400 MG TAB PO SCH (08:36)
[2021-07-14] MEDS: Enoxaparin Sodium 100 MG/ML SYRINGE SC SCH ×2 (08:37→20:16)
[2021-07-14] MEDS: DULoxetine 30 MG CAP PO SCH (08:37)
[2021-07-14] MEDS: Gabapentin 300 MG CAP PO SCH ×2 (08:37→20:17)
[2021-07-14 09:31] LABS: #Eosinphils 0.2 thou/uL (0.0-0.7); #Lymphocytes 0.3 thou/uL (1.20-3.40); #Monocytes 0.4 thou/uL (0.11-0.59); %Basophils 1.2 % (0.0-1.0); %Eosinophils 3.9 % (0.0-10.0); %Monocytes 10.4 % (0.0-10.0); %Neutrophils 76.5 % (42.0-75.0); Hemoglobin 10.1 g/dL (14.0-18.0); Mean Corpuscular HGB CONC 32.1 g/dL (32.0-36.0); Mean Corpuscular Hemoglobin 27.8 pg (27.0-31.0); Mean Corpuscular Volume 86.6 fL (78.0-98.0); Mean Platelet Volume 7.6 fL (7.4-10.4); Platelet Count 179 thou/uL (130-400); RBC Distribution Width 13.7 % (11.5-14.5); Red Blood Cell (RBC) Count 3.63 mill/uL (4.70-6.10); White Blood Cell (WBC) Count 3.9 thou/uL (4.8-10.8)
[2021-07-14 09:51] LABS: Anion Gap 14 mmol/L (10-20); BUN (Urea Nitrogen) 25 mg/dL (8.4-25.7); Calc. Creatinine Clearance 88 mL/min (70-130); Calcium 8.3 mg/dL (7.8-10.44); Carbon Dioxide 23 mmol/L (23-31); Chloride 97 mmol/L (98-107); Glucose 136 mg/dL (80-115); Magnesium 1.9 mg/dL (1.6-2.6); Potassium 4.9 mmol/L (3.5-5.1); Sodium 129 mmol/L (136-145)
[2021-07-14 09:52] LABS: ALT (SGPT) 12 U/L (8-55); AST (SGOT) 31 U/L (5-34); Albumin 2.5 g/dL (3.4-4.8); Alkaline Phosphatase 325 U/L (40-110); Bilirubin, Direct 0.4 mg/dL (0.1-0.3); Bilirubin, Total 0.6 mg/dL (0.2-1.2); CRP (Inflammatory) 2.07 mg/dL (= or < 0.5); Phosphorus 3.3 mg/dL (2.3-4.7); Protein, Total 6.1 g/dL (5.8-8.1)
[2021-07-14] MEDS: Rosuvastatin 20 MG TAB PO SCH (20:17)
[2021-07-14] MEDS: Aspirin 81 mg Enteric Coated Tablet PO SCH (20:17)
[2021-07-15 05:04] LABS: #Eosinphils 0.1 thou/uL (0.0-0.7); #Lymphocytes 0.4 thou/uL (1.20-3.40); #Monocytes 0.4 thou/uL (0.11-0.59); #Neutrophils 2.5 thou/uL (1.40-6.50); %Basophils 1.4 % (0.0-1.0); %Eosinophils 3.2 % (0.0-10.0); %Lymphocytes 10.4 % (21.0-51.0); %Monocytes 12.6 % (0.0-10.0); %Neutrophils 72.4 % (42.0-75.0); Hemoglobin 9.6 g/dL (14.0-18.0); Mean Corpuscular HGB CONC 32.4 g/dL (32.0-36.0); Mean Corpuscular Hemoglobin 27.8 pg (27.0-31.0); Mean Corpuscular Volume 85.7 fL (78.0-98.0); Mean Platelet Volume 7.4 fL (7.4-10.4); Platelet Count 197 thou/uL (130-400); RBC Distribution Width 13.6 % (11.5-14.5); Red Blood Cell (RBC) Count 3.46 mill/uL (4.70-6.10); White Blood Cell (WBC) Count 3.5 thou/uL (4.8-10.8)
[2021-07-15 05:31] LABS: BUN (Urea Nitrogen) 28 mg/dL (8.4-25.7); Calc. Creatinine Clearance 82 mL/min (70-130)
[2021-07-15] MEDS: Furosemide 20 MG/2 ML VIAL SLOW IVP SCH ×2 (05:32→15:13)
[2021-07-15] MEDS: HYDROcodone/Acetaminophen 5/325 mg Tablet PO PRN ×3 (05:32→21:16)
[2021-07-15 05:53] LABS: Anion Gap 14 mmol/L (10-20); Calcium 8.1 mg/dL (7.8-10.44); Carbon Dioxide 24 mmol/L (23-31); Chloride 97 mmol/L (98-107); Glucose 169 mg/dL (80-115); Potassium 4.5 mmol/L (3.5-5.1); Sodium 130 mmol/L (136-145)
[2021-07-15] MEDS: cefTRIAXone\\ROCEPHIN 1 GM in Sodium Chloride 0.9% 100 ML IVPB SCH (09:08)
[2021-07-15] MEDS: Magnesium Oxide 400 MG TAB PO SCH (09:09)
[2021-07-15] MEDS: DULoxetine 30 MG CAP PO SCH (09:09)
[2021-07-15] MEDS: Midodrine HCl 5 MG TAB PO SCH ×3 (09:10→21:16)
[2021-07-15] MEDS: Enoxaparin Sodium 100 MG/ML SYRINGE SC SCH ×2 (09:10→21:15)
[2021-07-15] MEDS: Gabapentin 300 MG CAP PO SCH ×2 (09:10→21:17)
[2021-07-15] MEDS: Aspirin 81 mg Enteric Coated Tablet PO SCH (21:16)
[2021-07-15] MEDS: Rosuvastatin 20 MG TAB PO SCH (21:17)
[2021-07-16] MEDS: Furosemide 20 MG/2 ML VIAL SLOW IVP SCH ×2 (05:05→14:53)
[2021-07-16] MEDS: HYDROcodone/Acetaminophen 5/325 mg Tablet PO PRN ×3 (05:12→21:20)
[2021-07-16 06:59] LABS: Anion Gap 12 mmol/L (10-20); BUN (Urea Nitrogen) 28 mg/dL (8.4-25.7); Calc. Creatinine Clearance 83 mL/min (70-130); Calcium 8.1 mg/dL (7.8-10.44); Carbon Dioxide 26 mmol/L (23-31); Chloride 99 mmol/L (98-107); Glucose 145 mg/dL (80-115); Magnesium 2.1 mg/dL (1.6-2.6); Potassium 4.1 mmol/L (3.5-5.1); Sodium 133 mmol/L (136-145)
[2021-07-16] MEDS ORDERED: DULoxetine 30 MG CAP PO SCH (08:45)
[2021-07-16] MEDS: Apixaban 5 MG TAB PO SCH ×2 (09:30→21:22)
[2021-07-16] MEDS: Gabapentin 300 MG CAP PO SCH ×2 (09:31→21:22)
[2021-07-16] MEDS: Famotidine 20 MG TAB PO SCH ×2 (09:31→21:22)
[2021-07-16] MEDS: DULoxetine 60 MG CAP PO SCH (09:31)
[2021-07-16] MEDS: Midodrine HCl 5 MG TAB PO SCH ×3 (09:32→21:21)
[2021-07-16] MEDS: Magnesium Oxide 400 MG TAB PO SCH (09:32)
[2021-07-16] MEDS: cefTRIAXone\\ROCEPHIN 1 GM in Sodium Chloride 0.9% 100 ML IVPB SCH (09:42)
[2021-07-16] MEDS: Rosuvastatin 20 MG TAB PO SCH (21:21)
[2021-07-16] MEDS: Aspirin 81 mg Enteric Coated Tablet PO SCH (21:22)
[2021-07-16] MEDS: traZODone HCl 50 MG TAB PO SCH (21:26)
[2021-07-17 04:52] LABS: Hemoglobin A1c 11.3 % (4.0-6.0)
[2021-07-17] MEDS: HYDROcodone/Acetaminophen 5/325 mg Tablet PO PRN ×4 (05:53→19:51)
[2021-07-17] MEDS: Furosemide 20 MG/2 ML VIAL SLOW IVP SCH ×2 (05:54→14:46)
[2021-07-17 09:15] LABS: ALT (SGPT) 10 U/L (8-55); AST (SGOT) 26 U/L (5-34); Albumin 2.7 g/dL (3.4-4.8); Alkaline Phosphatase 331 U/L (40-110); Anion Gap 11 mmol/L (10-20); BUN (Urea Nitrogen) 25 mg/dL (8.4-25.7); Bilirubin, Total 0.5 mg/dL (0.2-1.2); Calc. Creatinine Clearance 41 mL/min (70-130); Calcium 8.4 mg/dL (7.8-10.44); Carbon Dioxide 25 mmol/L (23-31); Chloride 100 mmol/L (98-107); Globulin 3.6 g/dL (2.4-3.5); Glucose 124 mg/dL (80-115); Potassium 4.1 mmol/L (3.5-5.1); Protein, Total 6.3 g/dL (5.8-8.1); Sodium 132 mmol/L (136-145)
[2021-07-17] MEDS: cefTRIAXone\\ROCEPHIN 1 GM in Sodium Chloride 0.9% 100 ML IVPB SCH (09:53)
[2021-07-17] MEDS: Gabapentin 300 MG CAP PO SCH ×2 (09:54→20:30)
[2021-07-17] MEDS: DULoxetine 60 MG CAP PO SCH (09:54)
[2021-07-17] MEDS: Midodrine HCl 5 MG TAB PO SCH ×3 (09:54→20:29)
[2021-07-17] MEDS: Famotidine 20 MG TAB PO SCH ×2 (09:55→20:29)
[2021-07-17] MEDS: Magnesium Oxide 400 MG TAB PO SCH (09:55)
[2021-07-17] MEDS: Apixaban 5 MG TAB PO SCH ×2 (09:55→20:31)
[2021-07-17] MEDS: Aspirin 81 mg Enteric Coated Tablet PO SCH (20:28)
[2021-07-17] MEDS: Rosuvastatin 20 MG TAB PO SCH (20:28)
[2021-07-17] MEDS: traZODone HCl 50 MG TAB PO SCH (20:29)
[2021-07-17] MEDS ORDERED: Zolpidem Tartrate 5 MG TAB PO SCH (21:30)
[2021-07-18] MEDS: Furosemide 20 MG/2 ML VIAL SLOW IVP SCH ×2 (05:18→13:24)
[2021-07-18] MEDS: Apixaban 5 MG TAB PO SCH ×2 (08:42→20:59)
[2021-07-18] MEDS: cefTRIAXone\\ROCEPHIN 1 GM in Sodium Chloride 0.9% 100 ML IVPB SCH (08:43)
[2021-07-18] MEDS: Magnesium Oxide 400 MG TAB PO SCH (08:43)
[2021-07-18] MEDS: Midodrine HCl 5 MG TAB PO SCH ×3 (08:43→20:59)
[2021-07-18] MEDS: Gabapentin 300 MG CAP PO SCH ×2 (08:43→20:59)
[2021-07-18] MEDS: DULoxetine 60 MG CAP PO SCH (08:43)
[2021-07-18] MEDS: Famotidine 20 MG TAB PO SCH (08:43)
[2021-07-18] MEDS: HYDROcodone/Acetaminophen 5/325 mg Tablet PO PRN ×2 (08:55→21:02)
[2021-07-18] MEDS: HumaLOG 300 UNITS/3 ML VIAL SC PRN (16:58)
[2021-07-18] MEDS ORDERED: Zolpidem Tartrate 5 MG TAB PO PRN (17:11)
[2021-07-18] MEDS: traZODone HCl 50 MG TAB PO SCH (20:59)
[2021-07-18] MEDS: Rosuvastatin 20 MG TAB PO SCH (20:59)
[2021-07-18] MEDS: Aspirin 81 mg Enteric Coated Tablet PO SCH (20:59)
[2021-07-19 05:24] LABS: #Eosinphils 0.1 thou/uL (0.0-0.7); #Lymphocytes 0.3 thou/uL (1.20-3.40); #Monocytes 0.3 thou/uL (0.11-0.59); #Neutrophils 2.5 thou/uL (1.40-6.50); %Basophils 0.2 % (0.0-1.0); %Eosinophils 3.5 % (0.0-10.0); %Lymphocytes 10.4 % (21.0-51.0); %Monocytes 9.6 % (0.0-10.0); %Neutrophils 76.4 % (42.0-75.0); Hemoglobin 9.5 g/dL (14.0-18.0); Mean Corpuscular HGB CONC 32.1 g/dL (32.0-36.0); Mean Corpuscular Volume 87.1 fL (78.0-98.0); Mean Platelet Volume 7.3 fL (7.4-10.4); Platelet Count 202 thou/uL (130-400); RBC Distribution Width 14.4 % (11.5-14.5); Red Blood Cell (RBC) Count 3.41 mill/uL (4.70-6.10); White Blood Cell (WBC) Count 3.2 thou/uL (4.8-10.8)
[2021-07-19] MEDS: HYDROcodone/Acetaminophen 5/325 mg Tablet PO PRN ×3 (05:29→15:50)
[2021-07-19] MEDS: Furosemide 20 MG/2 ML VIAL SLOW IVP SCH ×2 (05:29→15:05)
[2021-07-19] MEDS: HumaLOG 300 UNITS/3 ML VIAL SC PRN ×2 (05:44→11:11)
[2021-07-19 05:53] LABS: ALT (SGPT) 13 U/L (8-55); AST (SGOT) 30 U/L (5-34); Albumin 2.7 g/dL (3.4-4.8); Alkaline Phosphatase 339 U/L (40-110); Anion Gap 9 mmol/L (10-20); BUN (Urea Nitrogen) 25 mg/dL (8.4-25.7); Bilirubin, Total 0.5 mg/dL (0.2-1.2); Calc. Creatinine Clearance 82 mL/min (70-130); Calcium 8.6 mg/dL (7.8-10.44); Carbon Dioxide 26 mmol/L (23-31); Chloride 101 mmol/L (98-107); Globulin 3.5 g/dL (2.4-3.5); Glucose 187 mg/dL (80-115); Potassium 4.3 mmol/L (3.5-5.1); Protein, Total 6.2 g/dL (5.8-8.1); Sodium 132 mmol/L (136-145)
[2021-07-19] MEDS ORDERED: Famotidine 20 MG TAB PO SCH (09:00)
[2021-07-19] MEDS: Gabapentin 300 MG CAP PO SCH (09:12)
[2021-07-19] MEDS: Apixaban 5 MG TAB PO SCH (09:13)
[2021-07-19] MEDS: Magnesium Oxide 400 MG TAB PO SCH (09:13)
[2021-07-19] MEDS: Midodrine HCl 5 MG TAB PO SCH ×2 (09:13→15:50)
[2021-07-19] MEDS: DULoxetine 60 MG CAP PO SCH (09:13)
[2021-07-19] MEDS: cefTRIAXone\\ROCEPHIN 1 GM in Sodium Chloride 0.9% 100 ML IVPB SCH (09:14)
[2021-07-19 15:53] VITALS: BP 122/58; TEMP 98.9
[2021-07-21] MEDS ORDERED: Apixaban 5 MG TAB PO SCH (09:00)
== END 2021-07-19 17:45 | DRG 637 ==
LOC: ERS 12:14 → 2NO 16:37
PROVIDERS: ADMIT Family Medicine; ATTEND Family Medicine
DX: E11.649 Type 2 diabetes mellitus with hypoglycemia without coma (principal); Z20.822 Contact with and (suspected) exposure to COVID-19; Z66 Do not resuscitate; G93.41 Metabolic encephalopathy; I50.23 Acute on chronic systolic (congestive) heart failure; L03.115 Cellulitis of right lower limb; E87.1 Hypo-osmolality and hyponatremia; I13.0 Hypertensive heart and chronic kidney disease with heart failure and stage 1 through stage 4 chronic kidney disease, or unspecified chronic kidney disease; N17.9 Acute kidney failure, unspecified; I82.411 Acute embolism and thrombosis of right femoral vein; I82.431 Acute embolism and thrombosis of right popliteal vein; E11.40 Type 2 diabetes mellitus with diabetic neuropathy, unspecified; N18.30 Chronic kidney disease, stage 3 unspecified; E11.22 Type 2 diabetes mellitus with diabetic chronic kidney disease; R79.89 Other specified abnormal findings of blood chemistry; D63.1 Anemia in chronic kidney disease; F41.9 Anxiety disorder, unspecified; F32.9 Major depressive disorder, single episode, unspecified; I25.10 Atherosclerotic heart disease of native coronary artery without angina pectoris; K74.60 Unspecified cirrhosis of liver; G89.29 Other chronic pain; M54.9 Dorsalgia, unspecified; M54.2 Cervicalgia; R77.8 Other specified abnormalities of plasma proteins; I08.1 Rheumatic disorders of both mitral and tricuspid valves; E11.51 Type 2 diabetes mellitus with diabetic peripheral angiopathy without gangrene; I44.7 Left bundle-branch block, unspecified; I44.1 Atrioventricular block, second degree; Z28.21 Immunization not carried out because of patient refusal; Z99.2 Dependence on renal dialysis; Z79.899 Other long term (current) drug therapy; Z79.82 Long term (current) use of aspirin; Z79.4 Long term (current) use of insulin; Z79.84 Long term (current) use of oral hypoglycemic drugs; Z89.512 Acquired absence of left leg below knee; Z95.5 Presence of coronary angioplasty implant and graft; Z98.890 Other specified postprocedural states; Z83.3 Family history of diabetes mellitus; Z82.49 Family history of ischemic heart disease and other diseases of the circulatory system; Z87.891 Personal history of nicotine dependence
CPT/HCPCS: 36415; 36416; 70450; 71045; 80048; 80053; 80076; 81003; 82553; 82570; 82977; 83036; 83605; 83735; 83930; 83935; 84100; 84156; 84300; 84484; 85025; 86140; 87040; 87077; 87149; 93005; 93010; 96374; 96376; J0696; J1650; J1815; J1940; J3490; U0003; U0005

== ENCOUNTER 2021-12-21 21:32 | Inpatient (IN) | payer MEDICARE ==
[2021-12-21 23:10] LABS: Hemoglobin 8.9 g/dL (14.0-18.0); Mean Corpuscular HGB CONC 29.6 g/dL (32.0-36.0); Mean Corpuscular Hemoglobin 21.5 pg (27.0-31.0); Mean Corpuscular Volume 72.6 fL (78.0-98.0); Platelet Count 217 thou/uL (130-400); Red Blood Cell (RBC) Count 4.14 mill/uL (4.70-6.10); White Blood Cell (WBC) Count 5.1 thou/uL (4.8-10.8)
[2021-12-21] MEDS ORDERED: Furosemide 40 MG/4 ML VIAL ONE (23:15)
[2021-12-21 23:27] LABS: ALT (SGPT) 10 U/L (8-55); AST (SGOT) 30 U/L (5-34); Albumin 3.6 g/dL (3.4-4.8); Alkaline Phosphatase 219 U/L (40-110); Anion Gap 18 mmol/L (10-20); BUN (Urea Nitrogen) 72 mg/dL (8.4-25.7); Bilirubin, Total 2.8 mg/dL (0.2-1.2); Calc. Creatinine Clearance 0 mL/min (70-130); Calcium 8.4 mg/dL (7.8-10.44); Carbon Dioxide 20 mmol/L (23-31); Chloride 98 mmol/L (98-107); Globulin 3.7 g/dL (2.4-3.5); Glucose 120 mg/dL (80-115); Potassium 4.7 mmol/L (3.5-5.1); Protein, Total 7.3 g/dL (5.8-8.1); Sodium 131 mmol/L (136-145)
[2021-12-21 23:30] LABS: #Eosinphils 0.3 thou/uL (0.0-0.7); #Lymphocytes 0.4 thou/uL (1.20-3.40); #Monocytes 0.6 thou/uL (0.11-0.59); #Neutrophils 3.7 thou/uL (1.40-6.50); %Basophils 0.9 % (0.0-1.0); %Eosinophils 5.3 % (0.0-10.0); %Lymphocytes 7.6 % (21.0-51.0); %Monocytes 12.5 % (0.0-10.0); %Neutrophils 73.7 % (42.0-75.0)
[2021-12-21 23:31] LABS: Hypochromia SLIGHT = 6-15 cells (100X) (0-5/hpf); MDiff Complete? YES; Microcytosis SLIGHT = 6-15 cells (100X) (0-5/hpf)
[2021-12-21 23:58] LABS: CKMB 6.9 ng/mL (0-6.6)
[2021-12-22] MEDS ORDERED: HumaLOG 300 UNITS/3 ML VIAL SC PRN ×2 (02:10)
[2021-12-22] MEDS ORDERED: Dextrose 50% Abboject 50 ML SYRINGE SLOW IVP PRN (02:10)
[2021-12-22] MEDS ORDERED: Dextrose 5% in Water 1,000 ML IV PRN (02:10)
[2021-12-22] MEDS ORDERED: Ondansetron ODT 4 MG TAB PO PRN (02:10)
[2021-12-22] MEDS ORDERED: Ondansetron PF 4 MG/2 ML Vial IVP PRN (02:10)
[2021-12-22] MEDS ORDERED: Acetaminophen 650 MG Suppository PR PRN (02:10)
[2021-12-22 02:32] LABS: Lactic Acid 1.8 mmol/L (0.5-2.2)
[2021-12-22 02:41] LABS: Troponin I 0.047 ng/mL (< 0.028)
[2021-12-22] MEDS ORDERED: Electrolyte Replacement Protocol 1 EACH FS SCH (03:30)
[2021-12-22] MEDS ORDERED: Furosemide 40 MG/4 ML VIAL SLOW IVP SCH (03:30)
[2021-12-22 05:54] LABS: #Basophils 0.1 thou/uL (0.0-0.2); #Eosinphils 0.3 thou/uL (0.0-0.7); #Lymphocytes 0.3 thou/uL (1.20-3.40); #Monocytes 0.7 thou/uL (0.11-0.59); #Neutrophils 3.7 thou/uL (1.40-6.50); %Basophils 1.5 % (0.0-1.0); %Eosinophils 6.7 % (0.0-10.0); %Lymphocytes 5.6 % (21.0-51.0); %Monocytes 13.6 % (0.0-10.0); %Neutrophils 72.6 % (42.0-75.0); Hemoglobin 8.7 g/dL (14.0-18.0); Mean Corpuscular HGB CONC 29.7 g/dL (32.0-36.0); Mean Corpuscular Hemoglobin 21.2 pg (27.0-31.0); Mean Corpuscular Volume 71.5 fL (78.0-98.0); Mean Platelet Volume 9.6 fL (7.4-10.4); Platelet Count 197 thou/uL (130-400); RBC Distribution Width 18.4 % (11.5-14.5); Red Blood Cell (RBC) Count 4.08 mill/uL (4.70-6.10)
[2021-12-22 06:05] LABS: Troponin I 0.048 ng/mL (< 0.028)
[2021-12-22 06:43] LABS: Anion Gap 19 mmol/L (10-20); BUN (Urea Nitrogen) 72 mg/dL (8.4-25.7); Calc. Creatinine Clearance 52 mL/min (70-130); Calcium 8.7 mg/dL (7.8-10.44); Carbon Dioxide 16 mmol/L (23-31); Chloride 98 mmol/L (98-107); Glucose 83 mg/dL (80-115); Magnesium 2.3 mg/dL (1.6-2.6); Potassium 4.6 mmol/L (3.5-5.1); Sodium 128 mmol/L (136-145)
[2021-12-22] MEDS ORDERED: Spironolactone 25 MG TAB PO SCH (08:30)
[2021-12-22 09:11] LABS: CK (CPK) 200 U/L (30-200); Iron 24 ug/dL (65-175); Iron Binding Capacity, Total 409 mcg/dL (261-462)
[2021-12-22] MEDS: Metolazone 2.5 MG TAB PO SCH (09:48)
[2021-12-22] MEDS: Apixaban 5 MG TAB PO SCH ×2 (10:44→21:27)
[2021-12-22] MEDS: DULoxetine 60 MG CAP PO SCH (10:44)
[2021-12-22 11:46] LABS: Bilirubin Negative (Negative); Blood, Urine 2+ (Negative); Clarity Extra Turbid (Clear); Glucose, Urine (Dipstick) Normal (Negative); Ketone, Urine Negative (Negative); Leukocyte 250 Leu/uL (Negative); Nitrite Negative (Negative); Protein, Urine (Dipstick) 20 mg/dL (Neg-Trace); Specific Gravity, Urine 1.011 (1.002-1.036); Urobilinogen Normal mg/dL (Less than 2)
[2021-12-22 12:02] LABS: Bacteria/HPF 1+ HPF (None Seen)
[2021-12-22 12:05] LABS: Urine Culture Reflex No No
[2021-12-22 12:06] LABS: Creatinine, Urine 42.35 mg/dL (63-166)
[2021-12-22] MEDS: Furosemide 40 MG/4 ML VIAL SLOW IVP SCH ×2 (15:10→22:39)
[2021-12-22] MEDS ORDERED: Iron, Sodium Ferric Gluconate 250 MG in Sodium Chloride 0.9% 250 ML 250 ML IVPB SCH ×2 (17:15→17:30)
[2021-12-22] MEDS: Midodrine HCl 5 MG TAB PO SCH (21:23)
[2021-12-22] MEDS: traZODone HCl 50 MG TAB PO SCH (21:26)
[2021-12-23] MEDS: Furosemide 40 MG/4 ML VIAL SLOW IVP SCH ×2 (05:19→14:04)
[2021-12-23 07:51] LABS: Albumin 3.2 g/dL (3.4-4.8); Anion Gap 16 mmol/L (10-20); BUN (Urea Nitrogen) 70 mg/dL (8.4-25.7); BUN/Creatinine Ratio 27.89; Calc. Creatinine Clearance 51 mL/min (70-130); Calcium 8.6 mg/dL (7.8-10.44); Carbon Dioxide 21 mmol/L (23-31); Chloride 98 mmol/L (98-107); Glucose 90 mg/dL (80-115); Phosphorus 4.2 mg/dL (2.3-4.7); Potassium 4.2 mmol/L (3.5-5.1); Sodium 131 mmol/L (136-145)
[2021-12-23] MEDS: Apixaban 5 MG TAB PO SCH ×2 (08:04→21:41)
[2021-12-23] MEDS: Midodrine HCl 5 MG TAB PO SCH ×3 (08:04→21:40)
[2021-12-23] MEDS: DULoxetine 60 MG CAP PO SCH (08:04)
[2021-12-23] MEDS: Metolazone 2.5 MG TAB PO SCH (08:04)
[2021-12-23 14:34] VITALS: BMI 45.3
[2021-12-23] MEDS ORDERED: Iron, Sodium Ferric Gluconate 250 MG in Sodium Chloride 0.9% 250 ML 250 ML IVPB SCH (18:00)
[2021-12-23] MEDS ORDERED: Furosemide 100 MG in Sodium Chloride 0.9% 100 ML IVPB SCH (18:00)
[2021-12-23] MEDS ORDERED: Furosemide 40 MG/4 ML VIAL SLOW IVP SCH (18:04)
[2021-12-23] MEDS ORDERED: Spironolactone 100 MG TAB PO SCH (18:15)
[2021-12-23] MEDS ORDERED: Furosemide 100 MG, Admixture Fee 1 EACH in Sodium Chloride 0.9% 90 ML IVPB SCH (18:15)
[2021-12-23] MEDS: Acetaminophen 325 MG TAB PO PRN (18:31)
[2021-12-23] MEDS ORDERED: traMADol HCl 50 MG TAB PO PRN (21:07)
[2021-12-23] MEDS: traZODone HCl 50 MG TAB PO SCH (21:40)
[2021-12-24] MEDS ORDERED: Midodrine HCl 5 MG TAB PO SCH (03:30)
[2021-12-24] MEDS: Albumin 25% 25 GM/100 ML BOT IVPB SCH ×3 (04:42→18:13)
[2021-12-24 05:46] LABS: Albumin 3.1 g/dL (3.4-4.8); Anion Gap 15 mmol/L (10-20); BUN (Urea Nitrogen) 68 mg/dL (8.4-25.7); BUN/Creatinine Ratio 25.86; Calc. Creatinine Clearance 49 mL/min (70-130); Calcium 8.3 mg/dL (7.8-10.44); Carbon Dioxide 22 mmol/L (23-31); Chloride 97 mmol/L (98-107); Glucose 98 mg/dL (80-115); Phosphorus 4.1 mg/dL (2.3-4.7); Potassium 3.9 mmol/L (3.5-5.1); Sodium 130 mmol/L (136-145)
[2021-12-24] MEDS: Metolazone 2.5 MG TAB PO SCH (10:26)
[2021-12-24] MEDS: Midodrine HCl 5 MG TAB PO SCH ×3 (10:26→20:52)
[2021-12-24] MEDS: DULoxetine 60 MG CAP PO SCH (10:27)
[2021-12-24] MEDS: Spironolactone 100 MG TAB PO SCH (10:27)
[2021-12-24] MEDS: Iron, Sodium Ferric Gluconate 250 MG in Sodium Chloride 0.9% 250 ML 250 ML IVPB SCH (10:29)
[2021-12-24] MEDS: Apixaban 5 MG TAB PO SCH ×2 (10:29→20:52)
[2021-12-24] MEDS ORDERED: HYDROcodone/Acetaminophen 5/325 mg Tablet PO PRN ×2 (17:43)
[2021-12-24] MEDS: Docusate 100 MG CAP PO SCH (20:51)
[2021-12-24] MEDS: Polyethylene Glycol 3350 17 GM Packet PO SCH (20:51)
[2021-12-24] MEDS: traZODone HCl 50 MG TAB PO SCH (20:51)
[2021-12-25] MEDS: Albumin 25% 25 GM/100 ML BOT IVPB SCH (00:10)
[2021-12-25] MEDS: Acetaminophen 325 MG TAB PO PRN (03:34)
[2021-12-25] MEDS: Apixaban 5 MG TAB PO SCH ×2 (10:19→20:26)
[2021-12-25] MEDS: Midodrine HCl 5 MG TAB PO SCH ×3 (10:19→20:25)
[2021-12-25] MEDS: Docusate 100 MG CAP PO SCH ×2 (10:20→20:26)
[2021-12-25] MEDS: Metolazone 2.5 MG TAB PO SCH (10:20)
[2021-12-25] MEDS: DULoxetine 60 MG CAP PO SCH (10:20)
[2021-12-25] MEDS: Spironolactone 100 MG TAB PO SCH (10:20)
[2021-12-25] MEDS ORDERED: HYDROcodone/Acetaminophen 5/325 mg Tablet PO PRN (10:37)
[2021-12-25] MEDS: Iron, Sodium Ferric Gluconate 250 MG in Sodium Chloride 0.9% 250 ML 250 ML IVPB SCH (11:17)
[2021-12-25] MEDS: HYDROcodone/Acetaminophen 5/325 mg Tablet PO PRN ×3 (11:34→20:25)
[2021-12-25 11:52] LABS: Anion Gap 13 mmol/L (10-20); BUN (Urea Nitrogen) 70 mg/dL (8.4-25.7); Calc. Creatinine Clearance 48 mL/min (70-130); Calcium 8.4 mg/dL (7.8-10.44); Carbon Dioxide 25 mmol/L (23-31); Chloride 96 mmol/L (98-107); Glucose 121 mg/dL (80-115); Sodium 130 mmol/L (136-145)
[2021-12-25 11:54] LABS: Anisocytosis SLIGHT = 6-15 cells (100X) (0-5/hpf); Band 1 % (5-11); Eosinophils 4 % (0-10); Hemoglobin 8.1 g/dL (14.0-18.0); Hypochromia SLIGHT = 6-15 cells (100X) (0-5/hpf); Lymphocytes 2 % (21-51); MDiff Complete? YES; Mean Corpuscular HGB CONC 30.3 g/dL (32.0-36.0); Mean Corpuscular Hemoglobin 21.4 pg (27.0-31.0); Mean Corpuscular Volume 70.7 fL (78.0-98.0); Monocytes 22 % (0-10); Neutrophil 71 % (42-75); Platelet Morphology Comment PLT clumps seen-ADEQ; RBC Distribution Width 18.8 % (11.5-14.5); Red Blood Cell (RBC) Count 3.81 mill/uL (4.70-6.10); White Blood Cell (WBC) Count 2.4 thou/uL (4.8-10.8)
[2021-12-25] MEDS ORDERED: Torsemide 100 MG TAB PO SCH (18:15)
[2021-12-25] MEDS: Polyethylene Glycol 3350 17 GM Packet PO SCH (20:25)
[2021-12-25] MEDS: traZODone HCl 50 MG TAB PO SCH (20:26)
[2021-12-25 22:35] LABS: Anion Gap 17 mmol/L (10-20); BUN (Urea Nitrogen) 69 mg/dL (8.4-25.7); Calc. Creatinine Clearance 49 mL/min (70-130); Calcium 8.1 mg/dL (7.8-10.44); Carbon Dioxide 20 mmol/L (23-31); Chloride 97 mmol/L (98-107); Glucose 127 mg/dL (80-115); Phosphorus 3.7 mg/dL (2.3-4.7); Potassium 4.1 mmol/L (3.5-5.1); Sodium 130 mmol/L (136-145)
[2021-12-26] MEDS: HYDROcodone/Acetaminophen 5/325 mg Tablet PO PRN ×3 (03:38→18:43)
[2021-12-26] MEDS: Docusate 100 MG CAP PO SCH ×2 (09:30→20:59)
[2021-12-26] MEDS: Midodrine HCl 5 MG TAB PO SCH ×3 (09:30→20:59)
[2021-12-26] MEDS: DULoxetine 60 MG CAP PO SCH (09:30)
[2021-12-26] MEDS: Apixaban 5 MG TAB PO SCH ×2 (09:30→20:59)
[2021-12-26] MEDS: Metolazone 2.5 MG TAB PO SCH (09:30)
[2021-12-26] MEDS: Spironolactone 100 MG TAB PO SCH (09:30)
[2021-12-26] MEDS: Torsemide 100 MG TAB PO SCH (09:46)
[2021-12-26] MEDS: traZODone HCl 50 MG TAB PO SCH (20:59)
[2021-12-26] MEDS: Polyethylene Glycol 3350 17 GM Packet PO SCH (21:00)
[2021-12-27] MEDS: HYDROcodone/Acetaminophen 5/325 mg Tablet PO PRN ×3 (03:06→14:05)
[2021-12-27] MEDS: Metolazone 2.5 MG TAB PO SCH (08:29)
[2021-12-27] MEDS: Torsemide 100 MG TAB PO SCH (08:29)
[2021-12-27] MEDS: Apixaban 5 MG TAB PO SCH (08:30)
[2021-12-27] MEDS: DULoxetine 60 MG CAP PO SCH (08:30)
[2021-12-27] MEDS: Spironolactone 100 MG TAB PO SCH (08:30)
[2021-12-27] MEDS: Midodrine HCl 5 MG TAB PO SCH ×2 (08:30→14:04)
[2021-12-27] MEDS: Docusate 100 MG CAP PO SCH (08:30)
[2021-12-27 12:17] VITALS: TEMP 97.9
[2021-12-27 15:41] VITALS: BP 125/48
[2021-12-27] MEDS ORDERED: Senokot S 8.6-50 MG TAB PO SCH (21:00)
== END 2021-12-27 16:42 | disposition hospice, home (50) | DRG 292 ==
LOC: ERS 21:32 → NEURO 12-22 00:40
PROVIDERS: ADMIT Emergency Medicine; ATTEND Emergency Medicine
DX: I50.43 Acute on chronic combined systolic (congestive) and diastolic (congestive) heart failure (principal); N17.9 Acute kidney failure, unspecified; Z68.41 Body mass index [BMI] 40.0-44.9, adult; E87.1 Hypo-osmolality and hyponatremia; E87.2 Acidosis; G93.40 Encephalopathy, unspecified; N18.4 Chronic kidney disease, stage 4 (severe); I42.0 Dilated cardiomyopathy; Z51.5 Encounter for palliative care; Z66 Do not resuscitate; Z20.822 Contact with and (suspected) exposure to COVID-19; E11.22 Type 2 diabetes mellitus with diabetic chronic kidney disease; D63.1 Anemia in chronic kidney disease; E66.01 Morbid (severe) obesity due to excess calories; E11.51 Type 2 diabetes mellitus with diabetic peripheral angiopathy without gangrene; K74.60 Unspecified cirrhosis of liver; D50.9 Iron deficiency anemia, unspecified; I25.10 Atherosclerotic heart disease of native coronary artery without angina pectoris; F32.A Depression, unspecified; F41.9 Anxiety disorder, unspecified; I25.5 Ischemic cardiomyopathy; Z89.512 Acquired absence of left leg below knee; I25.2 Old myocardial infarction; Z79.82 Long term (current) use of aspirin; Z79.01 Long term (current) use of anticoagulants; Z79.4 Long term (current) use of insulin; Z79.890 Hormone replacement therapy; Z79.84 Long term (current) use of oral hypoglycemic drugs; Z79.899 Other long term (current) drug therapy; Z95.5 Presence of coronary angioplasty implant and graft; Z91.14 Patient's other noncompliance with medication regimen; Z91.19 Patient's noncompliance with other medical treatment and regimen; I95.9 Hypotension, unspecified; K59.00 Constipation, unspecified; I44.1 Atrioventricular block, second degree; I13.10 Hypertensive heart and chronic kidney disease without heart failure, with stage 1 through stage 4 chronic kidney disease, or unspecified chronic kidney disease
CPT/HCPCS: 36415; 36416; 71045; 80048; 80053; 80069; 81001; 82140; 82550; 82553; 82570; 82728; 83540; 83550; 83605; 83735; 83880; 84100; 84156; 84300; 84484; 84540; 85025; 93005; 93010; 93306; 96374; G0306; J1815; J1940; J2916; J7050; P9047; U0003; U0005